=== PATIENT | female | born 1940 ===

== ENCOUNTER 2025-02-28 11:02 | Outpatient (REF) | payer MEDICARE, SELFPAY ==
[2025-02-28 18:21] LABS: MANUAL DIFF FLAG NO
[2025-02-28 18:23] LABS: Hematocrit 42.0 % (37.0-47.0); Hemoglobin 13.3 g/dl (12.0-16.0); Imm Gran Abs Auto 0.01 X10*3/uL (0.00-0.03); Imm Gran Pct Auto 0.2 % (0.0-0.4); Lymphocytes Absolute Auto 2.5 X10*3/uL (1.2-4.9); Mean Corpuscular HGB Conc 31.7 g/dl (31.0-35.0); Mean Corpuscular Hemoglobin 29.6 pg (27.0-33.0); Mean Corpuscular Volume 93.3 fL (80.0-98.0); NRBC Abs Auto 0.000 X10*3/uL (0.0-0.012); NRBC Pct Auto 0.0 /100WBC (0.0-0.2); Platelet Count 276 X10*3/uL (160-400); Red Blood Count 4.50 X10*6/uL (4.20-5.50); White Blood Count 5.8 X10*3/uL (4.8-10.8)
[2025-02-28 18:54] LABS: Alanine Aminotransferase 24 U/L (0-31); Aspartate Amino Transferase 38 U/L (5-31); Estimated Glomerular Filt Rate > 60
[2025-03-07 22:03] LABS: Anti Nuclear Antibody Pattern Nuclear, Speckled; Anti Nuclear Antibody Screen POSITIVE (NEGATIVE); Anti Nuclear Antibody Titer 1:80 titer
[2025-03-08 01:33] LABS: HLA B27 Negative (Negative)
--- OUTSIDE RECORDS SUMMARY | 2025-03-21 20:00 | XMS_ITS | Clinical Summary ---
Author Organization Unknown Care Team Providers Care Research/Program Director Name Role Phone YOAN CANO, BRAD Unavailable Unavaila jennifer MAY RN, EDMUNDO Unavailable Unavailable BRANDIN MARINN, FREDERIC Unavailable Unavailabl e [place] OT, JUANA Unavailable Unavailable CONDINO GRILL ATTENDANT/ADAMSON, DARÍO Unavailable Unav ailable SARA PT, ERNESTO Unavailable Unavailable COYLE PEANUT BLANCHER, CHI Unavailable Unavailable Payers Payer Name Policy Type Policy Number Effective Date Expira tion Date BCBSMA.HMOBLUE.MA.C.NOAUTH [id number] Problems Condition Name Condition Details Condition Category [...] WITH DIABETIC CATARACT Active 07-26 00:00: 00 VP SOFTWARE SUPPORT (CURRENT) USE OF ANTITHROMBOT 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 ELETS Active 07-26 00:00: 00 SENIOR CARE (CURRENT) USE OF SYSTEMIC STEROIDS Active 07-26 00:00: 00 HISTORY OF FALLING Active 07-26 00:00: 00 PERSONAL HISTORY OF NICOTINE DEPENDENCE Active 07-26 00:00: 00 SENIOR CARE (CURRENT) USE OF INSULIN Active 02-05 00:00: 00 SENIOR CARE (CURRENT) USE OF ORAL HYPOGLYCEMIC DRUGS Active [...] mg/mL eye drops 01-12 00:00: 00 Yes [id number] GLAUCOMA 1 drops DAILY 1 drops DAILY (route: ophthalmic (eye)) Med Classific ation: Ophthalmi c Agents Restasis 0.05 % eye drops in a dropperette 01-09 00:00: 00 01-22 00:00 :00 No [id number] Per instruc tions Per instructio ns (route: ophthalmic (eye)) Med Classific ation: Ophthalmi c Agents prednisone 20 mg tablet 01-04 00:00: 00 02-15 23:59 :00 No [id number] INFLAMMATIO N 1 tablet THREE TIMES A DAY 1 tablet THREE TIMES A DAY (route: oral) Med Classific ation: Endocrine calcium 600 mg (as carbonate)- vitamin D3 10 mcg (400 unit) tablet 01-02 00:00: 00 Yes [id number] SUPPLEMENT 1 tablet TWICE A DAY 1 tablet TWICE A DAY (route: oral) Med Classific ation: Electroly te Balance-N utritiona l Products meclizine 12.5 mg tablet 01-01 00:00: 00 Yes [id number] DIZZINESS 1 tablet 2 TIMES DAILY NEEDED 1 tablet 2 TIMES DAILY NEEDED (route: oral) Med Classific ation: Gastroint estinal Therapy Agents brimonidine 0.2 % eye drops 12-30 00:00: 00 01-22 00:00 :00 No [id number] Per instruc tions 3 TIMES A DAY Per instructio ns 3 TIMES A DAY (route: ophthalmic (eye)) Med Classific ation: Ophthalmi c Agents acetazolami de 250 mg tablet 12-28 00:00: 00 01-22 00:00 :00 No [id number] Per instruc tions TWICE A DAY Per instructio ns TWICE A DAY (route: oral) Med Classific ation: Cardiovas cular Therapy Agents sulfamethox azole 800 mg-trimetho prim 160 mg tablet 12-25 00:00: 00 01-22 00:00 :00 No [id number] Per instruc tions TWICE A DAY FOR 10 DAYS Per instructio ns TWICE A DAY FOR 10 DAYS (route: oral) Med Classific ation: Anti-Infe ctive Agents amlodipine 10 mg tablet 01-22 00:00: 00 02-15 23:59 :00 No [id number] HEART 1 tablet DAILY 1 tablet DAILY (route: oral) Med Classific ation: Cardiovas cular Therapy Agents atorvastati n 40 mg tablet 01-22 00:00: 00 Yes [id number] CHOLESTEROL 1 tablet DAILY 1 tablet DAILY (route: oral) Med Classific ation: Cardiovas cular Therapy Agents clopidogrel 75 mg tablet 01-22 00:00: 00 Yes [id number] ANTIPLATELE T 1 tablet DAILY 1 tablet DAILY (route: oral) Med Classific ation: Hematolog ical Agents Flonase Allergy Relief 50 mcg/actuati on nasal spray,suspe nsion 01-22 00:00: 00 Yes [id number] NOSE 2 spray DAILY 2 spray DAILY (route: nasal) Med Classific ation: Respirato ry Therapy Agents metoprolol tartrate 50 mg tablet 01-22 00:00: 00 Yes [id number] HEART 1 tablet DAILY 1 tablet DAILY (route: oral) Med Classific ation: Cardiovas cular Therapy Agents mirtazapine 15 mg tablet 01-22 00:00: 00 02-23 23:59 :00 No [id number] SLEEP 1 tablet BEDTIME 1 tablet BEDTIME (route: oral) Med Classific ation: Central Nervous System Agents pantoprazol e 20 mg tablet,jean yed release 01-22 00:00: 00 02-23 23:59 :00 No [id number] REFLUX 1 tablet 2 TIMES DAILY 1 tablet 2 TIMES DAILY (route: oral) Med Classific ation: Gastroint estinal Therapy Agents cephalexin 500 mg capsule 01-21 00:00: 00 01-28 23:59 :00 No [id number] UTI 1 capsule 4 TIMES DAILY 1 capsule 4 TIMES DAILY (route: oral) Med Classific ation: Anti-Infe ctive Agents metformin 500 mg tablet 01-21 00:00: 00 Yes [id number] DM 1 tablet 2 TIMES DAILY 1 tablet 2 TIMES DAILY (route: oral) Med Classific ation: Endocrine Admelog SoloStar U-100 Insulin lispro 100 unit/mL subcutaneou s pen 02-15 00:00: 00 02-21 23:59 :00 No [id number] BLOOD SUGAR 200-249 3 unit BEFORE MEALS 3 unit BEFORE MEALS ([facility] Med Classific ation: Endocrine Admelog SoloStar U-100 Insulin lispro 100 unit/mL subcutaneou s pen 02-15 00:00: 00 02-21 23:59 :00 No [id number] BLOOD SUGAR 250-299 5 unit BEFORE MEALS 5 unit BEFORE MEALS ([facility] Med Classific ation: Endocrine Admelog SoloStar U-100 Insulin lispro 100 unit/mL subcutaneou s pen 7-24 00:00: 00 02-21 23:59 :00 No [id number] BLOOD SUGAR 300-349 7 unit BEFORE MEALS 7 unit BEFORE MEALS ([facility] Med Classific ation: Endocrine Admelog SoloStar U-100 Insulin lispro 100 unit/mL [facility] s pen 02-16 00:00: 00 02-21 23:59 :00 No [id number] DIABETES 9 unit BEFORE MEALS 9 unit BEFORE MEALS (route: [facility]) Med Classific ation: Endocrine Admelog SoloStar U-100 Insulin lispro 100 unit/mL [facility] s pen 02-15 00:00: 00 02-21 23:59 :00 No [id number] BLOOD SUGAR 400-449 11 unit BEFORE MEALS 11 unit BEFORE MEALS (route: [facility]) Med Classific ation: Endocrine amlodipine 5 mg tablet 02-15 00:00: 00 Yes [id number] HIGH BLOOD PRESSURE 1 tablet DAILY 1 tablet DAILY (route: oral) Med Classific ation: Cardiovas cular Therapy Agents Lantus Solostar U-100 Insulin 100 unit/mL (3 mL) [facility] s pen 02-15 00:00: 00 02-21 23:59 :00 No [id number] DIABETES 12 unit BEDTIME 12 unit BEDTIME (route: [facility]) Med Classific ation: Endocrine metformin 500 mg tablet 02-21 00:00: 00 02-23 23:59 :00 No [id number] diabetes 1 tablet DAILY 1 tablet DAILY (route: oral) Med Classific ation: Endocrine metformin 500 mg tablet 02-24 00:00: 00 02-26 23:59 :00 No [id number] diabetes 1 tablet 2 TIMES DAILY 1 tablet 2 TIMES DAILY (route: oral) Med Classific ation: Endocrine metformin 500 mg tablet 02-27 00:00: 00 Yes [id number] diabetes Per instruc tions 2 TIMES DAILY Per instructio ns 2 TIMES DAILY (route: oral) Med Classific ation: Endocrine omeprazole 20 mg capsule,del ayed release 02-23 00:00: 00 Yes [id number] GERD 1 capsule 2 TIMES DAILY 1 [...] TION MANAGEMENT; RN TO ASSESS AND OBSERVE, PROCESS ENGINEERING MANAGER/ELECTRIC RANGE ASSEMBLER TO OBSERVE FALL RISK FACTORS AND EDUCATE PATIENT/CAREGIVER ON STRATEGIES TO MINIMIZE THE RISK OF FALLING. [code = FALL REDUCTION MANAGEMENT; RN TO ASSESS AND OBSERVE, PROCESS ENGINEERING MANAGER/ELECTRIC RANGE ASSEMBLER TO OBSERVE FALL RISK FACTORS AND EDUCATE PATIENT/CAREGIVER ON STRATEGIES TO MINIMIZE THE RISK OF FALLING.] Future Scheduled Test GENITOURIN BRYON MANAGEMENT; RN TO ASSESS AND TEACH, PROCESS ENGINEERING MANAGER/ELECTRIC RANGE ASSEMBLER TO OBSERVE AND TEACH RELATED TO ALTERED GENITOURINARY STATUS TO MINIMIZE COMPLICATIONS AND REDUCE HOSPITALIZATION. [code = GENITOURINARY MANAGEMENT; RN TO ASSESS AND TEACH, PROCESS ENGINEERING MANAGER/ELECTRIC RANGE ASSEMBLER TO OBSERVE AND TEACH RELATED TO ALTERED GENITOURINARY STATUS TO MINIMIZE COMPLICATIONS AND REDUCE HOSPITALIZATION.] Future Scheduled Test URINARY TR ACT INFECTION MANAGEMENT; RN/ELECTRIC RANGE ASSEMBLER/PROCESS ENGINEERING MANAGER TO PROVIDE SKILLED TEACHING AND SELF- CARE MANAGEMENT RELATED TO UTI TO MINIMIZE COMPLICATIONS AND REDUCE THE RISK OF HOSPITALIZATION. [code = URINARY TRACT INFECTION MANAGEMENT; RN/ELECTRIC RANGE ASSEMBLER/PROCESS ENGINEERING MANAGER TO PROVIDE SKILLED TEACHING AND SELF- CARE MANAGEMENT RELATED TO UTI TO MINIMIZE COMPLICATIONS AND REDUCE THE RISK OF HOSPITALIZATION.] Future Scheduled Test DIABETES M ANAGEMENT; RN TO ASSESS AND TEACH, ELECTRIC RANGE ASSEMBLER/PROCESS ENGINEERING MANAGER TO OBSERVE AND TEACH INSTRUCTIONS OF DIABETIC CARE TO INCLUDE: DIET DIABETIC, SKIN CARE, SIGNS AND SYMPTOMS OF HYPO/HYPERGLYCEMIA, PROPER ADMINISTRATION OF DIABETIC MEDICATION. RN/ELECTRIC RANGE ASSEMBLER/PROCESS ENGINEERING MANAGER TO INSTRUCT ON DIABETIC FOOT CARE AND MONITOR FOR SKIN LESIONS ON LOWER EXTREMITIES. RN TO ASSESS AND TEACH, ELECTRIC RANGE ASSEMBLER/PROCESS ENGINEERING MANAGER TO OBSERVE AND TEACH PATIENT/CAREGIVER ABILITY TO PERFORM AND RECORD BLOOD GLUCOSE TESTING ORDERED AND TO REPORT ABNORMAL FINDINGS TO PHYSICIAN. RN/ELECTRIC RANGE ASSEMBLER/PROCESS ENGINEERING MANAGER MAY PERFORM BLOOD GLUCOSE TEST NEEDED. RN/ELECTRIC RANGE ASSEMBLER/PROCESS ENGINEERING MANAGER TO REPORT TO PHYSICIAN BLOOD GLUCOSE READINGS GREATER THAN 350 OR LESS THAN 70 RN/ELECTRIC RANGE ASSEMBLER/PROCESS ENGINEERING MANAGER TO INSTRUCT PATIENT ON IMPORTANCE OF HGBA1C MONITORING, KIDNEY FUNCTION TEST, EYE AND FOOT EXAMS. [code = DIABETES MANAGEMENT; RN TO ASSESS AND TEACH, ELECTRIC RANGE ASSEMBLER/PROCESS ENGINEERING MANAGER TO OBSERVE AND TEACH INSTRUCTIONS OF DIABETIC CARE TO INCLUDE: DIET DIABETIC, SKIN CARE, SIGNS AND SYMPTOMS OF HYPO/HYPERGLYCEMIA, PROPER ADMINISTRATION OF DIABETIC MEDICATION. RN/ELECTRIC RANGE ASSEMBLER/PROCESS ENGINEERING MANAGER TO INSTRUCT ON DIABETIC FOOT CARE AND MONITOR FOR SKIN LESIONS ON LOWER EXTREMITIES. RN TO ASSESS AND TEACH, ELECTRIC RANGE ASSEMBLER/PROCESS ENGINEERING MANAGER TO OBSERVE AND TEACH PATIENT/CAREGIVER ABILITY TO PERFORM AND RECORD BLOOD GLUCOSE TESTING ORDERED AND TO REPORT ABNORMAL FINDINGS TO PHYSICIAN. RN/ELECTRIC RANGE ASSEMBLER/PROCESS ENGINEERING MANAGER MAY PERFORM BLOOD GLUCOSE TEST NEEDED. RN/ELECTRIC RANGE ASSEMBLER/PROCESS ENGINEERING MANAGER TO REPORT TO PHYSICIAN BLOOD GLUCOSE READINGS GREATER THAN 350 OR LESS THAN 70 RN/ELECTRIC RANGE ASSEMBLER/PROCESS ENGINEERING MANAGER TO INSTRUCT PATIENT ON IMPORTANCE OF HGBA1C MONITORING, KIDNEY FUNCTION TEST, EYE AND FOOT EXAMS.] Future Scheduled Test RN TO OBSE RVE, ASSESS, EVALUATE, AND DEVELOP AN INDIVIDUALIZED PLAN OF CARE. AGENCY MAY ACCEPT ORDERS FROM CONSULTING PHYSICIANS RN TO OBSERVE AND ASSESS, PROCESS ENGINEERING MANAGER/ELECTRIC RANGE ASSEMBLER TO OBSERVE FOR RISK FOR FALLS AND INSTRUCT IN FALL PREVENTION, HOME SAFETY, MEDICATION MANAGEMENT, INFECTION PREVENTION, AND NUTRITION MANAGEMENT. RN/PROCESS ENGINEERING MANAGER/ELECTRIC RANGE ASSEMBLER NURSE MAY PERFORM O2 SATURATION LEVEL ON ADMISSION AND PRN FOR RN TO ASSESS/PROCESS ENGINEERING MANAGER TO OBSERVE PATIENT, WITH NOTIFICATION TO THE PHYSICIAN IF SATURATION IS 90% IN THE ABSENCE OF MORE SPECIFIC PARAMETERS FROM THE PHYSICIAN. AGENCY MAY PERFORM A RESUMPTION OF CARE VISIT FOLLOWING ANY HOSPITAL ADMISSION. RN/PROCESS ENGINEERING MANAGER/ELECTRIC RANGE ASSEMBLER TO MONITOR CO-MORBID CONDITIONS LISTED ON THE PLAN OF CARE AND ANY NEW CONDITIONS THAT PRESENT THEMSELVES DURING THIS EPISODE TO IDENTIFY CHANGES AND INTERVENE TO MINIMIZE COMPLICATIONS. [code = RN TO OBSERVE, ASSESS, EVALUATE, AND DEVELOP AN INDIVIDUALIZED PLAN OF CARE. AGENCY MAY ACCEPT ORDERS FROM CONSULTING PHYSICIANS RN TO OBSERVE AND ASSESS, PROCESS ENGINEERING MANAGER/ELECTRIC RANGE ASSEMBLER TO OBSERVE FOR RISK FOR FALLS AND INSTRUCT IN FALL PREVENTION, HOME SAFETY, MEDICATION MANAGEMENT, INFECTION PREVENTION, AND NUTRITION MANAGEMENT. RN/PROCESS ENGINEERING MANAGER/ELECTRIC RANGE ASSEMBLER NURSE MAY PERFORM O2 SATURATION LEVEL ON ADMISSION AND PRN FOR RN TO ASSESS/PROCESS ENGINEERING MANAGER TO OBSERVE PATIENT, WITH NOTIFICATION TO THE PHYSICIAN IF SATURATION IS 90% IN THE ABSENCE OF MORE SPECIFIC PARAMETERS FROM THE PHYSICIAN. AGENCY MAY PERFORM A RESUMPTION OF CARE VISIT FOLLOWING ANY HOSPITAL ADMISSION. RN/PROCESS ENGINEERING MANAGER/ELECTRIC RANGE ASSEMBLER TO MONITOR CO-MORBID CONDITIONS LISTED ON THE PLAN OF CARE AND ANY NEW CONDITIONS THAT PRESENT THEMSELVES DURING THIS EPISODE TO IDENTIFY CHANGES AND INTERVENE TO MINIMIZE COMPLICATIONS.] Future Scheduled Test PAIN MANAG EMENT; RN TO ASSESS AND TEACH, ELECTRIC RANGE ASSEMBLER/PROCESS ENGINEERING MANAGER TO OBSERVE AND TEACH AND PROVIDE EDUCATION ON PAIN MANAGEMENT TECHNIQUES. [code = PAIN MANAGEMENT; RN TO ASSESS AND TEACH, ELECTRIC RANGE ASSEMBLER/PROCESS ENGINEERING MANAGER TO OBSERVE AND TEACH AND PROVIDE EDUCATION ON PAIN MANAGEMENT TECHNIQUES.] Future Scheduled Test RISK FOR H OSPITALIZATION; RN TO ASSESS/TEACH, ELECTRIC RANGE ASSEMBLER/PROCESS ENGINEERING MANAGER TO OBSERVE/TEACH PATIENT/CAREGIVER ON RISK FOR HOSPITALIZATION/EMERGENCY ROOM VISITS, TEACH SIGNS AND SYMPTOMS THAT PUT PATIENT AT RISK, WHEN TO NOTIFY NURSE/PHYSICIAN OF COMPLICATIONS/DECLINE, AND WHEN TO CALL 911. [code = RISK FOR HOSPITALIZATION; RN TO ASSESS/TEACH, ELECTRIC RANGE ASSEMBLER/PROCESS ENGINEERING MANAGER TO OBSERVE/TEACH PATIENT/CAREGIVER ON RISK FOR HOSPITALIZATION/EMERGENCY ROOM VISITS, TEACH SIGNS AND SYMPTOMS THAT PUT PATIENT AT RISK, WHEN TO NOTIFY NURSE/PHYSICIAN OF COMPLICATIONS/DECLINE, AND WHEN TO CALL 911.] Future Scheduled Test CARDIOVASC ULAR SYSTEM; RN TO ASSESS/TEACH, PROCESS ENGINEERING MANAGER/ELECTRIC RANGE ASSEMBLER TO OBSERVE/TEACH RELATED TO ALTERED CARDIOVASCULAR STATUS TO MINIMIZE COMPLICATIONS AND REDUCE HOSPITALIZATION. [code = CARDIOVASCULAR SYSTEM; RN TO ASSESS/TEACH, PROCESS ENGINEERING MANAGER/ELECTRIC RANGE ASSEMBLER TO OBSERVE/TEACH RELATED TO ALTERED CARDIOVASCULAR STATUS TO MINIMIZE COMPLICATIONS AND REDUCE HOSPITALIZATION.] Future Scheduled Test URINARY MO LECULAR TESTING PROTOCOL UP TO 2 PRN RN/PROCESS ENGINEERING MANAGER/ELECTRIC RANGE ASSEMBLER VISITS MAY BE PERFORMED FOR S/S OF UTI. RN TO ASSESS, PROCESS ENGINEERING MANAGER/ELECTRIC RANGE ASSEMBLER TO OBSERVE INITIATION OF UTI PROTOCOL. RN/ELECTRIC RANGE ASSEMBLER/PROCESS ENGINEERING MANAGER TO INSTRUCT PATIENT AND/OR CAREGIVER ON S/S OF UTI TO REPORT TO RN/ELECTRIC RANGE ASSEMBLER/PROCESS ENGINEERING MANAGER IF NEW OR WORSENING SYMPTOMS. DRINK PLENTY OF WATER THROUGHOUT THE DAY TO MAINTAIN HYDRATION (UNLESS CONTRAINDICATED.) URINATE WHEN THE URGE IS FELT, DO NOT WAIT. WASH GENITALS DAILY. WIPE FROM FRONT TO BACK AFTER HAVING A BOWEL MOVEMENT. RN/ELECTRIC RANGE ASSEMBLER/PROCESS ENGINEERING MANAGER TO OBTAIN MOLECULAR URINE TESTING BY OPTION 1 OR OPTION 2 (OPTION 1) RN/ELECTRIC RANGE ASSEMBLER/PROCESS ENGINEERING MANAGER TO OBTAIN U/A WITH REFLEX TO UTI PANEL (MOLECULAR) VIA CLEAN CATCH URINE AND IF UNABLE TO OBTAIN MAY PERFORM AN IN AND OUT CATH. IF PATIENT HAS INDWELLING CATHETER MAY OBTAIN FROM SAMPLING PORT. (OPTION 2) RN/ELECTRIC RANGE ASSEMBLER/PROCESS ENGINEERING MANAGER TO OBTAIN UTI PANEL (MOLECULAR) VIA SWAB COLLECTION METHOD FROM ADULT BRIEF/DIAPER OR PAD IF PATIENT IS INCONTINENT. NOTIFY PROVIDER OF RESULTS AND OBTAIN FURTHER ORDERS. [code = URINARY MOLECULAR TESTING PROTOCOL UP TO 2 PRN RN/PROCESS ENGINEERING MANAGER/ELECTRIC RANGE ASSEMBLER VISITS MAY BE PERFORMED FOR S/S OF UTI. RN TO ASSESS, PROCESS ENGINEERING MANAGER/ELECTRIC RANGE ASSEMBLER TO OBSERVE INITIATION OF UTI PROTOCOL. RN/ELECTRIC RANGE ASSEMBLER/PROCESS ENGINEERING MANAGER TO INSTRUCT PATIENT AND/OR CAREGIVER ON S/S OF UTI TO REPORT TO RN/ELECTRIC RANGE ASSEMBLER/PROCESS ENGINEERING MANAGER IF NEW OR WORSENING SYMPTOMS. DRINK PLENTY OF WATER THROUGHOUT THE DAY TO MAINTAIN HYDRATION (UNLESS CONTRAINDICATED.) URINATE WHEN THE URGE IS FELT, DO NOT WAIT. WASH GENITALS DAILY. WIPE FROM FRONT TO BACK AFTER HAVING A BOWEL MOVEMENT. RN/ELECTRIC RANGE ASSEMBLER/PROCESS ENGINEERING MANAGER TO OBTAIN MOLECULAR URINE TESTING BY OPTION 1 OR OPTION 2 (OPTION 1) RN/ELECTRIC RANGE ASSEMBLER/PROCESS ENGINEERING MANAGER TO OBTAIN U/A WITH REFLEX TO UTI PANEL (MOLECULAR) VIA CLEAN CATCH URINE AND IF UNABLE TO OBTAIN MAY PERFORM AN IN AND OUT CATH. IF PATIENT HAS INDWELLING CATHETER MAY OBTAIN FROM SAMPLING PORT. (OPTION 2) RN/ELECTRIC RANGE ASSEMBLER/PROCESS ENGINEERING MANAGER TO OBTAIN UTI PANEL (MOLECULAR) VIA SWAB COLLECTION METHOD FROM ADULT BRIEF/DIAPER OR PAD IF PATIENT IS INCONTINENT. NOTIFY PROVIDER OF RESULTS AND OBTAIN FURTHER ORDERS.] Future Scheduled Test MEDICATION MANAGEMENT; RN/PROCESS ENGINEERING MANAGER/ELECTRIC RANGE ASSEMBLER TO REVIEW MEDICATIONS FOR INTERACTIONS, EFFECTIVENESS OF DRUG THERAPY, AND SIGNS/SYMPTOMS OF ADVERSE REACTIONS. MAY INSTRUCT AND REINFORCE MEDICATION TEACHING RELATED TO THE USE OF MEDICATIONS, DOSAGE, FREQUENCY, PURPOSE, SIDE EFFECTS, AND TO REPORT COMPLICATIONS. [code = MEDICATION MANAGEMENT; RN/PROCESS ENGINEERING MANAGER/ELECTRIC RANGE ASSEMBLER TO REVIEW MEDICATIONS FOR INTERACTIONS, EFFECTIVENESS OF DRUG THERAPY, AND SIGNS/SYMPTOMS OF ADVERSE REACTIONS. MAY INSTRUCT AND REINFORCE MEDICATION TEACHING RELATED TO THE USE OF MEDICATIONS, DOSAGE, FREQUENCY, PURPOSE, SIDE EFFECTS, AND TO REPORT COMPLICATIONS.] Medication 2025-03-02 00:00:00 metformin 500 mg tablet [code = 132729] Med Classification: Endocrine Goal 2025-02-15 Patient Goal - T O FEEL BETTER Goal Patient Goal - T O FEEL BETTER Goal Provider Goal - Goal Provider Goal [...] End Date/Time Encounter Type Admission Type Attending [facility] Care Department Encounter ID Discharge Date Discharge Status Discharge Condition Discharge Reason Percent Goals Met 2025-01-22 00:00:00 2025-03-22 00:00:00 Outpatient NEW ADMISSION EDMUNDO MAY [facility] [id number] .
== END 2025-02-28 11:03 | disposition home or self-care (01) ==
LOC: HO.HKASLDS 11:02
PROVIDERS: PCP Internal Medicine; Visit Provider Internal Medicine Rheumatology
DX: M25.50 Pain in unspecified joint (principal); H20.00 Unspecified acute and subacute iridocyclitis; Z79.899 Other long term (current) drug therapy
CPT/HCPCS: 36415; 82565; 84450; 84460; 85025; 85652; 86038; 86039; 86140; 86812; 99202

== ENCOUNTER 2025-02-28 11:02 | Outpatient (AMB) | payer MEDICARE, SELFPAY ==
--- NOTE | 2025-02-28 11:03 | A.OFFVIS_ITS ---
Vital Signs 02/28/25 11:06 Height 5 ft 6 in Weight 143 lb BMI 23.1 BP 110/70 Blood Pressure Location Rt brachial Position Sitting Pulse 84 Pulse Source Pulse Oximeter Pulse Oximetry (%) 95 Oxygen Delivery Method Room Air Intake Visit Reasons: Uveitis/Opthalmology ref Intake Note: Patient resents today for uevitis an joint pain. Accompanied by: Daughter Allergies aspirin Allergy (Mild, Verified 02/28/25 11:08) Rash HPI HPI Uveitis/Opthalmology ref: Details: New patient evaluation. She is accompanied with her daughter Gabriela. 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 Per horse racetrack manager's note she had a combined presentation raising concern for sclerouveitis with consideration of initial presentation. 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 She had laboratory workup and a chest x-ray, which I do not have results of. On 01/12/2025 eye exam reveals essentially resolved granuloma/follicules bilateral on oral prednisone 60 mg q.day suggesting inflammatory etiology. Prednisone was tapered to 40 mg for 1 week, 30 mg for 1 week, 20 mg for 1 week and 15 mg for 1 week, 10 mg for 1 week, 7.5 mg for 1 week, 5 mg for 1 week, then stop. She then developed dyspnea and was admitted in the hospital. She has a new diagnosis of diabetes on metformin. She was discharged to rehab. At this time she has physical therapy and occupational therapy at home. She feels that with prednisone course her eyes feel better. 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 She has some vision in her left eye. During her hospitalization she was treated for thrush. She developed sores in her tongue, which have resolved. She had a stroke last year resulting in residual weakness of left upper and lower extremity. Pain in joints, shoulders, hips, knees for 3 years. Worse in the last year after stroke. Ankles are swollen. Tylenol is ineffective. She does not take any NSAIDs. She was seeing Dr. Montero for knee OA receiving regular cortisone injections every 6 months. MS 2-2.5 hours Denies fevers, weight loss. She is experiencing fatigue. Denies dry eyes, dry mouth, hearing loss, ringing in ears, bleeding gums, sores in mouth, hoarseness, chest pain, Raynaud's phenomenon, nausea, vomiting, diarrhea, urinary symptoms, photosensitivity, hair loss, psoriasis, or rash. She has difficulty swallowing from the stroke. Her daughter has lupus. Past medical history significant for diabetes, hepatic steatosis, hyperlipidemia, hypertension, osteoarthritis. Past surgical history is significant for hysterectomy. She denies smoking or drinking alcohol. Denies any use of recreational drugs. Physical Exam Vital Signs: Last Vital Signs Pulse 84 02/28/25 11:06 BP 110/70 02/28/25 11:06 Pulse Ox 95 02/28/25 11:06 Oxygen Delivery Method Room Air 02/28/25 11:06 BMI result Body Mass Index 23.1 Const Other: General: Comfortable CVS: RRR Respiratory: clear to auscultation bilaterally. Good respiratory effort Skin: No lesions seen MSK: Tender right 2nd to 5th MCPs, bilateral PIPs, ulnar deviation of bilateral hands at MCPs. Right 2nd and 4th PIP synovitis present. She has Heberden nodes and Usman's nodes. Tender left shoulder with limited abduction actively 90 degrees, which increases to 160 passively. She has pain with internal and external rotation of left shoulder with limitation in range of motion. Right shoulder abduction is full. She has internal external rotation of right shoulder but it is not full. She has [id number] effusions of bilateral knees with tenderness on palpation. Bilateral knee flexion is 100 degrees. Limited full external rotation of bilateral hips. Bilateral ankle tenderness and MTP tenderness. She has bilateral valgus valgus deformity. Assessment & Plan Assessment & Plan (1) Multiple joint pain: Comment: Her clinical exam of the hands is concerning for a chronic deforming inflammatory arthritis with superimposed osteoarthritis. She has synovitis in right 2nd and 4th PIP, which can also be due to osteoarthritis. She does not have any other signs or symptoms suggestive of a systemic connective tissue disease. I will pursue further workup for inflammatory arthritis and obtain results of recent workup ordered by her horse racetrack manager's. Code(s): M25.50 - Pain in unspecified joint Category: Medical Plan: Requesting lab results ordered in November by Dr. Sumner Requesting chest x-ray results Labs ordered including HLA B27 Bilateral hands and feet x-rays ordered Return to clinic in after 2 weeks next available appointment to review results (2) Acute anterior uveitis of both eyes: Code(s): H20.00 - Unspecified acute and subacute iridocyclitis Category: Medical Plan: Being managed by Ophthalmology Patient does not have an appointment with Dr. Sumner because it was canceled due to her recent hospitalization. I have asked her to schedule one. Orders: Orders Erythrocyte Sedimentation Rate Today H20.00 - Unspecified acute and subacute iridocyclitis, M25.50 - Pain in unspecified joint, Z79.899 - Other rodent exterminator (current) drug therapy Aspartate Amino Transferase Today H20.00 - Unspecified acute and subacute iridocyclitis, M25.50 - Pain in unspecified joint HLA B27 Today H20.00 - Unspecified acute and subacute iridocyclitis, M25.50 - Pain in unspecified joint XR Foot Luisito 3V Today H20.00 - Unspecified acute and subacute iridocyclitis, M25.50 - Pain in unspecified joint XR Hand Bilat min 3v Today H20.00 - Unspecified acute and subacute iridocyclitis, M25.50 - Pain in unspecified joint ERIC Reflex Titer and Pattern Today H20.00 - Unspecified acute and subacute iridocyclitis, M25.50 - Pain in unspecified joint C Reactive Protein Today H20.00 - Unspecified acute and subacute iridocyclitis, M25.50 - Pain in unspecified joint, Z79.899 - Other rodent exterminator (current) drug therapy Creatinine Today H20.00 - Unspecified acute and subacute iridocyclitis, M25.50 - Pain in unspecified joint Alanine Aminotransferase Today H20.00 - Unspecified acute and subacute iridocyclitis, M25.50 - Pain in unspecified joint Complete Blood Count Auto Diff Today H20.00 - Unspecified acute and subacute iridocyclitis, M25.50 - Pain in unspecified joint Hepatitis B,C Profile Today H20.00 - Unspecified acute and subacute iridocyclitis, M25.50 - Pain in unspecified joint Coding Level of Care Code New Pt Level 4 (62484) Diagnoses Multiple joint pain M25.50 Acute anterior uveitis of both eyes H20.00
[2025-02-28 11:06] VITALS: BP 110/70; PULSE 84; O2SAT 95; BMI 23.1
--- OUTSIDE RECORDS SUMMARY | 2025-02-28 11:48 | XMS_ITS | Clinical Summary ---
Author Organization [facility] Address [address] [place] [address] Phone Care Team Providers Care Crosstie Inspector Name Role Phone Candelario Marsh MD Primary Care Provider [phone] Francisco White MD Unavailable [phone] Subhash Bui MD Unavailable + Allergies Active Allergy Reactions Criticality Noted Date Comments Aspirin 06/05/2019 Medications duloxetine HCl (DULOXETINE ORAL) Take by mouth. Active fluticasone propionate (FLONASE) 50 mcg/actuation nasal spray 1 spray by Nasal route daily. Active montelukast sodium (MONTELUKAST ORAL) Take by mouth. Active OMEPRAZOLE ORAL Take by mouth. Active quetiapine fumarate (QUETIAPINE ORAL) Take by mouth. Active SIMVASTATIN ORAL Take by mouth. Active traZODone (DESYREL) 25 mg half tablet Take 50 mg by mouth nightly at bedtime. Active cyanocobalamin, vitamin B-12, (VITAMIN B-12 ORAL) Take by mouth. Active calcium carbonate/vitam in D3 (CALCIUM 500 + D ORAL) Take by mouth. Active timolol (TIMOPTIC) 0.25 % ophthalmic solution Place 1 drop into each eye 2 (two) times a day. Active netarsudil mesylate (RHOPRESSA OPHT) Apply to eye. Active brinzolamide/br imonidine tart (SIMBRINZA OPHT) Apply to eye. Active Active Problems No known active problems Social History Tobacco Use Types Packs/Day Years Used Date Smoking Tobacco: Never Smokeless Tobacco: Never Alcohol Use Standard Drinks/Week Comments Never 0 (1 standard drink = 0.6 oz pur e alcohol) Education Answer Date Recorded Are you interested in more education? Not on aden e 11/20/2022 Are you concerned about learning? Not on file 11/20/2022 No 11/20/2022 No 11/20/2022 Digital Access Answer Date Recorded No 12/19/2022 No 12/19/2022 No 12/19/2022 Reliable internet access at home? Not on file 12/19/2022 Device with a working camera? Not on file Comments Unknown Sex and Gender Information Value Date Recorded Sex Assigned at Not on file Legal Sex Female 11:01 AM EDT Gender Identity Not on file Sexual Orientation Not on file Last Filed Vital Signs Vital Sign Reading Time Taken Comments Blood Pressure 162/80 06/05/2019 11:53 AM EST Pulse 74 06/05/2019 11:53 AM EST Temperature - - Respiratory Rate 17 06/05/2019 11:53 AM EST Oxygen Saturation - - Inhaled Oxygen Concentration - - Weight - - Height - - Body Mass Index - - Plan of Treatment Health Maintenance Due Date Last Done Comments DEPRESSION SCREENING 1951 OSTEOPOROSIS SCREENING INITI AL (ONE-TIME) 11/27/2004 ZOSTER VACCINES (2 of 3) 11/13/2012 09/18/2012 RSV VACCINE (1 - 1-dose 75+ series) 11/27/2014 Adult Td,Tdap Booster 09/14/2022 09/14/2012 , 08/13/2011 COVID-19 VACCINE (4 - 2023-2 5 season) 2024 09/28/2020, 09/07/2020, 08/31/2020 PNEUMOCOCCAL VACCINES (50+ years) Completed 11/04/2016, 06/06/2009 HEPATITIS A VACCINES Aged Out No long er eligible based on patient's age to complete this topic HIB VACCINES Aged Out No longer eligi ble based on patient's age to complete this topic MENINGOCOCCAL VACCINES (ACWY) Aged Out No longer eligible based on patient's age to complete this topic MENINGOCOCCAL VACCINES (B) Aged Out N o longer eligible based on patient's age to complete this topic Medical Devices Not on file Insurance [address] [facility] [address] MEDICARE HMO BLUE REPLACEMENT [address] [facility] [address] MEDICARE HMO BLUE REPLACEMENT [address] [facility] [address] MEDICARE HMO BLUE REPLACEMENT [address] [facility] [address] MEDICARE HMO BLUE REPLACEMENT [address] [facility] [address] MEDICARE HMO BLUE REPLACEMENT [address] [facility] [address] MEDICARE HMO BLUE REPLACEMENT [address] [facility] [address] MEDICARE HMO BLUE REPLACEMENT Care Teams Crosstie Inspector Relationship Specialty Start Date End Date Candelario Marsh MD [address] [place] [address] PCP - General Internal Medicine 05/04/19 Francisco White MD [address] [place] [address], [address] [place] [address] Ophthalmology 06/07/19 Subhash Bui MD [address] [place] [address] [address] [address] Pulmonary Disease 06/07/19 Additional Source Comments The information contained in this document represents components of the legal health record. It is not the complete legal health record.[facility]
--- OUTSIDE RECORDS SUMMARY | 2025-02-28 11:48 | XMS_ITS | Encounter Summary ---
Author Organization [facility] Address [address] [place] [address] Care Team Providers Care Antique Refinisher Name Role Phone Candelario Marsh MD Primary Care Provider [phone] Reason for Visit * Reason Onset Date Comments Request For Order(s) 02/26/2025 [employer] [id number] Encounter Details Date Type Department Care Team (Late st Contact Info) Description 02/26/2025 [facility] [address] [place] [phone] Candelario Marsh MD [address] [place] [id number] Request For Order(s) ([employer] [id number]) Social History Tobacco Use Types Packs/Day Years Used Date Smoking Tobacco: Never Smokeless Tobacco: Never Alcohol Use Standard Drinks/Week Comments No 0 (1 standard drink = 0.6 oz pur e alcohol) ocaasionaly Housing Instability Answer Date Recorde d Are you worried that in the next 2 months you may not have stable housing? No 01/26/2025 Food Access & Nutrition Answer Date Rec orded Do you have access to a vari ety of food including fruits and vegetables? Yes 01/26/2025 Access to Healthcare Answer Date Record ed Within the last 3 months, ho w many times did you visit the emergency department for your medical care? 5 02/14/2025 Health Literacy Answer Date Recorded How often do you need to hav e someone help you when you read instructions, pamphlets, or other written material from your doctor or pharmacy? Never 01/26/2025 Caregiver: How often do you need to have someone help you when you read instructions, pamphlets, or other written material from your doctor or pharmacy? Not on file 01/26/2025 Financial Risk Answer Date Recorded How hard is it for you to pa y for the very basics like food, housing, medical care, and air conditioning / heating? Not asked 02/14/2025 Transportation Answer Date Recorded Has the lack of transportati on kept you from meetings, work, or from getting things needed for daily living? Not asked 2024 Has the lack of transportati on kept you from medical appointments or from getting medications? Not asked 02/14/2025 Social Isolation Answer Date Recorded How often do you feel lonely or isolated from those around you? Not asked 02/14/2025 Food Risk Answer Date Recorded Within the past 12 months we worried whether our food would run out before we got money to buy more. Not asked 02/14/2025 Within the past 12 months th e food we bought just didn't last and we didn't have money to get more. Not asked 02/14/2025 Dependent Care Answer Date Recorded Do you need help finding or paying for care for your loved ones. For example, child development instructor or elderly care for an older adult? No 01/26/2025 Education Answer Date Recorded Do you think completing more education or training, like finishing a GED, going to college, or learning a trade, would be helpful for you? N/A 02/14/2025 Employment and Income Answer Date Recor ded During the last four weeks, have you been actively looking for work? No 01/26/2025 Living Situation Answer Date Recorded What is your living situation? 0 02/14/2025 Interpersonal Safety Answer Date Record ed Physical Abuse 01/26/2025 Verbal Abuse 01/26/2025 Comments No Sex and Gender Information Value Date Recorded Sex Assigned at Not on file Legal Sex Female 4:01 AM EST Gender Identity Not on file Sexual Orientation Straight 01/26/2025 5: 58 PM EDT documented as of this encounter Progress Notes * Olga Larios MA - 02/27/2025 9:15 AM EDT Signed and faxed. * Abe Jolly - 02/26/2025 10:10 AM EDT Faxed order received from [facility]. Orders placed in Candelario Marsh MD bin for signing, please fax to [phone] documented in this encounter Plan of Treatment Upcoming Encounters Date Type Department Care Team (Late st Contact Info) Description 03/02/2025 11:00 AM EDT Office Visit Internal Medicine - [address] [address] Candelario Marsh MD [address] [place] [address] 03/15/2025 11:00 AM EDT Ancillary Procedure [facility] [address] [facility] [address] [place] [address] 03/19/2025 11:20 AM EDT Office Visit Neurostroke - [place] [address] [place] [address] Cortez Ortiz PA [address] [place] [address] 04/03/2025 1:00 PM EDT Procedure visit Urogynecology - [place] [address] [place] [address] Kamilah Mcconnell MD [address] [facility] [address] [place] [address] 04/20/2025 1:30 PM EDT Medication Management Adult Medicine - [place] [address] [place] [address] Mary Becker, PharmD [address] [place] [address] documented as of this encounter Goals Goal Patient Goal Type Associated Problems Recent Progress Patient-Stated? Author Adherence to Treatment Plan General Merly Rodriguez, RN Note: Pt will take her BG reading before all meals Pt will carry glucose gel or tablets with her at all times and keep at the bedside as well documented as of this encounter Visit Diagnoses Not on filedocumented in this encounter Care Teams Antique Refinisher Relationship Specialty Start Date End Date Candelario Marsh MD [address] [place] [address] PCP - General Internal Medicine 04/22/17 documented as of this encounter
== END 2025-02-28 12:35 | disposition home or self-care (01) ==
LOC: HO.RHES 11:02
PROVIDERS: PCP Internal Medicine; Visit Provider Internal Medicine Rheumatology
DX: M25.50 Pain in unspecified joint (principal); H20.00 Unspecified acute and subacute iridocyclitis
CPT/HCPCS: 99204

== ENCOUNTER 2025-03-02 13:05 | Outpatient (REF) | payer MEDICARE, SELFPAY ==
--- NOTE | ~2025-03-02 | XR_ITS ---
XR FOOT LUISITO 3V HISTORY: Ali arthritic joint pain. Rule out inflammatory arthritis. COMPARISON: None. TECHNIQUE: 3 views of the each foot were obtained. FINDINGS: RIGHT FOOT: There is mild diffuse osteopenia. No periarticular osteopenia. No malalignment. Degenerative appearing arthritis throughout the interphalangeal joints. Mild degenerative arthritis in the first MTP joint. No periarticular erosions identified. There is a normal plantar arch. The midfoot and hindfoot appear normal. There are tiny dorsal and plantar calcaneal spurs. There are vascular calcifications in the soft tissues. Soft tissues otherwise normal. LEFT KNEE: There is mild diffuse osteopenia. No periarticular osteopenia. No malalignment. Degenerative appearing arthritis throughout the interphalangeal joints. Mild degenerative arthritis in the first MTP joint. No periarticular erosions identified. There is a normal plantar arch. The midfoot and hindfoot appear normal. There are tiny dorsal and plantar calcaneal spurs. There are vascular calcifications in the soft tissues. Soft tissues otherwise normal. XR/XR Foot Luisito 3V IMPRESSION: 1. No convincing evidence of erosive arthritis of either foot. 2. Mild diffuse osteopenia. Degenerative arthritis in the interphalangeal joints and mild changes in the first MTP joint. 3. Tiny plantar and dorsal calcaneal spurs bilaterally. 4. Vascular calcifications in the soft tissues. Electronically signed by: Speedy Stephenson MD 03/02/2025 02:18 PM EDT
--- NOTE | ~2025-03-02 | XR_ITS ---
EXAMINATION: XR HAND/WRIST, RIGHT XR HAND/WRIST, LEFT CLINICAL INFORMATION: H20.00 - Unspecified acute and subacute iridocyclitis COMPARISON: None TECHNIQUE: PA, lateral, and oblique views of the each hand and wrist. FINDINGS: RIGHT HAND/WRIST: There is diffuse mild osteopenia. There is no periarticular osteopenia of note. There are moderate arthritic changes in the DIP and PIP joints of the digits, and interphalangeal joint of the thumb. These have productive bony appearance consistent with degenerative arthritis or possibly primary erosive osteoarthritis. There may be central erosions involving the DIP joints, particularly in the second and fifth. There is mild joint space narrowing involving the first through third MCP joints. There is radiocarpal joint space narrowing. There is chondrocalcinosis of the TFCC, raising the possibility of CPPD. There are no soft tissue abnormalities. LEFT HAND/WRIST: There is diffuse mild osteopenia. There is no periarticular osteopenia of note. There are moderate arthritic changes in the DIP and PIP joints of the digits, and interphalangeal joint of the thumb. These have productive bony appearance consistent with degenerative arthritis or possibly primary erosive osteoarthritis. There is mild joint space narrowing involving the first through third MCP joints. There is radiocarpal joint space narrowing. There is chondrocalcinosis of the TFCC, raising the possibility of CPPD. There are no soft tissue abnormalities. XR/XR Hand Bilat min 3v IMPRESSION: 1. Diffuse mild osteopenia. 2. Polyarthritis most significant in the bilateral interphalangeal joints, with productive bony changes and an appearance most consistent with either osteoarthrosis or primary erosive osteoarthrosis. 3. 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 Electronically signed by: Speedy Stephenson MD 03/02/2025 02:14 PM EDT
--- OUTSIDE RECORDS SUMMARY | 2025-03-02 13:09 | XMS_ITS | Encounter Summary ---
Author Organization [facility] Address [address] [place] [address] Care Team Providers Care Drivers' Cash Clerk Name Role Phone Candelario Marsh MD Primary Care Provider [phone] Reason for Visit * Reason Onset Date Comments Request For Order(s) 02/26/2025 [employer] [id number] Encounter Details Date Type Department Care Team (Late st Contact Info) Description 02/26/2025 [facility] [address] [place] [phone] Candelario Marsh MD [address] [place] [address] Request For Order(s) ([employer] [id number]) Social History Tobacco Use Types Packs/Day Years [...] care for your loved ones. For example, professor of early childhood education or elderly care for an older adult? [...] 10:10 AM EDT Faxed order received from [employer]. Orders placed in Candelario Marsh MD bin for signing, please fax to [phone] documented in this encounter Plan of Treatment Upcoming Encounters Date Type Department Care Team (Late st Contact Info) Description 03/15/2025 11:00 AM EDT Ancillary Procedure [facility] - [address] [place] [address] [place] [address] 03/19/2025 11:20 AM EDT Office Visit Neurostroke - [place] [address] [place] [address] Proxee, JAYDE Roy [address] [place] [address] 04/03/2025 1:00 PM EDT Procedure visit Urogynecology - [place] [address] [place], [place] [phone] Kamilah Mcconnell MD [address] [facility] [address] [place] [address] 04/17/2025 11:15 AM EDT Office Visit Internal Medicine - [place] [address] [place] [address] Linette Regan, TORRI [address] [place] [address] 04/20/2025 1:30 PM EDT Medication Management Adult Medicine - [place] [address] [place] [address] Mary Becker, PharmD [address] [place] [address] 07/30/2025 12:00 PM EST Office Visit Internal Medicine - [address] [phone] Kristy Cedillo MD [address] [place] [address] documented as of this encounter Goals Goal [...] on filedocumented in this encounter Care Teams Drivers' Cash Clerk Relationship Specialty Start Date End Date Candelario Marsh MD [address] [place] [address] PCP - General Internal Medicine 04/22/17 03/01/25 documented as of this encounter
--- OUTSIDE RECORDS SUMMARY | 2025-03-02 13:09 | XMS_ITS | Clinical Summary ---
Author Organization [facility] Address [address] [place] [address] Phone Care Team Providers Care Fourdrinier Machine Tender Name Role Phone Candelario Marsh MD Primary Care Provider [phone] Francisco White MD Unavailable [phone] Subhash Bui MD Unavailable + Allergies [...] topic Medical Devices Not on file Insurance Care Teams Fourdrinier Machine Tender Relationship Specialty Start Date End Date Candelario Marsh MD [address] [place] [address] PCP - General Internal Medicine 05/04/19 Francisco White MD [address] [place] [address], [address] [place] [address] Ophthalmology 06/07/19 Subhash Bui MD [address] [place] [address] [address] [address] Pulmonary Disease 06/07/19 Additional Source Comments The information contained in this document represents components of the legal health record. It is not the complete legal health record.[facility]
[2025-03-05 08:22] LABS: HBS Num1 1.71 mIU/mL (0-7.99); HBc Num1 0.05 S/CO (0.00-0.79); HBsAGNum1 0.36 S/CO (0.00-0.99); Hepatitis B Surface Antigen Negative (Negative); ~HepC Num1 0.15 S/CO (0.00-0.79); ~Hepatitis B Surface Antibody NONREACTIVE (Nonreactive); ~Hepatitis C Antibody Nonreactive (Nonreactive)
--- OUTSIDE RECORDS SUMMARY | 2025-03-21 20:00 | XMS_ITS | Clinical Summary ---
Author Organization Unknown Care Team Providers Care Transfusion Nurse Name Role Phone YOAN CANO, BRAD Unavailable Unavaila jennifer MAY RN, EDMUNDO Unavailable Unavailable BRANDIN MARINN, FREDERIC Unavailable Unavailabl e [place], JUANA Unavailable Unavailable [facility]AD[facility], DARÍO Unavailable Unav ailable SARA PT, ERNESTO Unavailable Unavailable [employer] LE[employer] SHOP OPERATOR, [facility] Unavailable Unavailable Payers Payer Name Policy Type Policy Number Effective Date Expira tion Date BCBSMA.[id number].C.[id number] Problems Condition Name Condition Details Condition Category Status Onset Date Resolution Date Last Treatment Date Treating Clinician Comments TYPE 2 DIABETES MELLITUS WITH HYPERGLYCEMI A Active 02-05 00:00: 00 URINARY TRACT INFECTION, SITE NOT SPECIFIED Active 02-05 00:00: 00 NAUSEA WITH VOMITING, UNSPECIFIED Active 02-05 00:00: 00 ESSENTIAL (PRIMARY) HYPERTENSION Active 07-26 00:00: 00 DEPRESSION, UNSPECIFIED Active 07-26 00:00: 00 Oth intvrt disc degen, lum rgn w/o lum bck or lw extrm pain Active 07-26 00:00: 00 PRIMARY OSTEOARTHRIT IS, UNSPECIFIED HAND Active 07-26 00:00: 00 HEMIPLGA FOLLOWING CEREBRAL INFRC AFFECTING LEFT NONDOM SIDE Active 07-26 00:00: 00 AGE-RELATED OSTEOPOROSIS W/O CURRENT PATHOLOGICAL FRACTURE Active 07-26 00:00: 00 OTHER HYPERLIPIDEM IA Active 07-26 00:00: 00 UNSPECIFIED GLAUCOMA Active 07-26 00:00: 00 TYPE 2 DIABETES MELLITUS WITH DIABETIC CATARACT Active 07-26 00:00: 00 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 ELETS Active 07-26 00:00: 00 JAIL (CURRENT) USE OF SYSTEMIC STEROIDS Active 07-26 00:00: 00 HISTORY OF FALLING Active 07-26 00:00: 00 PERSONAL HISTORY OF NICOTINE DEPENDENCE Active 07-26 00:00: 00 JAIL (CURRENT) USE OF INSULIN Active 02-05 00:00: 00 JAIL (CURRENT) USE OF ORAL HYPOGLYCEMIC DRUGS Active 02-05 00:00: 00 ENCOUNTER FOR THERAPEUTIC DRUG LEVEL MONITORING Active 07-26 00:00: 00 Allergies, Adverse Reactions, Alerts Allergy Name Allergy Type Status Severity Reaction(s) Onset Date Inactive Date Treating Clinician Comments ASPIRIN Propensity to adverse reactions Active 01-22 15:04: 10 GABAPENTIN Propensity to adverse reactions Active 01-22 15:04: 19 Medications Ordered Medication Name Filled Medication Name Start Date Stop Date Current Medication? Ordering Clinician Indication Dosage Frequency Signature (SIG) Comments Components dorzolamide 22.3 mg-timolol 6.8 mg/mL eye drops 01-12 00:00: 00 Yes [id number] GLAUCOMA 1 drops DAILY 1 drops DAILY (route: ophthalmic (eye)) Med Classific ation: Ophthalmi c Agents Restasis 0.05 % eye drops in a dropperette 01-09 00:00: 00 01-22 00:00 :00 No [id number] Per instruc tions Per instructio ns (route: ophthalmic (eye)) Med Classific ation: Ophthalmi c Agents prednisone 20 mg tablet 01-04 00:00: 00 02-15 23:59 :00 No [id number] INFLAMMATIO N 1 tablet THREE TIMES A DAY 1 tablet THREE TIMES A DAY (route: oral) Med Classific ation: Endocrine calcium 600 mg (as carbonate)- vitamin D3 10 mcg (400 unit) tablet 01-02 00:00: 00 Yes [id number] SUPPLEMENT 1 tablet TWICE A DAY 1 tablet TWICE A DAY (route: oral) Med Classific ation: Electroly te Balance-N utritiona l Products meclizine 12.5 mg tablet 01-01 00:00: 00 Yes [id number] DIZZINESS 1 tablet 2 TIMES DAILY NEEDED 1 tablet 2 TIMES DAILY NEEDED (route: oral) Med Classific ation: Gastroint estinal Therapy Agents brimonidine 0.2 % eye drops 12-30 00:00: 00 01-22 00:00 :00 No [id number] Per instruc tions 3 TIMES A DAY Per instructio ns 3 TIMES A DAY (route: ophthalmic (eye)) Med Classific ation: Ophthalmi c Agents acetazolami de 250 mg tablet 12-28 00:00: 00 01-22 00:00 :00 No [id number] Per instruc tions TWICE A DAY Per instructio ns TWICE A DAY (route: oral) Med Classific ation: Cardiovas cular Therapy Agents sulfamethox azole 800 mg-trimetho prim 160 mg tablet 12-25 00:00: 00 01-22 00:00 :00 No [id number] Per instruc tions TWICE A DAY FOR 10 DAYS Per instructio ns TWICE A DAY FOR 10 DAYS (route: oral) Med Classific ation: Anti-Infe ctive Agents amlodipine 10 mg tablet 01-22 00:00: 00 02-15 23:59 :00 No [id number] HEART 1 tablet DAILY 1 tablet DAILY (route: oral) Med Classific ation: Cardiovas cular Therapy Agents atorvastati n 40 mg tablet 01-22 00:00: 00 Yes [id number] CHOLESTEROL 1 tablet DAILY 1 tablet DAILY (route: oral) Med Classific ation: Cardiovas cular Therapy Agents clopidogrel 75 mg tablet 01-22 00:00: 00 Yes [id number] ANTIPLATELE T 1 tablet DAILY 1 tablet DAILY (route: oral) Med Classific ation: Hematolog ical Agents Flonase Allergy Relief 50 mcg/actuati on nasal spray,suspe nsion 01-22 00:00: 00 Yes [id number] NOSE 2 spray DAILY 2 spray DAILY (route: nasal) Med Classific ation: Respirato ry Therapy Agents metoprolol tartrate 50 mg tablet 01-22 00:00: 00 Yes [id number] HEART 1 tablet DAILY 1 tablet DAILY (route: oral) Med Classific ation: Cardiovas cular Therapy Agents mirtazapine 15 mg tablet 01-22 00:00: 00 02-23 23:59 :00 No [id number] SLEEP 1 tablet BEDTIME 1 tablet BEDTIME (route: oral) Med Classific ation: Central Nervous System Agents pantoprazol e 20 mg tablet,jean yed release 01-22 00:00: 00 02-23 23:59 :00 No [id number] REFLUX 1 tablet 2 TIMES DAILY 1 tablet 2 TIMES DAILY (route: oral) Med Classific ation: Gastroint estinal Therapy Agents cephalexin 500 mg capsule 01-21 00:00: 00 01-28 23:59 :00 No [id number] UTI 1 capsule 4 TIMES DAILY 1 capsule 4 TIMES DAILY (route: oral) Med Classific ation: Anti-Infe ctive Agents metformin 500 mg tablet 01-21 00:00: 00 Yes [id number] DM 1 tablet 2 TIMES DAILY 1 tablet 2 TIMES DAILY (route: oral) Med Classific ation: Endocrine Admelog SoloStar U-100 Insulin lispro 100 unit/mL subcutaneou s pen 02-15 00:00: 00 02-21 23:59 :00 No [id number] BLOOD SUGAR 200-249 3 unit BEFORE MEALS 3 unit BEFORE MEALS ([facility] Med Classific ation: Endocrine Admelog SoloStar U-100 Insulin lispro 100 unit/mL subcutaneou s pen 02-15 00:00: 00 02-21 23:59 :00 No [id number] BLOOD SUGAR 250-299 5 unit BEFORE MEALS 5 unit BEFORE MEALS ([facility] Med Classific ation: Endocrine Admelog SoloStar U-100 Insulin lispro 100 unit/mL subcutaneou s pen 7-24 00:00: 00 02-21 23:59 :00 No [id number] BLOOD SUGAR 300-349 7 unit BEFORE MEALS 7 unit BEFORE MEALS ([facility] Med Classific ation: Endocrine Admelog SoloStar U-100 [facility] 00:00: 00 02-21 23:59 :00 No [id number] DIABETES 9 unit BEFORE MEALS 9 unit BEFORE MEALS (route: [facility]) Med Classific ation: Endocrine Admelog SoloStar U-100 Insulin lispro 100 unit/mL [facility] pen 02-15 00:00: 00 02-21 23:59 :00 No [id number] BLOOD SUGAR 400-449 11 unit BEFORE MEALS 11 unit BEFORE MEALS (route: [facility]) Med Classific ation: Endocrine amlodipine 5 mg tablet 02-15 00:00: 00 Yes [id number] HIGH BLOOD PRESSURE 1 tablet DAILY 1 tablet DAILY (route: oral) Med Classific ation: Cardiovas cular Therapy Agents Lantus Solostar U-100 Insulin 100 unit/mL (3 mL) banner s pen 02-15 00:00: 00 02-21 23:59 :00 No [id number] DIABETES 12 unit BEDTIME 12 unit BEDTIME (route: [facility]) Med Classific ation: Endocrine metformin 500 mg tablet 02-21 00:00: 00 02-23 23:59 :00 No [id number] diabetes 1 tablet DAILY 1 tablet DAILY (route: oral) Med Classific ation: Endocrine metformin 500 mg tablet 02-24 00:00: 00 02-26 23:59 :00 No [id number] diabetes 1 tablet 2 TIMES DAILY 1 tablet 2 TIMES DAILY (route: oral) Med Classific ation: Endocrine metformin 500 mg tablet 02-27 00:00: 00 03-01 23:59 :00 No [id number] diabetes Per instruc tions 2 TIMES DAILY Per instructio ns 2 TIMES DAILY (route: oral) Med Classific ation: Endocrine metformin 500 mg tablet 03-02 00:00: 00 Yes [id number] diabetes 2 tablet 2 TIMES DAILY 2 tablet 2 TIMES DAILY (route: oral) Med Classific ation: Endocrine omeprazole 20 mg capsule,del ayed release 02-23 00:00: 00 Yes [id number] GERD 1 capsule 2 TIMES DAILY 1 capsule 2 TIMES DAILY (route: oral) Med Classific ation: Gastroint estinal Therapy Agents Vital Signs Vital Name Observation Time Observation Value Commen ts Temperature 2025-02-27 09:45:00.000 98.2 [degF] Temperature 2025-02-23 13:54:00.000 97 [degF] Temperature 2025-02-23 10:08:00.000 98.1 [degF] Temperature 2025-02-21 15:41:00.000 98.6 [degF] Temperature 2025-02-20 10:29:00.000 97.2 [degF] Temperature 2025-02-16 15:30:00.000 97.7 [degF] Temperature 2025-02-15 13:28:00.000 97.7 [degF] Temperature 2025-01-25 14:04:00.000 97.3 [degF] Temperature 2025-01-22 14:38:00.000 97.3 [degF] BMI (%) 2025-02-15 12:13:41.000 33 kg/m2 BMI (%) 2025-01-22 14:18:56.000 33 kg/m2 Height 2025-02-15 12:13:34.000 66 [in_us] Height 2025-01-22 14:18:43.000 66 [in_us] Pulse 2025-02-27 09:45:00.000 74 /min Pulse 2025-02-23 13:54:00.000 79 /min Pulse 2025-02-23 10:08:00.000 74 /min Pulse 2025-02-21 15:41:00.000 77 /min Pulse 2025-02-20 10:29:00.000 74 /min Pulse 2025-02-16 15:30:00.000 60 /min Pulse 2025-02-15 13:28:00.000 74 /min Pulse 2025-01-25 14:04:00.000 95 /min Pulse 2025-01-22 14:38:00.000 75 /min O2 Saturation (%) 2025-02-23 13:54:00.000 95 % O2 Saturation (%) 2025-02-23 10:09:00.000 96 % O2 Saturation (%) 2025-02-21 15:41:00.000 96 % O2 Saturation (%) 2025-02-20 10:29:00.000 96 % O2 Saturation (%) 2025-02-16 15:30:00.000 96 % O2 Saturation (%) 2025-02-15 13:28:00.000 95 % O2 Saturation (%) 2025-01-25 14:04:00.000 98 % O2 Saturation (%) 2025-01-22 14:38:00.000 94 % Respirations 2025-02-27 09:45:00.000 18 /min Respirations 2025-02-23 13:54:00.000 18 /min Respirations 2025-02-23 10:08:00.000 18 /min Respirations 2025-02-21 15:41:00.000 16 /min Respirations 2025-02-20 10:29:00.000 18 /min Respirations 2025-02-16 15:30:00.000 18 /min Respirations 2025-02-15 13:28:00.000 18 /min Respirations 2025-01-25 14:04:00.000 18 /min Respirations 2025-01-22 14:38:00.000 18 /min Weight (lbs) 2025-02-15 12:13:41.000 205 [lb_av] Weight (lbs) 2025-01-22 14:18:56.000 205 [lb_av] Systolic Blood Pressure 2025-02-27 09:45:00.000 124 mm [Hg] Systolic Blood Pressure 2025-02-23 13:54:00.000 148 mm [Hg] Systolic Blood Pressure 2025-02-23 10:08:00.000 134 mm [Hg] Systolic Blood Pressure 2025-02-21 15:41:00.000 120 mm [Hg] Systolic Blood Pressure 2025-02-20 10:29:00.000 158 mm [Hg] Systolic Blood Pressure 2025-02-16 15:30:00.000 130 mm [Hg] Systolic Blood Pressure 2025-02-15 13:28:00.000 158 mm [Hg] Systolic Blood Pressure 2025-01-25 14:04:00.000 140 mm [Hg] Systolic Blood Pressure 2025-01-22 14:38:00.000 122 mm [Hg] Diastolic Blood Pressure 2025-02-27 09:45:00.000 70 mm [Hg] Diastolic Blood Pressure 2025-02-23 13:54:00.000 70 mm [Hg] Diastolic Blood Pressure 2025-02-23 10:08:00.000 68 mm [Hg] Diastolic Blood Pressure 2025-02-21 15:41:00.000 60 mm [Hg] Diastolic Blood Pressure 2025-02-20 10:29:00.000 86 mm [Hg] Diastolic Blood Pressure 2025-02-16 15:30:00.000 60 mm [Hg] Diastolic Blood Pressure 2025-02-15 13:28:00.000 80 mm [Hg] Diastolic Blood Pressure 2025-01-25 14:04:00.000 85 mm [Hg] Diastolic Blood Pressure 2025-01-22 14:38:00.000 54 mm [Hg] Plan of Treatment Planned Activity Planned Date Details Comments Future Scheduled Test PHYSICAL T HERAPIST TO EVALUATE FOR HOME EXERCISE PROGRAM [code = PHYSICAL THERAPIST TO EVALUATE FOR HOME EXERCISE PROGRAM ] Future Scheduled Test OCCUPATION AL THERAPIST TO EVALUATE FOR ADLS [code = OCCUPATIONAL THERAPIST TO EVALUATE FOR ADLS ] Future Scheduled Test FALL REDUC TION MANAGEMENT; RN TO ASSESS AND OBSERVE, MACHINE SHOP SPECIALIST/DICER MACHINE OPERATOR TO OBSERVE FALL RISK FACTORS AND EDUCATE PATIENT/CAREGIVER ON STRATEGIES TO MINIMIZE THE RISK OF FALLING. [code = FALL REDUCTION MANAGEMENT; RN TO ASSESS AND OBSERVE, MACHINE SHOP SPECIALIST/DICER MACHINE OPERATOR TO OBSERVE FALL RISK FACTORS AND EDUCATE PATIENT/CAREGIVER ON STRATEGIES TO MINIMIZE THE RISK OF FALLING.] Future Scheduled Test GENITOURIN BRYON MANAGEMENT; RN TO ASSESS AND TEACH, MACHINE SHOP SPECIALIST/DICER MACHINE OPERATOR TO OBSERVE AND TEACH RELATED TO ALTERED GENITOURINARY STATUS TO MINIMIZE COMPLICATIONS AND REDUCE HOSPITALIZATION. [code = GENITOURINARY MANAGEMENT; RN TO ASSESS AND TEACH, MACHINE SHOP SPECIALIST/DICER MACHINE OPERATOR TO OBSERVE AND TEACH RELATED TO ALTERED GENITOURINARY STATUS TO MINIMIZE COMPLICATIONS AND REDUCE HOSPITALIZATION.] Future Scheduled Test URINARY TR ACT INFECTION MANAGEMENT; RN/DICER MACHINE OPERATOR/MACHINE SHOP SPECIALIST TO PROVIDE SKILLED TEACHING AND SELF- CARE MANAGEMENT RELATED TO UTI TO MINIMIZE COMPLICATIONS AND REDUCE THE RISK OF HOSPITALIZATION. [code = URINARY TRACT INFECTION MANAGEMENT; RN/DICER MACHINE OPERATOR/MACHINE SHOP SPECIALIST TO PROVIDE SKILLED TEACHING AND SELF- CARE MANAGEMENT RELATED TO UTI TO MINIMIZE COMPLICATIONS AND REDUCE THE RISK OF HOSPITALIZATION.] Future Scheduled Test DIABETES M ANAGEMENT; RN TO ASSESS AND TEACH, DICER MACHINE OPERATOR/MACHINE SHOP SPECIALIST TO OBSERVE AND TEACH INSTRUCTIONS OF DIABETIC CARE TO INCLUDE: DIET DIABETIC, SKIN CARE, SIGNS AND SYMPTOMS OF HYPO/HYPERGLYCEMIA, PROPER ADMINISTRATION OF DIABETIC MEDICATION. RN/DICER MACHINE OPERATOR/MACHINE SHOP SPECIALIST TO INSTRUCT ON DIABETIC FOOT CARE AND MONITOR FOR SKIN LESIONS ON LOWER EXTREMITIES. RN TO ASSESS AND TEACH, DICER MACHINE OPERATOR/MACHINE SHOP SPECIALIST TO OBSERVE AND TEACH PATIENT/CAREGIVER ABILITY TO PERFORM AND RECORD BLOOD GLUCOSE TESTING ORDERED AND TO REPORT ABNORMAL FINDINGS TO PHYSICIAN. RN/DICER MACHINE OPERATOR/MACHINE SHOP SPECIALIST MAY PERFORM BLOOD GLUCOSE TEST NEEDED. RN/DICER MACHINE OPERATOR/MACHINE SHOP SPECIALIST TO REPORT TO PHYSICIAN BLOOD GLUCOSE READINGS GREATER THAN 350 OR LESS THAN 70 RN/DICER MACHINE OPERATOR/MACHINE SHOP SPECIALIST TO INSTRUCT PATIENT ON IMPORTANCE OF HGBA1C MONITORING, KIDNEY FUNCTION TEST, EYE AND FOOT EXAMS. [code = DIABETES MANAGEMENT; RN TO ASSESS AND TEACH, DICER MACHINE OPERATOR/MACHINE SHOP SPECIALIST TO OBSERVE AND TEACH INSTRUCTIONS OF DIABETIC CARE TO INCLUDE: DIET DIABETIC, SKIN CARE, SIGNS AND SYMPTOMS OF HYPO/HYPERGLYCEMIA, PROPER ADMINISTRATION OF DIABETIC MEDICATION. RN/DICER MACHINE OPERATOR/MACHINE SHOP SPECIALIST TO INSTRUCT ON DIABETIC FOOT CARE AND MONITOR FOR SKIN LESIONS ON LOWER EXTREMITIES. RN TO ASSESS AND TEACH, DICER MACHINE OPERATOR/MACHINE SHOP SPECIALIST TO OBSERVE AND TEACH PATIENT/CAREGIVER ABILITY TO PERFORM AND RECORD BLOOD GLUCOSE TESTING ORDERED AND TO REPORT ABNORMAL FINDINGS TO PHYSICIAN. RN/DICER MACHINE OPERATOR/MACHINE SHOP SPECIALIST MAY PERFORM BLOOD GLUCOSE TEST NEEDED. RN/DICER MACHINE OPERATOR/MACHINE SHOP SPECIALIST TO REPORT TO PHYSICIAN BLOOD GLUCOSE READINGS GREATER THAN 350 OR LESS THAN 70 RN/DICER MACHINE OPERATOR/MACHINE SHOP SPECIALIST TO INSTRUCT PATIENT ON IMPORTANCE OF HGBA1C MONITORING, KIDNEY FUNCTION TEST, EYE AND FOOT EXAMS.] Future Scheduled Test RN TO OBSE RVE, ASSESS, EVALUATE, AND DEVELOP AN INDIVIDUALIZED PLAN OF CARE. AGENCY MAY ACCEPT ORDERS FROM CONSULTING PHYSICIANS RN TO OBSERVE AND ASSESS, MACHINE SHOP SPECIALIST/DICER MACHINE OPERATOR TO OBSERVE FOR RISK FOR FALLS AND INSTRUCT IN FALL PREVENTION, HOME SAFETY, MEDICATION MANAGEMENT, INFECTION PREVENTION, AND NUTRITION MANAGEMENT. RN/MACHINE SHOP SPECIALIST/DICER MACHINE OPERATOR NURSE MAY PERFORM O2 SATURATION LEVEL ON ADMISSION AND PRN FOR RN TO ASSESS/MACHINE SHOP SPECIALIST TO OBSERVE PATIENT, WITH NOTIFICATION TO THE PHYSICIAN IF SATURATION IS 90% IN THE ABSENCE OF MORE SPECIFIC PARAMETERS FROM THE PHYSICIAN. AGENCY MAY PERFORM A RESUMPTION OF CARE VISIT FOLLOWING ANY HOSPITAL ADMISSION. RN/MACHINE SHOP SPECIALIST/DICER MACHINE OPERATOR TO MONITOR CO-MORBID CONDITIONS LISTED ON THE PLAN OF CARE AND ANY NEW CONDITIONS THAT PRESENT THEMSELVES DURING THIS EPISODE TO IDENTIFY CHANGES AND INTERVENE TO MINIMIZE COMPLICATIONS. [code = RN TO OBSERVE, ASSESS, EVALUATE, AND DEVELOP AN INDIVIDUALIZED PLAN OF CARE. AGENCY MAY ACCEPT ORDERS FROM CONSULTING PHYSICIANS RN TO OBSERVE AND ASSESS, MACHINE SHOP SPECIALIST/DICER MACHINE OPERATOR TO OBSERVE FOR RISK FOR FALLS AND INSTRUCT IN FALL PREVENTION, HOME SAFETY, MEDICATION MANAGEMENT, INFECTION PREVENTION, AND NUTRITION MANAGEMENT. RN/MACHINE SHOP SPECIALIST/DICER MACHINE OPERATOR NURSE MAY PERFORM O2 SATURATION LEVEL ON ADMISSION AND PRN FOR RN TO ASSESS/MACHINE SHOP SPECIALIST TO OBSERVE PATIENT, WITH NOTIFICATION TO THE PHYSICIAN IF SATURATION IS 90% IN THE ABSENCE OF MORE SPECIFIC PARAMETERS FROM THE PHYSICIAN. AGENCY MAY PERFORM A RESUMPTION OF CARE VISIT FOLLOWING ANY HOSPITAL ADMISSION. RN/MACHINE SHOP SPECIALIST/DICER MACHINE OPERATOR TO MONITOR CO-MORBID CONDITIONS LISTED ON THE PLAN OF CARE AND ANY NEW CONDITIONS THAT PRESENT THEMSELVES DURING THIS EPISODE TO IDENTIFY CHANGES AND INTERVENE TO MINIMIZE COMPLICATIONS.] Future Scheduled Test PAIN MANAG EMENT; RN TO ASSESS AND TEACH, DICER MACHINE OPERATOR/MACHINE SHOP SPECIALIST TO OBSERVE AND TEACH AND PROVIDE EDUCATION ON PAIN MANAGEMENT TECHNIQUES. [code = PAIN MANAGEMENT; RN TO ASSESS AND TEACH, DICER MACHINE OPERATOR/MACHINE SHOP SPECIALIST TO OBSERVE AND TEACH AND PROVIDE EDUCATION ON PAIN MANAGEMENT TECHNIQUES.] Future Scheduled Test RISK FOR H OSPITALIZATION; RN TO ASSESS/TEACH, DICER MACHINE OPERATOR/MACHINE SHOP SPECIALIST TO OBSERVE/TEACH PATIENT/CAREGIVER ON RISK FOR HOSPITALIZATION/EMERGENCY ROOM VISITS, TEACH SIGNS AND SYMPTOMS THAT PUT PATIENT AT RISK, WHEN TO NOTIFY NURSE/PHYSICIAN OF COMPLICATIONS/DECLINE, AND WHEN TO CALL 911. [code = RISK FOR HOSPITALIZATION; RN TO ASSESS/TEACH, DICER MACHINE OPERATOR/MACHINE SHOP SPECIALIST TO OBSERVE/TEACH PATIENT/CAREGIVER ON RISK FOR HOSPITALIZATION/EMERGENCY ROOM VISITS, TEACH SIGNS AND SYMPTOMS THAT PUT PATIENT AT RISK, WHEN TO NOTIFY NURSE/PHYSICIAN OF COMPLICATIONS/DECLINE, AND WHEN TO CALL 911.] Future Scheduled Test CARDIOVASC ULAR SYSTEM; RN TO ASSESS/TEACH, MACHINE SHOP SPECIALIST/DICER MACHINE OPERATOR TO OBSERVE/TEACH RELATED TO ALTERED CARDIOVASCULAR STATUS TO MINIMIZE COMPLICATIONS AND REDUCE HOSPITALIZATION. [code = CARDIOVASCULAR SYSTEM; RN TO ASSESS/TEACH, MACHINE SHOP SPECIALIST/DICER MACHINE OPERATOR TO OBSERVE/TEACH RELATED TO ALTERED CARDIOVASCULAR STATUS TO MINIMIZE COMPLICATIONS AND REDUCE HOSPITALIZATION.] Future Scheduled Test URINARY MO LECULAR TESTING PROTOCOL UP TO 2 PRN RN/MACHINE SHOP SPECIALIST/DICER MACHINE OPERATOR VISITS MAY BE PERFORMED FOR S/S OF UTI. RN TO ASSESS, MACHINE SHOP SPECIALIST/DICER MACHINE OPERATOR TO OBSERVE INITIATION OF UTI PROTOCOL. RN/DICER MACHINE OPERATOR/MACHINE SHOP SPECIALIST TO INSTRUCT PATIENT AND/OR CAREGIVER ON S/S OF UTI TO REPORT TO RN/DICER MACHINE OPERATOR/MACHINE SHOP SPECIALIST IF NEW OR WORSENING SYMPTOMS. DRINK PLENTY OF WATER THROUGHOUT THE DAY TO MAINTAIN HYDRATION (UNLESS CONTRAINDICATED.) URINATE WHEN THE URGE IS FELT, DO NOT WAIT. WASH GENITALS DAILY. WIPE FROM FRONT TO BACK AFTER HAVING A BOWEL MOVEMENT. RN/DICER MACHINE OPERATOR/MACHINE SHOP SPECIALIST TO OBTAIN MOLECULAR URINE TESTING BY OPTION 1 OR OPTION 2 (OPTION 1) RN/DICER MACHINE OPERATOR/MACHINE SHOP SPECIALIST TO OBTAIN U/A WITH REFLEX TO UTI PANEL (MOLECULAR) VIA CLEAN CATCH URINE AND IF UNABLE TO OBTAIN MAY PERFORM AN IN AND OUT CATH. IF PATIENT HAS INDWELLING CATHETER MAY OBTAIN FROM SAMPLING PORT. (OPTION 2) RN/DICER MACHINE OPERATOR/MACHINE SHOP SPECIALIST TO OBTAIN UTI PANEL (MOLECULAR) VIA SWAB COLLECTION METHOD FROM ADULT BRIEF/DIAPER OR PAD IF PATIENT IS INCONTINENT. NOTIFY PROVIDER OF RESULTS AND OBTAIN FURTHER ORDERS. [code = URINARY MOLECULAR TESTING PROTOCOL UP TO 2 PRN RN/MACHINE SHOP SPECIALIST/DICER MACHINE OPERATOR VISITS MAY BE PERFORMED FOR S/S OF UTI. RN TO ASSESS, MACHINE SHOP SPECIALIST/DICER MACHINE OPERATOR TO OBSERVE INITIATION OF UTI PROTOCOL. RN/DICER MACHINE OPERATOR/MACHINE SHOP SPECIALIST TO INSTRUCT PATIENT AND/OR CAREGIVER ON S/S OF UTI TO REPORT TO RN/DICER MACHINE OPERATOR/MACHINE SHOP SPECIALIST IF NEW OR WORSENING SYMPTOMS. DRINK PLENTY OF WATER THROUGHOUT THE DAY TO MAINTAIN HYDRATION (UNLESS CONTRAINDICATED.) URINATE WHEN THE URGE IS FELT, DO NOT WAIT. WASH GENITALS DAILY. WIPE FROM FRONT TO BACK AFTER HAVING A BOWEL MOVEMENT. RN/DICER MACHINE OPERATOR/MACHINE SHOP SPECIALIST TO OBTAIN MOLECULAR URINE TESTING BY OPTION 1 OR OPTION 2 (OPTION 1) RN/DICER MACHINE OPERATOR/MACHINE SHOP SPECIALIST TO OBTAIN U/A WITH REFLEX TO UTI PANEL (MOLECULAR) VIA CLEAN CATCH URINE AND IF UNABLE TO OBTAIN MAY PERFORM AN IN AND OUT CATH. IF PATIENT HAS INDWELLING CATHETER MAY OBTAIN FROM SAMPLING PORT. (OPTION 2) RN/DICER MACHINE OPERATOR/MACHINE SHOP SPECIALIST TO OBTAIN UTI PANEL (MOLECULAR) VIA SWAB COLLECTION METHOD FROM ADULT BRIEF/DIAPER OR PAD IF PATIENT IS INCONTINENT. NOTIFY PROVIDER OF RESULTS AND OBTAIN FURTHER ORDERS.] Future Scheduled Test MEDICATION MANAGEMENT; RN/MACHINE SHOP SPECIALIST/DICER MACHINE OPERATOR TO REVIEW MEDICATIONS FOR INTERACTIONS, EFFECTIVENESS OF DRUG THERAPY, AND SIGNS/SYMPTOMS OF ADVERSE REACTIONS. MAY INSTRUCT AND REINFORCE MEDICATION TEACHING RELATED TO THE USE OF MEDICATIONS, DOSAGE, FREQUENCY, PURPOSE, SIDE EFFECTS, AND TO REPORT COMPLICATIONS. [code = MEDICATION MANAGEMENT; RN/MACHINE SHOP SPECIALIST/DICER MACHINE OPERATOR TO REVIEW MEDICATIONS FOR INTERACTIONS, EFFECTIVENESS OF DRUG THERAPY, AND SIGNS/SYMPTOMS OF ADVERSE REACTIONS. MAY INSTRUCT AND REINFORCE MEDICATION TEACHING RELATED TO THE USE OF MEDICATIONS, DOSAGE, FREQUENCY, PURPOSE, SIDE EFFECTS, AND TO REPORT COMPLICATIONS.] Goal 2025-02-15 Patient Goal - TO FEEL ANITA R Goal Patient Goal - TO FEEL ANITA R Goal Provider Goal - Goal Provider Goal - Goal Provider Goal - PATIENT/CAREGIVER WILL VERBALIZE/DEMONSTRATE UNDERSTANDING OF FALL RISK FACTORS AND IMPLEMENT STRATEGIES TO MINIMIZE FALL RISK. PATIENT/CAREGIVER WILL VERBALIZE/DEMONSTRATE AN ABILITY TO ADHERE TO FALL REDUCTION SELF-MANAGEMENT AND LIFE-STYLE CHANGES BY EOE Goal Provider Goal - PATIENT / CAREGIVER WILL VERBALIZE/DEMONSTRATE UNDERSTANDING OF MEASURES TO MANAGE ALTERED GENITOURINARY STATUS BY END OF EPISODE. Goal Provider Goal - PATIENT/CAREGIVER WILL VERBALIZE/DEMONSTRATE UNDERSTANDING OF CARE AND MANAGEMENT OF URINARY TRACT INFECTION BY EOE Goal Provider Goal - PATIENT / CAREGIVER WILL VERBALIZE / DEMONSTRATE AN ABILITY TO ADHERE TO SELF-MANAGEMENT OF DIABETES MANAGEMENT BY EOE Goal Provider Goal - A PLAN OF CARE WILL BE ESTABLISHED THAT MEETS THE PATIENTS NEEDS. PATIENT WILL DEMONSTRATE OXYGEN SATURATION WITHIN NORMAL LIMITS OR PATIENTS OPTIMAL LEVEL ESTABLISHED BY THE PHYSICIAN THROUGHOUT CARE. CHANGES TO CO-MORBID CONDITIONS AND ANY NEW CONDITIONS WILL BE IDENTIFIED AND REPORTED TO THE PHYSICIAN. Goal Provider Goal - PATIENT / CAREGIVER WILL VERBALIZE / DEMONSTRATE UNDERSTANDING OF PAIN CONTROL MEASURES BY EOE Goal Provider Goal - PATIENT/CAREGIVER WILL VERBALIZE UNDERSTANDING OF SIGNS AND SYMPTOMS THAT PUT THE PATIENT AT RISK FOR HOSPITALIZATION /EMERGENCY ROOM VISITS, WHEN TO NOTIFY NURSE/PHYSICIAN OF COMPLICATIONS/DECLINE AND WHEN TO CALL 911. Goal Provider Goal - PATIENT / CAREGIVER WILL VERBALIZE/DEMONSTRATE UNDERSTANDING OF MEASURES TO MANAGE ALTERED CARDIOVASCULAR STATUS BY EOE Goal Provider Goal - PATIENT WILL DEMONSTRATE IMPROVEMENT IN S/S OF UTI TO AVOID HOSPITALIZATION. Goal Provider Goal - PATIENT/CAREGIVER TO VERBALIZE, AND CONSISTENTLY DEMONSTRATE EFFECTIVE, SAFE MANAGEMENT OF MEDICATION INCLUDING KNOWLEDGE OF EFFECTIVENESS, POTENTIAL SIDE EFFECTS AND DRUG REACTIONS AND WHEN TO CONTACT THE APPROPRIATE CARE PROVIDER. PATIENT/CAREGIVER WILL BE ABLE TO VERBALIZE UNDERSTANDING OF MEDICATION REGIMEN AND ACCURATELY TAKE MEDICATIONS PRESCRIBED WITHOUT ADVERSE EFFECTS BY EOE Encounters Start Date/Time End Date/Time Encounter Type Admission Type Attending Clinicians Care Facility Care Department Encounter ID Discharge Date Discharge Status Discharge Condition Discharge Reason Percent Goals Met 2025-01-22 00:00:00 2025-03-22 00:00:00 Outpatient NEW ADMISSION [facility] [id number]
== END 2025-03-02 13:06 | disposition home or self-care (01) ==
LOC: HO.HMGCX 13:05
PROVIDERS: PCP Internal Medicine; Visit Provider Internal Medicine Rheumatology
DX: M79.671 Pain in right foot (principal); M79.672 Pain in left foot; H20.00 Unspecified acute and subacute iridocyclitis; M79.641 Pain in right hand; M79.642 Pain in left hand; Z11.59 Encounter for screening for other viral diseases
CPT/HCPCS: 36415; 73130; 73630; 86704; 86706; 86803; 87340

== ENCOUNTER → 2025-03-02 13:20 | Outpatient (BNV) | payer MEDICARE, SELFPAY | PROVIDERS: PCP Internal Medicine; Visit Provider Radiology Diagnostic Radiology | DX: M15.4 Erosive (osteo)arthritis (principal); M85.871 Other specified disorders of bone density and structure, right ankle and foot | CPT/HCPCS: 73130; 73630 ==

== ENCOUNTER 2025-04-05 10:41 | Outpatient (REF) | payer MEDICARE, SELFPAY ==
--- OUTSIDE RECORDS SUMMARY | 2025-04-05 15:57 | XMS_ITS | Encounter Summary ---
Author Organization [facility] Address [address] [place] [address] Care Team Providers Care Petrography Teacher Name Role Phone Kristy Cedillo MD Primary Care Provider [phone] Reason for Visit * Reason Onset Date Comments VNA 03/19/2025 Encounter Details Date Type Department Care Team (Late st Contact Info) Description 03/19/2025 Telephone Internal Medicine - [place] [address] [place], [place] [phone] Kristy Cedillo MD [address] [place], [place] Social History Tobacco Use Types Packs/Day Years [...] for your loved ones. For example, child care coordinator or elderly care for an older adult? [...] as of this encounter Progress Notes * Candelario Marsh MD - 03/19/2025 7:33 PM EDT Noted. * Wendi Sofia LPN - 03/19/2025 11:13 AM EDT Verbal orders given for SN recertification. VNA nurse Kenyatta also stated they are sending a urine out for pt because she is c/o burning on urination. Kenyatta states they have standing orders to do this. * Anna Hernandez - 03/19/2025 10:55 AM EDT VNA CALL Which VNA office is calling? [facility] Full name of caller: Kenyatta The caller is A nurse Is the caller at the patients home?: yes Reason for call: Patient getting recertified for home care-Needing verbal orders Also-patient has burning with urination. Started last night. Will leave a cup with patient in case you give orders for a UA Does caller need an urgent call back? no Was CONTACT Telephone # obtained above?: yes documented in this encounter Plan of Treatment Upcoming Encounters Date Type Department Care Team (Late st Contact Info) Description 04/17/2025 11:15 AM EDT Office Visit Internal Medicine - [facility] [address] [place], [place] [phone] Linette Regan, TORRI [address] [place] [address] 04/20/2025 1:30 PM EDT Medication Management Adult Medicine - [place] [address] [place] [address] Mary Becker, PharmD [address] [place] [address] 05/22/2025 10:40 AM EDT Office Visit Neurology - [place] [address] [place] [phone] Eddy Langley MD [address] [facility] [address] [place] [address] 06/15/2025 10:40 AM EST Office Visit Gastroenterology - [place] [address] [facility] [address] [place] [address] Marlen Castro NP 175 [facility] [address] [place] [address] 07/10/2025 9:00 AM EST Procedure visit Urogynecology - [place] [address] [place] [phone] Kamilah Mcconnell MD 580 [facility] 205 [place] [address] 07/30/2025 12:00 PM EST Office Visit Internal Medicine - [address] [phone] Kristy Cedillo MD [address] [place] [address] documented as of this encounter Goals Goal [...] on filedocumented in this encounter Care Teams Petrography Teacher Relationship Specialty Start Date End Date Kristy Cedillo MD [address] [place] [address] PCP - General Internal Medicine 03/02/25 documented as of this encounter
--- OUTSIDE RECORDS SUMMARY | 2025-04-05 15:57 | XMS_ITS | Clinical Summary ---
Author Organization [facility] Address [address] [facility] [address] [place] [address] Phone Care Team Providers Care Tank Farm Attendant Name Role Phone Candelario Masrh MD Primary Care Provider [phone] Francisco White MD Unavailable [phone] Subhash Bui MD Unavailable + Allergies [...] Done Comments DEPRESSION SCREENING 1951 OSTEOPOROSIS SCREENING INITIAL (ONE-TIME) 11/27/2004 ZOSTER VACCINES (2 of 3) 11/13/2012 09/18/2012 RSV VACCINE (1 - 1-dose 75+ series) 11/27/2014 Adult Td,Tdap Booster 09/14/2022 09/14/2012, 012 INFLUENZA VACCINE (#1) 2025 , 04/14/2019, 04/28/2018, Additional history exists COVID-19 VACCINE (2024- season) 2025 09/28/2020, 09/07/2020, 08/31/2020 PNEUMOCOCCAL VACCINES (50+ years) [...] topic Medical Devices Not on file Insurance [employer] [employer] MEDICARE HMO BLUE REPLACEMENT [id number] MEDICARE O BLUE REPLACEMENT [address] [place] [address] MEDICARE HMO BLUE REPLACEMENT Care Teams Tank Farm Attendant Relationship Specialty Start Date End Date Candelario Marsh MD [address] [place] [address] PCP - General Internal Medicine 05/04/19 Francisco White MD [address] [place] [address], [address] [place] [address] [email or web address] Ophthalmology 06/07/19 Subhash Bui MD [address] [place] [address] [address] [phone] Pulmonary Disease 06/07/19 Additional Source Comments The information contained in this document represents components of the legal health record. It is not the complete legal health record.[facility]
--- OUTSIDE RECORDS SUMMARY | 2025-04-05 15:57 | XMS_ITS | Encounter Summary ---
Author Organization [facility] [place] [address] Care Team Providers Care Muck Boss Name Role Phone Kristy Cedillo MD Primary Care Provider [phone] Encounter Details Date Type Department Care Team (Late st Contact Info) Description 03/29/2025 Referral Triage [place] [facility] [address] [place] [address] Tamiko Workman Social History Tobacco Use Types Packs/Day Years [...] care for your loved ones. For example, children's ministry director or elderly care for an older adult? [...] PM EDT documented as of this encounter Plan of Treatment Upcoming Encounters Date Type Department Care Team (Late st Contact Info) Description 04/17/2025 11:15 AM EDT Office Visit Internal Medicine - [address] [phone] Linette Regan, TORRI [address] [place] [address] 04/20/2025 1:30 PM EDT Medication Management Adult Medicine - [address] [phone] Mary Becker, PharmD [address] [place] [address] 05/22/2025 10:40 AM EDT Office Visit Neurology - [address] [place] [phone] Eddy Langley MD [address] [address] 06/15/2025 10:40 AM EST Office Visit Gastroenterology - [place] [address] [place] [address] [place] [phone] Marlen Castro, TORRI 175 [facility] 200 [place] [address] 07/10/2025 9:00 AM EST Procedure visit Urogynecology - [place] [address] [place], [place] [phone] Kamilah Mcconnell MD [address] [facility] 205 [place] [address] 07/30/2025 12:00 PM EST Office Visit Internal Medicine - [facility] [address] [place], [place] [phone] Kristy Cedillo MD [address] [place], [place] documented as of this encounter Goals Goal Patient Goal Type Associated Problems Recent Progress Patient-Stated? Author Adherence to Treatment Plan General Merly Rodriguez RN Note: Pt will take her BG reading before all meals Pt will carry glucose gel or tablets with her at all times and keep at the bedside as well documented as of this encounter Visit Diagnoses Not on filedocumented in this encounter Care Teams Muck Boss Relationship Specialty Start Date End Date Kristy Cedillo MD [address] [facility] [place] [address] PCP - General Internal Medicine 03/02/25 documented as of this encounter
--- OUTSIDE RECORDS SUMMARY | 2025-04-05 15:57 | XMS_ITS ---
Author Organization [address] [place] [address] [place] [phone] Phone Care Team Providers Care Programmer Numerical Control Name Role Phone Kristy Cedillo MD Primary Care Provider [phone] Chronic Care Management Status:Ongoing (Active) Start date:02/13/2025 Enrollment date:02/16/2025 Enrollment reason:Referred by Care Team Case Team Name Relationship Phone Merly Estrada RN Care Manager(Responsible Staff) Continued Care and Services Coordination
--- OUTSIDE RECORDS SUMMARY | 2025-04-05 15:57 | XMS_ITS | Clinical Summary ---
Author Organization [address] [place] [address] [place] [phone] Phone Care Team Providers Care Shingle Catcher Name Role Phone Kristy Cedillo MD Primary Care Provider [phone] Allergies Active Allergy Reactions Criticality Noted Date Comments Aspirin Rash 11/12/2005 Gabapentin Nausea And Vomiting 12/17/2016 Medications cholecalciferol (VITAMIN D-3) 50 mcg (2,000 unit) tablet Take 1 Tablet by mouth daily. 12/03/19 24 Active estradioL (ESTRACE) 0.01 % (0.1 mg/gram) vaginal cream Please use a pea-sized amount on your finger and place in the vagina twice a week at night 02/08/20 24 026 Active mirabegron (MYRBETRIQ) 50 mg tablet extended release 24 hr 24 hr tablet 02/08/20 24 Active VITAMIN C, ASCORBATE CALCIUM, ORAL Take 1 tablet by mouth daily. Active metoprolol succinate (TOPROL-XL) 50 mg 24 hr tablet Take 1 tablet (50 mg total) by mouth 1 (one) time each day. Do not crush or chew. 90 tablet 1 09/01/19 25 Active loratadine (CLARITIN) 10 mg tablet Take 1 tablet (10 mg total) by mouth 1 (one) time each day. 90 tablet 09/07/19 25 Active timolol (TIMOPTIC) 0.5 % ophthalmic solution 10/13/19 25 Active omeprazole (PriLOSEC) [address] capsule TAKE 1 CAPSULE BY MOUTH 2 TIMES DAILY (BEFORE MEALS). 180 capsule 1 11/16/19 25 Active fluticasone propionate (FLONASE) 50 mcg/actuation nasal spray SPRAY 2 SPRAYS INTO EACH NOSTRIL EVERY DAY 48 mL 01/02/20 25 Active cycloSPORINE (RESTASIS) 0.05 % ophthalmic emulsion Administer 1 drop into both eyes 2 (two) times a day. Active dorzolamide-bunny oloL (COSOPT) 22.3-6.8 mg/mL ophthalmic solution Administer 1 drop into the left eye 2 (two) times a day. Active blood-glucose meter kitIndications: Type 2 diabetes mellitus with other specified complication, with long-term current use of insulin ([facility] V24, [facility] V28) Use daily or as directed for monitoring of diabetes. Accucheck Kamryn or whichever is covered by insurance 1 each 01/24/20 25 026 Active lancets lancetsIndicati ons:Type 2 diabetes mellitus with other specified complication, with long-term current use of insulin ([facility] V24, [facility] V28) Check blood sugar 2 times a day Accucheck Kamryn or whichever is covered by insurance 200 each 11 01/24/20 25 026 Active atorvastatin (LIPITOR) 40 mg tablet TAKE 1 TABLET BY MOUTH EVERY DAY 90 tablet 01/30/20 25 Active amLODIPine (NORVASC) 5 mg tablet Take 1 tablet (5 mg total) by mouth 1 (one) time each day. 02/01/20 25 Active clopidogreL (PLAVIX) 75 mg tablet TAKE 1 TABLET BY MOUTH EVERY DAY 90 tablet 02/06/20 25 Active metFORMIN XR (GLUCOPHAGE-XR) 500 mg 24 hr tablet Take 2 tablets (1,000 mg total) by mouth 2 (two) times a day. Do not crush, chew, or split. 360 each 1 02/22/20 25 Active alendronate (FOSAMAX) 70 mg tablet Take 1 tablet (70 mg total) by mouth every 7 (seven) days. Take in the morning with a full glass of water, on an empty stomach, and do not take anything else by mouth or lie down for the next 30 min. 12 tablet 1 03/02/20 25 Active sertraline (ZOLOFT) 25 mg tablet Take 1 tablet (25 mg total) by mouth 1 (one) time each day. 30 each 2 03/02/20 25 Active meclizine (ANTIVERT) 12.5 mg tabletIndicatio ns:Unspecified sequelae of cerebral infarction TAKE 1 TABLET BY MOUTH 2 TIMES DAILY NEEDED (DIZZINESS). 60 tablet 03/23/20 25 Active Assure Prism Multi Strip test stripIndication s:Type 2 diabetes mellitus without complication, without long-term current use of insulin ([facility] V24, [facility] V28) Use one test strip to check blood sugar once a day. 100 each 5 03/27/20 25 026 Active calcium carbonate-vitam in D 600 mg-10 mcg (400 unit) per tabletIndicatio ns:Age-related osteoporosis without current pathological fracture TAKE 1 TABLET BY MOUTH TWICE A DAY 180 tablet 1 03/28/20 25 Active calcium carbonate-vitam in D 600 mg-10 mcg (400 unit) per tabletIndicatio ns:Age-related osteoporosis without current pathological fracture Take 1 tablet by mouth 2 (two) times a day. 180 tablet 01/02/20 25 025 Discontinued blood sugar diagnostic (Accu-Chek Kamryn Plus test strp) test stripIndication s:Type 2 diabetes mellitus with other specified complication, with long-term current use of insulin ([facility] V24, [facility] V28) Use to test blood sugars 2x daily Accucheck Kamryn or whichever is covered by insurance 100 each 12 01/24/20 25 025 Discontinued meclizine (ANTIVERT) 12.5 mg tabletIndicatio ns:Unspecified sequelae of cerebral infarction TAKE 1 TABLET BY MOUTH 2 TIMES DAILY NEEDED (DIZZINESS). 60 tablet 02/02/20 25 025 Discontinued loperamide (Imodium A-D) 2 mg tablet Take 1 tablet (2 mg total) by mouth 3 (three) times a day if needed for diarrhea for up to 10 days. 30 tablet 03/12/20 25 025 Discontinued(R eorder) loperamide (Imodium A-D) 2 mg tablet Take 1 tablet (2 mg total) by mouth 3 (three) times a day if needed for diarrhea for up to 10 days. 30 tablet 03/16/20 25 025 cefpodoxime (VANTIN) 100 mg tablet Take 1 tablet (100 mg total) by mouth 2 (two) times a day for 7 days. 14 tablet 03/23/20 25 025 Active Problems Problem Noted Date Diagnosed Date Elevated troponin 01/28/2025 Chest pressure 12/12/2024 Assessment & Plan (12/13/2024 6:46 AM EDT): The patient presented to the emergency room on 2024 with chest pressure and had a very reassuring workup with normal troponins and a nonischemic EKG. Additionally, her BNP was normal. It appears as though the symptoms of chest pressure, shortness of breath, and fatigue have been ongoing for some time now, and at the moment are unchanged from previous. Because of her shortness of breath and fatigue, she had a regadenoson nuclear stress test on 06/06/2024 which was normal; this was also very reassuring. My suspicion is that she has untreated sleep apnea which is why she is not sleeping well and overall feels poorly; this is likely what triggered her chest pressure when she woke up in the morning she presented to the ER. I have encouraged her to prop her head up while sleeping to see if this promotes more restful sleep. She is very anxious about the symptoms and the fact that she has been feeling so poorly for so long. We will update an echocardiogram to reevaluate if there is a component of underlying structural or functional heart disease. We did discuss repeating an ischemic workup; however, given she had a normal nuclear stress test approximately 6 months ago with similar symptoms, we will defer this until the results of her echo have been reviewed. The patient was advised to seek emergent medical attention by calling 911 if they were to develop severe dyspnea, chest pain that did not resolve with rest, or if they were to faint. Orders: Transthoracic echocardiogram (TTE) complete with PRN contrast, bubble, strain, and 3D order panel; Future CORONA (dyspnea on exertion) 12/12/2024 Assessment & Plan (12/13/2024 6:46 AM EDT): As above; the patient's dyspnea on exertion may be multifactorial related to previous smoking history, obesity, and significant deconditioning over the last several years. They are already obtaining an echocardiogram for further evaluation of a structural or functional cardiac cause. Could consider PFTs in the future given her previous smoking history. We will continue to readdress this. Orders: Transthoracic echocardiogram (TTE) complete with PRN contrast, bubble, strain, and 3D order panel; Future Other fatigue 12/12/2024 Assessment & Plan (12/13/2024 6:46 AM EDT): Orders: Transthoracic echocardiogram (TTE) complete with PRN contrast, bubble, strain, and 3D order panel; Future Peripheral edema 12/12/2024 Assessment & Plan (12/13/2024 6:46 AM EDT): Very minimal on exam today and the patient reports this is at her normal baseline. She tends to sit with her legs dependent most of the day and was encouraged to elevate them as able, Brian compression as needed, and follow-up low-sodium diet. Additionally, she is on a high dose amlodipine which may be contributing as well. We are obtaining an echocardiogram to evaluate for any underlying heart failure component. Will continue to readdress this as needed; she agrees to call the office should her edema worsen in any way. 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 Orders: Ambulatory referral to Cardiology Assessment & Plan (09/07/2024 12:07 PM EST): For history of CVA, I have placed a referral to follow-up with her neurologist. Continue regimen of clopidogrel, atorvastatin. Orders: Ambulatory referral to Neurology; Future Osteoporosis 09/08/2023 Type 2 diabetes mellitus ([facility] V24, [facility] V 28) 08/29/2023 Assessment & Plan (03/02/2025 12:48 PM EDT): For now she is only on metformin. Will check her A1c levels. Diabetic diet discussed. Orders: Hemoglobin A1c; Future Assessment & Plan (09/07/2024 12:07 PM EST): Will check A1c. Diabetic diet discussed. Orders: Hemoglobin A1c; Future Lumbar radiculopathy 05/25/2022 Overview (05/06/2024): Last Assessment & Plan: Patient describes transverse low back pain that is progressively been worsening for 2 years, pain in her right leg progressively worsening for 4 years, its not clear if its all radicular pain or some of her osteoarthritis, she has previous issues with her right knee, has had cortisone injection x2. She describes pain currently in the right groin, down the posterior leg to the calf. She states if she is in a lot of pain she will note some swelling in her right foot. Earlier this year she was getting pain and cramping in her left calf but that has gotten better. She denies pain in the left leg but states it does feel mild overuse symptoms, she feels she favors the left leg. She notes with walking she gets increased right leg pain, generally feels tired and cannot go very far. If she sits too long she gets back and right leg pain, states she is not sleeping well due to the right leg pain. She has constant daily pain, on a good day rates her pain 6/10, feels generally gets around a 10/10. 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 She tried physical therapy about 2 years ago, did not feel it helped her back pain. She had a lumbar JEFF 11/26/2021, feels it did help her a lot for about a month, has an upcoming appointment for another injection in June. She has chronic urinary incontinence, wears adult diapers, states she gets UTIs every month. Denies bowel incontinence. Patient had MRI lumbar spine 04/27/2022 at [facility] that shows multilevel degenerative changes including left >right neuroforaminal narrowing at L3-4, bilateral facet hypertrophy with bilateral lateral recess stenosis L4-5. There is also mention in the report of a 5 mm circumscribed round focus in the lower pole of the right kidney, likely a simple cyst, not visualized on a prior abdominal CT, ultrasound recommended. I reviewed MRI images in detail with the patient and her daughter. I reviewed patient's films with Dr. Ohara, at this time patient has an upcoming lumbar JEFF at [facility] pain management in [place], she would like to proceed with this injection, see how she does since it helped her in the past. I also ordered right hip x-ray to rule out OA that could be contributing to her groin pain. She also has tenderness over the right SI joint, bilateral lateral hips,? Bursitis. She was seen by JAYDE Sanders in orthopedics for her right knee s/p cortisone injection, he had recommended proceeding a knee specialist for possible gel injection, the patient and her daughter would like to proceed with this since she is still experiencing significant right knee pain, and they will call his office for follow-up. I will also refer patient to urology since she has history of chronic urinary incontinence, frequent recurrent UTIs. I also asked her to discuss with her PCP getting right kidney ultrasound for the cyst. All questions answered on today's visit. They will call with any concerns or questions. Lumbar degenerative disc disease 01/20/2022 Hypertension 11/20/2021 Assessment & Plan (03/02/2025 12:48 PM EDT): Follow low-sodium diet. Continue amlodipine 5 mg daily and metoprolol 50 mg daily. Assessment & Plan (12/13/2024 6:46 AM EDT): Blood pressure is well-controlled on current antihypertensive regimen; continue amlodipine and metoprolol. Her most recent metabolic panel showed normal renal function and electrolytes on 2024. Assessment & Plan (09/07/2024 12:07 PM EST): Follow low-sodium diet. Continue current treatment of amlodipine, metoprolol. 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 2017: Gabapentin not helpful, pregabalin caused lightheadedness. Anxiety 05/21/2015 Assessment & Plan (03/02/2025 12:48 PM EDT): Refill sertraline. Will reevaluate anxiety again in 4 to 6 weeks. Will consider increasing dose from 25 to 50 mg if anxiety is not under control at the next visit. Osteoarthritis, hand 10/03/2012 Depression 09/22/2012 Overview (05/06/2024): With anxiety Vitamin D deficiency 09/18/2012 Hyperlipidemia 04/26/2007 Assessment & Plan (12/13/2024 6:46 AM EDT): The patient's most recent lipid panel was completed 03/31/2024 showing an LDL of 55; given her history of CVA and diabetes, LDL goal is less than 55. She was encouraged to continue with lifestyle modifications with improved diet and increased activity as tolerated to further improve her cholesterol; continue atorvastatin. Cataract 05/06/2006 Dysphagia 11/12/2005 Overview (05/06/2024): IMO update Assessment & Plan (09/07/2024 12:07 PM EST): She will have small bites and take sips of water if she is eating hard, chewy foods. Declines follow-up with GI. Headache 11/12/2005 Allergic rhinitis 11/12/2005 Resolved Problems Problem Noted Date Diagnosed Date Resolved Date Shortness of breath 01/26/2025 02/01/20 Encounters Date Type Department Care Team Description 03/29/2025 Referral Triage [facility] [address] [place] [phone] Tamiko Workman 03/27/2025 Telephone Internal Medicine - [facility] [address] [place] [address] Kristy Cedillo MD 03/19/2025 [facility] [phone] Kristy Cedillo MD 03/16/2025 Telephone Neurostroke - [place] [address] [place] [address] Luanne Hutchins MA 03/16/2025 [facility] [address] [place] [address] Lilly Corona RN 03/12/2025 [facility] [phone] Kristy Cedillo MD 03/02/2025 11:00 AM EDT [facility] [address] [place] [address] Candelario Marsh MD History of colitis (Primary Dx); Esophageal dysmotility; Type 2 diabetes mellitus with hyperglycemia, without long-term current use of insulin (CMS/HCC V24, CMS/HCC V28); Hypertension, unspecified type; Anxiety 02/26/2025 [facility] [address] [place] [address] Candelario Marsh MD 02/22/2025 Telephone Internal Medicine - [facility] [address] [place] [address] Candelario Marsh MD 02/21/2025 Telephone Internal Medicine - [facility] [address] [place] [address] Candelario Marsh MD 02/21/2025 [facility] [address] [place] [address] Candelario Marsh MD 02/21/2025 [facility] [address] [place] [address] Candelario Marsh MD 02/21/2025 Telephone Adult Medicine [address] [phone] Mary Becker PharmD 02/20/2025 [facility] [address] [place] [address] Lilly Corona RN 02/20/2025 [facility]phone [facility] [address] [place] [address] Candelario Marsh MD 02/19/2025 Telephone [facility] [address] [place] [address] Candelario Marsh MD 02/17/2025 Lab Requisition [facility] [address] [facility] [place] [phone] Jelena Kang MD Vitamin D deficiency, unspecified; Essential (primary) hypertension; Type 2 diabetes mellitus without complications (CMS/HCC V24, CMS/HCC V28); Age-related osteoporosis without current pathological fracture 02/16/2025 Telephone Internal Medicine - [facility] [address] [place], [place] [address], [place] [phone] Candelario Marsh MD 02/15/2025 Telephone Internal Medicine - [facility] [address] [place], [place] [address], [place] [phone] Linette Regan NP 02/15/2025 Telephone Internal Medicine - [address] [phone] Candelario Marsh MD 02/15/2025 [facility] - [address] [phone] Candelario Marsh MD 02/12/2025 Telephone Internal Medicine - [address] [phone] Candelario Marsh MD 02/10/2025 Lab Requisition [facility] [address] [place] [address] Jelena Kang MD Vitamin D deficiency, unspecified; Essential (primary) hypertension; Type 2 diabetes mellitus without complications ([facility] V24, [facility] V28); Age-related osteoporosis without current pathological fracture 02/07/2025 Billing Patient Not Present Internal Medicine - [address] [phone] Candelario Marsh MD Type 2 diabetes mellitus with hyperglycemia, unspecified whether longterm insulin use ([facility] V24, [facility] V28) (Primary Dx); Urinary tract infection without hematuria, site unspecified; Essential (primary) hypertension; Depression, unspecified depression type; Other intervertebral disc degeneration of lumbar region without lumbar back pain or lower extremity pain; Primary osteoarthritis of hand, unspecified laterality; Age-related osteoporosis without current pathological fracture; Other hyperlipidemia; Unspecified glaucoma(365.9); History of falling 02/02/2025 Lab Requisition [facility] [address] [place] [address] Jelena Kang MD Vitamin D deficiency, unspecified; Essential (primary) hypertension; Type 2 diabetes mellitus without complications ([facility] V24, [facility] V28); Age-related osteoporosis without current pathological fracture 02/01/2025 Lab Requisition [facility] [address] [facility] [place] [phone] Jelena Kang MD Osteopetrosis; Type 2 diabetes mellitus without complications ([facility] V24, [facility] V28); Essential (primary) hypertension; Other cerebrovascular disease; Vitamin D deficiency, unspecified 02/01/2025 [facility] [address] [place] [phone] Candelario Marsh MD 01/31/2025 Telephone Internal Medicine - [address] [phone] Candelario Marsh MD 01/26/2025 10:26 AM EDT - 01/31/2025 12:24 PM EDT Hospital Encounter [facility] [address] [place] [phone] Felix Turner MD Santoyo-Pacheco, Omar D, MD Japaridze, Anna, MD Elevated troponin (Primary Dx); Gastroenteritis; Shortness of breath; Dysphagia, unspecified type Discharge Disposition: Residential Facility 01/23/2025 Telephone Internal Medicine - [address] [phone] Candelario Marsh MD 01/22/2025 Telephone Internal Medicine - [address] [phone] Candelario Marsh MD 01/20/2025 10:04 AM EDT - 01/21/2025 2:29 PM EDT Emergency [facility] Emergency [address] [place] [phone] Savanah Smith DO Montano, Gary L, MD SOB (shortness of breath) (Primary Dx); Urinary tract infection in elderly patient; Uncontrolled type 2 diabetes mellitus with hyperglycemia ([facility] V24, [facility] V28) Discharge Disposition: Home-Health Care [facility] 01/18/2025 Telephone Internal Medicine - [facility] [address] [place] [address] Candelario Marsh MD from Last 3 Months Immunizations Name Administration Dates Next Due Influenza trivalent, 0.5mL ( Fluad) 65yo and older 04/20/2024,04/23/2023,04/23/2022,05/05,04/14/2019,04/28/2018,05/12/2017 Influenza trivalent, 0.5mL, preservative free (Fluarix; FluLaval; Fluzone) ages 6mo and older (Afluria) 3 years and older 07/10/2016,04/30/2015,06/01/2013,08/23,08/13/2011,05/08/2010,05/07/2008 ,04/26/2007,05/06/2006 conXt SARS-CoV-2 COVID-19, mRNA, LNP-S, preservative free 06/17/2021,09/28/2020,08/31/2020 Pneumococcal conjugate 13 va lent (Prevnar 13, PCV13) 2mo and older 11/04/2016 Pneumococcal polysaccharide 23 valent (Pneumovax 23) 2yo and older 05/05/2020,06/06/2009 Td Tetanus diptheria (Tdvax) 7yo and older 10/12/2022,08/13/2011 Tdap Tetanus diptheria acell ular pertussis (Boostrix; Adacel) 7yo and older 09/14/2012 Zoster Live 09/18/2012 Surgical History Surgery Date Site/Laterality Comments OTHER SURGICAL HISTORY 12/24/2005 PROCEDURE: MAMMOGRAM; COMMENT: neg (Rad & Imag) OTHER SURGICAL HISTORY 11/23/2005 PROCEDURE: PAP SMEAR (1 SLIDE); COMMENT: Octavio; neg ESOPHAGOGASTRODUODENOSCOPY 01/24/2004 PROCEDURE: SC ESOPHAGOGASTRODUODENOSCOPY TRANSORAL DIAGNOSTIC; COMMENT: Clauszrajwinder; neg HYSTERECTOMY PROCEDURE: HISTORICAL TOTAL HYSTERECTOMY WITH BSO KNEE ARTHROSCOPY - PROCEDURE: SC ARTHROSCOPY AID TX SPINE&/FX KNEE W/O FIXJ; COMMENT: left COLONOSCOPY 01/24/2004 PROCEDURE: SC COLONOSCOPY STOMA DX INCLUDING COLLJ SPEC SPX; COMMENT: Kelly; neg COLONOSCOPY 04/25/2015 PROCEDURE: HISTORICAL COLONOSCOPY; COMMENT: Diverticulosis, otherwise normal FLEXIBLE SIGMOIDOSCOPY 09/23/2016 PROCEDURE: SC SIGMOIDOSCOPY FLX DX W/COLLJ SPEC BR/WA IF PFRMD; COMMENT: hemorrhoids Medical History Medical History Date Comments Headache(784.0) 11/12/2005 DX:Headache(784. 0) Dysphagia 11/12/2005 DX:Dysphagia Allergic rhinitis, cause unspecified 11/12/2005 DX:Allergic rhinitis, cause unspecified Unspecified cataract 05/06/2006 DX:Unspecif ied cataract Other and unspecified hyperlipidemia 04/26/2007 DX:Other and unspecified hyperlipidemia Osteoarthritis 06/06/2009 DX:Osteoarthriti s Depression 09/22/2012 DX:Depression Osteoarthritis, hand 10/03/2012 DX:Osteoart hritis, hand Glaucoma 11/22/2018 DX:Glaucoma Chronic anterior uveitis 01/16/2020 DX:Front End Assistant irshi anterior uveitis; COMMENT: On methotrexate Lumbar degenerative disc disease 01/20/2022 DX:Lumbar degenerative disc disease HTN (hypertension) DX:HTN (hyper tension) Type 2 diabetes mellitus (CM S/HCC V24, CMS/HCC V28) 08/29/2023 DX:Type 2 diabetes mellitus (HCC) Osteoporosis 09/08/2023 DX:Osteoporosis Family History Medical History Relation Name Comments Hypertension Brother x6 4 2 Arthritis Daughter 1 Glaucoma Daughter 1 Other: Other Daughter 1 depression Other: Other Daughter 2 lupus Arthritis Father Diabetes Mother Breast cancer Other 1 niece Breast cancer Other 2 niece Coronary artery disease Sister x4 3 3rd sister from CAD Other: ovarian cancer Sister x4 3 Arthritis Son 1 Other: Other Son 2 gluten allergy? Relation Name Status Comments Brother x6 4 Alive Daughter 1 Alive Daughter 2 Alive Father Mother Other 1 niece Alive Other 2 Sister x4 3 Alive Son 1 Alive Son 2 Alive Social History Tobacco Use Types Packs/Day Years Used Date Smoking Tobacco: Never Smokeless Tobacco: Never Tobacco Cessation:Counseling Given: Not Answered Alcohol Use Standard Drinks/Week Comments No 0 [...] for your loved ones. For example, children's ministries director or elderly care for an older [...] Orientation Straight 01/26/2025 5: 58 PM EDT Obstetrics History Last Filed Vital Signs Vital Sign Reading Time Taken Comments Blood Pressure 115/68 03/02/2025 11:06 AM EDT Pulse 78 03/02/2025 11:06 AM EDT Temperature 36.3 C (97.4 F) 01/31/2025 7:57 AM EDT Respiratory Rate 16 01/31/2025 7:57 AM EDT Oxygen Saturation 98% 01/31/2025 7:57 AM EDT Inhaled Oxygen Concentration - - Weight 88.2 kg (194 lb 6.4 oz) 03/02/2025 11:06 AM EDT Height 167.6 cm (5' 6 ) 03/02/2025 11:06 AM EDT Body Mass Index 31.38 03/02/2025 11:06 AM EDT Plan of Treatment Upcoming Encounters Date Type Department Care Team (Late st Contact Info) Description 04/17/2025 11:15 AM EDT Office Visit Internal Medicine - [facility] [address] [place] [address] Linette Regan, TORRI [address] [place] [address] 04/20/2025 1:30 PM EDT Medication Management Adult Medicine - [address] [phone] Mary Becker, PharmD [address] [place] [address] 05/22/2025 10:40 AM EDT Office Visit Neurology - [address] [place] [address] Eddy Langley MD [address] [address] 06/15/2025 10:40 AM EST Office Visit Gastroenterology - [place] [address] [facility] [address] [place] [phone] Marlen Castro NP 175 [facility] [address] [place] [address] 07/10/2025 9:00 AM EST Procedure visit Urogynecology - [address] [phone] Kamilah Mcconnell MD 580 [facility] [address] [place] [address] 07/30/2025 12:00 PM EST Office Visit Internal Medicine - [facility] [address] [place] [address] Kristy Cedillo MD [address] [place] [address] Health Maintenance Due Date Last Done Comments Diabetes: Annual Retina Eye Exam 11/27/1950 Zoster Vaccines (2 of 3) 11/13/2012 09/18/2012 RSV Immunization Adult Patients (1 - 1-dose 75+ series) 11/27/2014 Medicare Annual Wellness Visit 07/04/2022 Depression Screening 07/26/2024 Diabetes: Annual Foot Exam 09/26/2024 09/27/2023 Diabetes: Annual Urine Albumin-Creatinine Ratio (uACR) 12/01/2024 12/02/2023 COVID-19 Vaccine ( season) 2025 06/17/2021, 09/28/2020, 08/31/2020 Influenza Vaccine (#1) 2025 , 04/23/2023, 04/23/2022, Additional history exists Diabetes: Blood Sugar Control Test (HGBA1C) 08/04/2025 02/01/2025, 01/27/2025, 10/26/2024, Additional history exists Falls Risk Assessment 01/31/2026 01/31/2025 Diabetes: Annual GFR (Glomerular Filtration Rate) 02/12/2026 02/12/2025, 02/05/2025, 02/01/2025, Additional history exists Hypertension/CHF/CAD Annual BMP Blood Test 02/12/2026 02/12/2025, 02/05/2025, 02/01/2025, Additional history exists Social Influencers of Health Screening 02/14/2026 02/14/2025 Cholesterol Screening (Lipid Panel) 04/20/2029 04/20/2024, 04/20/2024, 12/02/2023 DTaP,Tdap,and Td Vaccines (4 - Td or Tdap) 10/12/2032 10/12/2022, 09/14/2012, 08/13/2011 Osteoporosis Screening (Bone Density Screening) 09/02/2033 09/02/2023, 04/07/2021 Pneumococcal Vaccine: 50+ Years Completed 05/05/2020, 11/04/2016, 06/06/2009 HIB Vaccines Aged Out No longer eligi ble based on patient's age to complete this topic HPV Vaccines Aged Out No longer eligi ble based on patient's age to complete this topic Hepatitis A Vaccines Aged Out No long er eligible based on patient's age to complete this topic Hepatitis B Vaccines Aged Out No long er eligible based on patient's age to complete this topic IPV Vaccines Aged Out No longer eligi ble based on patient's age to complete this topic MMR Vaccines Aged Out No longer eligi ble based on patient's age to complete this topic Meningococcal ACWY Vaccine Aged Out N o longer eligible based on patient's age to complete this topic Meningococcal B Vaccine Aged Out No l onger eligible based on patient's age to complete this topic RSV Immunization Patients Under 20 months Aged Out No longer eligible based on patient's age to complete this topic Varicella Vaccines Aged Out No longer eligible based on patient's age to complete this topic Goals Goal Patient Goal Type Associated Problems Recent Progress Patient-Stated? Author Adherence to Treatment Plan General Merly Rodriguez, ENRIQUETA Note: Pt will take her BG reading before all meals Pt will carry glucose gel or tablets with her at all times and keep at the bedside as well Procedures Procedure Name Priority Date/Time Associated Diagnosis Comments HOME HEALTH ORDER 03/25/2025 EXTERNAL CLINICAL LAB 03/23/2025 EXTERNAL CLINICAL LAB 03/08/2025 EXTERNAL CLINICAL LAB 03/08/2025 EXTERNAL CLINICAL LAB 03/05/2025 EXTERNAL XRAY REPORT 03/02/2025 EXTERNAL XRAY REPORT 03/02/2025 EXTERNAL CLINICAL LAB 03/01/2025 EXTERNAL CLINICAL LAB 03/01/2025 BASIC METABOLIC PANEL Routine 02/12/2025 10:25 AM EDT Vitamin D deficiency, unspecified Essential (primary) hypertension Type 2 diabetes mellitus without complications (CMS/HCC V24, CMS/HCC V28) Age-related osteoporosis without current pathological fracture COMPLETE BLOOD COUNT Routine 02/12/2025 10:25 AM EDT Vitamin D deficiency, unspecified Essential (primary) hypertension Type 2 diabetes mellitus without complications (CMS/HCC V24, CMS/HCC V28) Age-related osteoporosis without current pathological fracture BASIC METABOLIC PANEL Routine 02/05/2025 8:36 AM EDT Vitamin D deficiency, unspecified Essential (primary) hypertension Type 2 diabetes mellitus without complications (CMS/HCC V24, CMS/HCC V28) Age-related osteoporosis without current pathological fracture COMPLETE BLOOD COUNT Routine 02/05/2025 8:36 AM EDT Vitamin D deficiency, unspecified Essential (primary) hypertension Type 2 diabetes mellitus without complications (CMS/HCC V24, CMS/HCC V28) Age-related osteoporosis without current pathological fracture HEMOGLOBIN A1C Routine 02/01/2025 7:28 AM EDT Osteopetrosis Type 2 diabetes mellitus without complications (CMS/HCC V24, CMS/HCC V28) Essential (primary) hypertension Other cerebrovascular disease Vitamin D deficiency, unspecified VITAMIN D 25 HYDROXY Routine 02/01/2025 7:28 AM EDT Osteopetrosis Type 2 diabetes mellitus without complications (CMS/HCC V24, CMS/HCC V28) Essential (primary) hypertension Other cerebrovascular disease Vitamin D deficiency, unspecified FOLATE Routine 02/01/2025 7:28 AM EDT Osteopetrosis Type 2 diabetes mellitus without complications (CMS/HCC V24, CMS/HCC V28) Essential (primary) hypertension Other cerebrovascular disease Vitamin D deficiency, unspecified MAGNESIUM Routine 02/01/2025 7:28 AM EDT Osteopetrosis Type 2 diabetes mellitus without complications (CMS/HCC V24, CMS/HCC V28) Essential (primary) hypertension Other cerebrovascular disease Vitamin D deficiency, unspecified VITAMIN B12 Routine 02/01/2025 7:28 AM EDT Osteopetrosis Type 2 diabetes mellitus without complications (CMS/HCC V24, CMS/HCC V28) Essential (primary) hypertension Other cerebrovascular disease Vitamin D deficiency, unspecified COMPREHENSIVE METABOLIC PANEL Routine 02/01/2025 7:28 AM EDT Osteopetrosis Type 2 diabetes mellitus without complications (CMS/HCC V24, CMS/HCC V28) Essential (primary) hypertension Other cerebrovascular disease Vitamin D deficiency, unspecified COMPLETE BLOOD COUNT Routine 02/01/2025 7:28 AM EDT Osteopetrosis Type 2 diabetes mellitus without complications (CMS/HCC V24, CMS/HCC V28) Essential (primary) hypertension Other cerebrovascular disease Vitamin D deficiency, unspecified ECG ANNOTATED 02/01/2025 HOME HEALTH ORDER 02/01/2025 POCT GLUCOSE BLOOD Routine 01/31/2025 11 :03 AM EDT POCT GLUCOSE BLOOD Routine 01/31/2025 7: 58 AM EDT CULTURE SPUTUM Routine 01/30/2025 11:02 PM EDT POCT GLUCOSE BLOOD Routine 01/30/2025 7: 40 PM EDT POCT GLUCOSE BLOOD Routine 01/30/2025 3: 58 PM EDT XR CHEST 1 VIEW STAT 01/30/2025 2:30 PM EDT ECG 12-LEAD Routine 01/30/2025 2:08 PM EDT POCT GLUCOSE BLOOD Routine 01/30/2025 10 :58 AM EDT POCT GLUCOSE BLOOD Routine 01/30/2025 8: 05 AM EDT POCT GLUCOSE BLOOD Routine 01/29/2025 7: 48 PM EDT POCT GLUCOSE BLOOD Routine 01/29/2025 4: 06 PM EDT POCT GLUCOSE BLOOD Routine 01/29/2025 11 :22 AM EDT POCT GLUCOSE BLOOD Routine 01/29/2025 7: 57 AM EDT CBC WITH AUTO DIFFERENTIAL Routine 01/29/2025 5:13 AM EDT LACTATE Routine 01/29/2025 5:13 AM EDT PHOSPHORUS Routine 01/29/2025 5:13 AM EDT MAGNESIUM Routine 01/29/2025 5:13 AM EDT CBC AND DIFFERENTIAL Routine 01/29/2025 5:13 AM EDT BASIC METABOLIC PANEL Routine 01/29/2025 5:13 AM EDT POCT GLUCOSE BLOOD Routine 01/28/2025 7: 34 PM EDT POCT GLUCOSE BLOOD Routine 01/28/2025 4: 24 PM EDT ACTH STIMULATION 1 HOUR Routine 01/28/2025 12:24 PM EDT POCT GLUCOSE BLOOD Routine 01/28/2025 11 :23 AM EDT ACTH STIMULATION 30 MIN Routine 01/28/2025 10:42 AM EDT ACTH STIMULATION BASELINE Routine 01/28/2025 9:47 AM EDT ACTH STIMULATION, 3 TIME POINTS Routine 01/28/2025 9:47 AM EDT POCT GLUCOSE BLOOD Routine 01/28/2025 7: 47 AM EDT CORTISOL Add-On 01/28/2025 5:42 AM EDT CBC WITH AUTO DIFFERENTIAL Routine 01/28/2025 5:42 AM EDT C-REACTIVE PROTEIN Routine 01/28/2025 5: 42 AM EDT PHOSPHORUS Routine 01/28/2025 5:42 AM EDT MAGNESIUM Routine 01/28/2025 5:42 AM EDT CBC AND DIFFERENTIAL Routine 01/28/2025 5:42 AM EDT BASIC METABOLIC PANEL Routine 01/28/2025 5:42 AM EDT POCT GLUCOSE BLOOD Routine 01/27/2025 7: 50 PM EDT POCT GLUCOSE BLOOD Routine 01/27/2025 4: 54 PM EDT TROPONIN I HIGH SENSITIVITY Routine 01/27/2025 2:40 PM EDT POCT GLUCOSE BLOOD Routine 01/27/2025 11 :59 AM EDT POCT GLUCOSE BLOOD Routine 01/27/2025 8: 12 AM EDT C-REACTIVE PROTEIN Add-On 01/27/2025 6: 03 AM EDT VITAMIN B12 Routine 01/27/2025 6:03 AM EDT HEMOGLOBIN A1C Routine 01/27/2025 6:03 AM EDT COMPLETE BLOOD COUNT Routine 01/27/2025 6:03 AM EDT BASIC METABOLIC PANEL Routine 01/27/2025 6:03 AM EDT POCT GLUCOSE BLOOD Routine 01/26/2025 11 :26 PM EDT POCT GLUCOSE BLOOD Routine 01/26/2025 8: 59 PM EDT POCT GLUCOSE BLOOD Routine 01/26/2025 5: 53 PM EDT [place] URINE CULTURE TUBE STAT 01/26/2025 1:39 PM EDT URINALYSIS WITH REFLEX MICROSCOPIC AND CULTURE STAT 01/26/2025 1:39 PM EDT URINALYSIS WITH REFLEX MICROSCOPIC AND CULTURE STAT 01/26/2025 1:39 PM EDT CULTURE URINE STAT 01/26/2025 1:39 PM EDT LACTATE, WITH REFLEX Timed 01/26/2025 12:55 PM EDT TROPONIN I HIGH SENSITIVITY STAT 01/26/2025 12:[address] ABDOMEN PELVIS W CONTRAST STAT 01/26/2025 12:35 PM EDT XR CHEST 2 VIEWS STAT 01/26/2025 11:5 7 AM EDT CBC WITH AUTO DIFFERENTIAL STAT 01/26/2025 11:13 AM EDT LACTATE, WITH REFLEX STAT 01/26/2025 11:13 AM EDT COMPREHENSIVE METABOLIC PANEL STAT 01/26/2025 11:13 AM EDT TROPONIN I HIGH SENSITIVITY STAT 01/26/2025 11:13 AM EDT B-TYPE NATRIURETIC PEPTIDE STAT 01/26/2025 11:13 AM EDT CBC AND DIFFERENTIAL STAT 01/26/2025 11:13 AM EDT CULTURE BLOOD STAT 01/26/2025 11:13 AM EDT CULTURE BLOOD STAT 01/26/2025 11:05 AM EDT ECG 12-LEAD STAT 01/26/2025 11:00 AM EDT RESPIRATORY VIRUS PANEL MOLECULAR STUDY STAT 01/26/2025 10:58 AM EDT ECG ANNOTATED 01/22/2025 POCT GLUCOSE BLOOD Routine 01/21/2025 12 :12 PM EDT POCT GLUCOSE BLOOD Routine 01/21/2025 10 :53 AM EDT POCT GLUCOSE BLOOD Routine 01/21/2025 8: 30 AM EDT POCT GLUCOSE BLOOD Routine 01/20/2025 4: [address] ANGIO CHEST WO AND/OR W CONTRAST STAT 01/20/2025 2:04 PM EDT SOB (shortness of breath) ECG 12-LEAD STAT 01/20/2025 11:55 AM EDT [place] URINE CULTURE TUBE STAT 01/20/2025 11:32 AM EDT URINALYSIS WITH REFLEX MICROSCOPIC AND CULTURE STAT 01/20/2025 11:32 AM EDT URINALYSIS WITH REFLEX MICROSCOPIC AND CULTURE STAT 01/20/2025 11:32 AM EDT CULTURE URINE STAT 01/20/2025 11:32 AM EDT TROPONIN I HIGH SENSITIVITY STAT 01/20/2025 11:24 AM EDT XR CHEST 2 VIEWS STAT 01/20/2025 10:4 3 AM EDT RESPIRATORY VIRUS PANEL MOLECULAR STUDY STAT 01/20/2025 10:28 AM EDT BETA HYDROXYBUTYRATE Add-On 01/20/2025 10:19 AM EDT CBC WITH AUTO DIFFERENTIAL STAT 01/20/2025 10:19 AM EDT B-TYPE NATRIURETIC PEPTIDE STAT 01/20/2025 10:19 AM EDT MAGNESIUM STAT 01/20/2025 10:19 AM EDT LIPASE STAT 01/20/2025 10:19 AM EDT COMPREHENSIVE METABOLIC PANEL STAT 01/20/2025 10:19 AM EDT CBC AND DIFFERENTIAL STAT 01/20/2025 10:19 AM EDT TROPONIN I HIGH SENSITIVITY STAT 01/20/2025 10:19 AM EDT ECG 12-LEAD STAT 01/20/2025 10:11 AM EDT LIPID PANEL Routine 04/20/2024 URINE ALBUMIN CREATININE RATIO Routine 12/02/2023 DIABETES FOOT EXAM Routine 09/27/2023 DXA BONE DENSITY STUDY 1+ SITS AXIAL SKEL Routine 09/02/2023 9:37 AM EST Encounter for screening for osteoporosis from Last 3 Months or Most Recently Relevant to Health Maintenance Results * Home Health Order (03/25/2025) Only the most recent of2 resultswithin the time period is included. us Provider [facility] NURSING ASSESSMENTS Nikkie l Result * External clinical lab (03/23/2025) Only the most recent of6 resultswithin the time period is included. us Provider [facility] LAB BLOOD ORDERABLES Fin al Result * External Xray Report (03/02/2025) Only the most recent of2 resultswithin the time period is included. Anatomical Region Laterality Modality Radiographic Leonora ging us Provider [facility] IMG XR PROCEDURES Final Result * (ABNORMAL) Complete blood count (02/12/2025 10:25 AM EDT) Only the most recent of4 resultswithin the time period is included. WBC 4.4(L) 4.8 - 10.8 K/mcL LAB HEMETOLOGY METHOD 02/12[facility]2025 [facility] RBC 4.40 3.80 - 4.80 M/mcL LAB HEMETOLOGY METHOD 02/12/2025 1:13 [facility] Hemoglobin 12.9 11.5 - 16.0 g/dL LAB HEMETOLOGY METHOD 02/12/2025 1:13 PM [facility] Hematocrit 41.9 35.0 - 47.0 % LAB HEMETOLOGY METHOD 02/12/2025 1:13 PM [facility] MCV 95.7 79.0 - 98.0 FL LAB HEMETOLOGY METHOD 02/12/2025 1:13 PM [facility] MCH 29.5 27.0 - 32.0 pcg LAB HEMETOLOGY METHOD 02/12/2025 1:13 PM [facility] MCHC 30.8(L) 32.0 - 37.0 g/dL LAB HEMETOLOGY METHOD 02/12/2025 1:13 PM [facility] RDW 13.9 11.0 - 15.0 % LAB HEMETOLOGY METHOD 02/12/2025 1:13 PM EDT [facility] Platelets 308 130 - 400 K/mcL LAB HEMETOLOGY METHOD 02/12/2025 1:13 PM EDT [facility] MPV 10.3 7.0 - 11.0 FL LAB HEMETOLOGY METHOD 02/12/2025 1:13 PM EDT [facility] NRBC 0.0 <1.0 % LAB HEMETOLOGY METHOD 02/12/2025 1:13 PM EDT [facility] NRBC Absolute 0.00 <0.10 K/mcL LAB HEMETOLOGY METHOD 02/12/2025 1:13 PM EDT [facility] Blood Venous blood specimen / Unknown Venipuncture / Unknown 02/12/2025 10:25 AM EDT 02/12/2025 11:58 AM EDT us Jelena Kang MD LAB BLOOD ORDERABLES Fin al Result [facility] [address] [place] [address], [place] [phone] * (ABNORMAL) Basic metabolic panel (02/12/2025 10:25 AM EDT) Only the most recent of5 resultswithin the time period is included. Sodium 141 133 - 145 mmol/L LAB CHEMISTRY METHOD 02/12/2025 4:45 PM EDT [facility] Potassium 4.0 3.5 - 5.5 mmol/L LAB CHEMISTRY METHOD 02/12/2025 4:45 PM EDT [facility] Chloride 107 96 - 110 mmol/L LAB CHEMISTRY METHOD 02/12/2025 4:45 PM EDT [facility] CO2 27 21 - 32 mmol/L LAB CHEMISTRY METHOD 02/12/2025 4:45 PM EDT [facility] Anion Gap 7 3 - 11 LAB CHEMISTRY METHOD 02/12/2025 4:45 PM EDT [facility] Glucose 147(H) 70 - 100 mg/dL LAB CHEMISTRY METHOD 02/12/2025 4:45 PM EDT [facility] BUN 7 5 - 25 mg/dL LAB CHEMISTRY METHOD 02/12/2025 4:45 PM EDT [facility] Creatinine 0.61 0.50 - 1.10 mg/dL LAB CHEMISTRY METHOD 02/12/2025 4:45 PM EDT [facility] eGFR 88 >=60 mL/min/1. 73m2 LAB CHEMISTRY METHOD 02/12/2025 4:45 PM EDT [facility] Comment:Calculation based on the Chronic Kidney Disease Epidemiology Collaboration (CKD-EPI) equation refit without adjustment for race. BUN/Creatinine Ratio 11.5 LAB CHEMISTRY METHOD 02/12/2025 4:45 PM EDT [facility] Calcium 9.5 8.5 - 10.5 mg/dL LAB CHEMISTRY METHOD 02/12/2025 4:45 PM EDT [facility] Blood Venous blood specimen / Unknown Venipuncture / Unknown 02/12/2025 10:25 AM EDT 02/12/2025 11:58 AM EDT us Jelena Kang MD LAB BLOOD ORDERABLES Fin al Result [facility] [address] [place] [address], * Vitamin D 25 hydroxy (02/01/2025 7:28 AM EDT) Vit D, 25-Hydroxy 38.5 30.0 - 80.0 ng/mL LAB CHEMISTRY METHOD 02/01/2025 2:23 PM EDT [facility] Blood Venous blood specimen / Unknown Venipuncture / Unknown 02/01/2025 7:28 AM EDT 02/01/2025 10:22 AM EDT Jelena Kang MD LAB BLOOD ORDERABLES Fin al Result [facility] [address] [place] [address], [place] [phone] * Magnesium (02/01/2025 7:28 AM EDT) Only the most recent of4 resultswithin the time period is included. Magnesium 2.0 1.9 - 2.6 mg/dL LAB CHEMISTRY METHOD 02/01/2025 1:32 PM EDT [facility] Blood Venous blood specimen / Unknown Venipuncture / Unknown 02/01/2025 7:28 AM EDT 02/01/2025 10:22 AM EDT Jelena Kang MD LAB BLOOD ORDERABLES Fin al Result Performing Organization Address [facility] de Phone Number [facility] [address] [place] [address], [place] [phone] * (ABNORMAL) Hemoglobin A1c (02/01/2025 7:28 AM EDT) Only the most recent of2 resultswithin the time period is included. Hemoglobin A1C 11.0(H) <6.5 % LAB CHEMISTRY METHOD 02/01/2025 1:37 PM EDT [facility] Mean Bld Glu Estim. 269 mg/dL LAB CHEMISTRY METHOD 02/01/2025 1:37 PM EDT [facility] Blood Venous blood specimen / Unknown Venipuncture / Unknown 02/01/2025 7:28 AM EDT 02/01/2025 10:22 AM EDT Jelena Kang MD LAB BLOOD ORDERABLES Fin al Result Performing Organization Address City/[facility] Co de Phone Number [facility] [address] [place] [address], * (ABNORMAL) Folate (02/01/2025 7:28 AM EDT) [facility] Folate 19.8(H) 2.8 - 17.0 ng/ml LAB CHEMISTRY METHOD 02/01/2025 1:32 PM EDT [facility] Blood Venous blood specimen / Unknown Venipuncture / Unknown 02/01/2025 7:28 AM EDT 02/01/2025 10:22 AM EDT Jelena Kang MD LAB BLOOD ORDERABLES Fin al Result Performing Organization Address [facility] de Phone Number [facility] [address] [place] [address], * (ABNORMAL) Vitamin B12 (02/01/2025 7:28 AM EDT) Only the most recent of2 resultswithin the time period is included. [facility] Vitamin B-12 1,337(H) 250 - 900 pcg/mL LAB CHEMISTRY METHOD 02/01/2025 1:32 PM EDT [facility] Blood Venous blood specimen / Unknown Venipuncture / Unknown 02/01/2025 7:28 AM EDT 02/01/2025 10:22 AM EDT Jelena Kang MD LAB BLOOD ORDERABLES Fin al Result Performing Organization Address [facility] Co de Phone Number [facility] [address] [place] [address], [place] [phone] * (ABNORMAL) Comprehensive metabolic panel (02/01/2025 7:28 AM EDT) Only the most recent of3 resultswithin the time period is included. [facility] Sodium 142 133 - 145 mmol/L LAB CHEMISTRY METHOD 02/01/2025 1:33 PM [facility] Potassium 4.2 3.5 - 5.5 mmol/L LAB CHEMISTRY METHOD 02/01/2025 1:33 PM [facility] Chloride 110 96 - 110 mmol/L LAB CHEMISTRY METHOD 02/01/2025 1:33 PM [facility] CO2 27 21 - 32 mmol/L LAB CHEMISTRY METHOD 02/01/2025 1:33 PM [facility] Anion Gap 5 3 - 11 LAB CHEMISTRY METHOD 02/01/2025 1:33 PM [facility] Glucose 112(H) 70 - 100 mg/dL LAB CHEMISTRY METHOD 02/01/2025 1:33 PM [facility] BUN 4(L) 5 - 25 mg/dL LAB CHEMISTRY METHOD 02/01/2025 1:33 PM [facility] Creatinine 0.52 0.50 - 1.10 mg/dL LAB CHEMISTRY METHOD 02/01/2025 1:33 PM [facility] eGFR 91 >=60 mL/min/1. 73m2 LAB CHEMISTRY METHOD 02/01/2025 1:33 PM [facility] Comment:Calculation based on the Chronic Kidney Disease Epidemiology Collaboration (CKD-EPI) equation refit without adjustment for race. BUN/Creatinine Ratio 7.7 LAB CHEMISTRY METHOD 02/01/2025 1:33 PM [facility] Calcium 8.6 8.5 - 10.5 mg/dL LAB CHEMISTRY METHOD 02/01/2025 1:33 PM [facility] AST (SGOT) 19 10 - 42 unit/L LAB CHEMISTRY METHOD 02/01/2025 1:33 PM [facility] ALT (SGPT) 31 10 - 60 unit/L LAB CHEMISTRY METHOD 02/01/2025 1:33 PM [facility] Alkaline Phosphatase 98 42 - 121 unit/L LAB CHEMISTRY METHOD 02/01/2025 1:33 PM EDT [facility] Total Protein 5.1(L) 6.0 - 8.0 g/dL LAB CHEMISTRY METHOD 02/01/2025 1:33 PM EDT [facility] Albumin 2.4(L) 3.2 - 5.0 g/dL LAB CHEMISTRY METHOD 02/01/2025 1:33 PM EDT [facility] Total Bilirubin 0.4 0.0 - 1.4 mg/dL LAB CHEMISTRY METHOD 02/01/2025 1:33 PM EDT [facility] Blood Venous blood specimen / Unknown Venipuncture / Unknown 02/01/2025 7:28 AM EDT 02/01/2025 10:22 AM EDT us Jelena Kang MD LAB BLOOD ORDERABLES Fin al Result Performing Organization Address City/[facility]/ZIP Co de Phone Number [facility] [address] [place] [address], [place] [phone] * ECG-Annotated (02/01/2025) Only the most recent of2 resultswithin the time period is included. us Provider [facility] ECG ORDERABLES Final Result * (ABNORMAL) POCT Glucose, blood (01/31/2025 11:03 AM EDT) Only the most recent of25 resultswithin the time period is included. Glucose POCT 153(H) 70 - 100 mg/dL 01/31/2025 11:03 AM EDT [facility] Blood Capillary blood specimen / Unknown 01/31/2025 11:03 AM EDT 01/31/2025 11:05 AM EDT us Megan Boss MD LAB POINT OF CARE TE ST DOCKED DEVICE UNSOLICITED RESULTS Final Result [facility] [address] [place] [address], * (ABNORMAL) Culture sputum (01/30/2025 11:02 PM EDT) Culture, Sputum Kathy albicans/dubliniensi s(A) 02/02/2025 10:26 AM EDT [facility] Comment: The organism value for this result has been updated. These results have been appended to the previously preliminary verified report. Gram Stain Result Moderate Polymorphonuclear leukocytes(A) 02/02/2025 10:26 AM EDT [facility] Comment:This is an appended report. These results have been appended to a previously preliminary verified report. Gram Stain Result Rare Epithelial cells(A) 02/02/2025 10:26 AM T [facility] Comment:This is an appended report. These results have been appended to a previously preliminary verified report. Gram Stain Result Few Gram positive bacilli(A) 02/02/2025 10:26 AM T [facility] Comment:This is an appended report. These results have been appended to a previously preliminary verified report. Gram Stain Result Few Yeast(A) 02/02/2025 10:26 AM [facility] Comment:This is an appended report. These results have been appended to a previously preliminary verified report. Gram Stain Result Rare Gram positive cocci in pairs(A) 02/02/2025 10:26 AM T [facility] Comment:This is an appended report. These results have been appended to a previously preliminary verified report. Gram Stain Result Greater than 25 WBCS and less than 10 Epithelial cells(A) 02/02/2025 10:26 AM T [facility] Comment:This is an appended report. These results have been appended to a previously preliminary verified report. Sputum, expectorated Oropharyngeal structure / Unknown 01/30/2025 11:02 PM EDT 01/30/2025 11:06 PM EDT us Megan Boss MD LAB MICROBIOLOGY - GENERAL ORD ERABLES Final Result [facility] [address] [place] [address], * XR Chest 1 View (01/30/2025 2:30 PM EDT) Anatomical Region Laterality Modality Body Radiographic Leonora ging 01/30/2025 2:41 PM EDT Impressions 01/30/2025 2:55 PM EDT No infiltrates or effusions. -------- FINAL REPORT -------- Dictated By: Diana Mukherjee Dictated Date: 01/30/2025 14:41 ET Assigned Physician: Diana Mukherjee Reviewed and Electronically Signed By: Diana Mukherjee Signed Date: 01/30/2025 14:55 ET Workstation ID: [id number] Transcribed By: Self Edit Transcribed Date: 01/30/2025 14:41 ET Narrative 01/30/2025 2:55 PM EDT INDICATION: Shortness of breath FINDINGS: Single portable AP view of the chest obtained. No prior studies available for comparison. 1 cm nodular attenuation laterally in the right lower lung zone likely represents a compilation of shadows site of a true nodule. Lung stanley are hypoinflated. No focal infiltrates or effusions. Heart normal in size and shape. Bony structures are grossly intact and normal for the patient's age. Procedure Note Diana Mukherjee MD - 01/30/2025 INDICATION: Shortness of breath FINDINGS: Single portable AP view of the chest obtained. No prior studiesavailable for comparison. 1 cm nodular attenuation laterally in the right lower lung zone likelyrepresents a compilation of shadows site of a true nodule. Lung stanley arehypoinflated. No focal infiltrates or effusions. Heart normal in size and shape. Bony structures are grossly intact and normal for the patient's age. IMPRESSION: No infiltrates or effusions. -------- FINAL REPORT -------- Dictated By: Diana Mukherjee Dictated Date: 01/30/2025 14:41 ET Assigned Physician: Diana Mukherjee Reviewed and Electronically Signed By: Diana Mukherjee Signed Date: 01/30/2025 14:55 ET Workstation ID: [id number] Transcribed By: Self Edit Transcribed Date: 01/30/2025 14:41 ET Megan Boss MD IMG XR PROCEDURES Final Result * ECG 12 lead (01/30/2025 2:08 PM EDT) Only the most recent of4 resultswithin the time period is included. Ventricular Rate ECG 67 BPM GEMUSE Atrial Rate 67 BPM GEMUSE P-R Interval 134 ms GEMUSE QRS Duration 80 ms GEMUSE Q-T Interval 388 ms GEMUSE QTc 409 ms GEMUSE P Wave [place] 42 degrees GEMUSE R [place] -4 degrees GEMUSE T [place] 19 degrees GEMUSE ECG Interpretation Normal sinus rhythm Minimal voltage criteria for LVH, may be normal variant Nonspecific T wave abnormality Abnormal ECG When compared with ECG of 26-JAN-2025 11:00, ST no longer depressed in Lateral leads T wave inversion no longer evident in Lateral leads Confirmed by MOO PRESTON ([id number]) on 02/01/2025 8:09:38 AM GEMUSE 01/30/2025 2:08 PM EDT 02/01/2025 8:09 AM EDT us Megan Boss MD ECG ORDERABLES Final Result GEMUSE * (ABNORMAL) CBC auto differential (01/29/2025 5:13 AM EDT) Only the most recent of4 resultswithin the time period is included. WBC 5.8 4.8 - 10.8 [facility] LAB HEMETOLOGY METHOD 01/29/2025 6:30 AM EDT [facility] RBC 3.90 3.80 - 4.80 M/mcL LAB HEMETOLOGY METHOD 01/29/2025 6:30 AM EDT [facility] Hemoglobin 11.8 11.5 - 16.0 g/dL LAB HEMETOLOGY METHOD 01/29/2025 6:30 AM [facility] Hematocrit 37.2 35.0 - 47.0 % LAB HEMETOLOGY METHOD 01/29/2025 6:30 AM [facility] MCV 96.4 79.0 - 98.0 FL LAB HEMETOLOGY METHOD 01/29/2025 6:30 AM [facility] MCH 30.6 27.0 - 32.0 pcg LAB HEMETOLOGY METHOD 01/29/2025 6:30 AM [facility] MCHC 31.7(L) 32.0 - 37.0 g/dL LAB HEMETOLOGY METHOD 01/29/2025 6:30 AM [facility] RDW 13.7 11.0 - 15.0 % LAB HEMETOLOGY METHOD 01/29/2025 6:30 AM [facility] Platelets 186 130 - 400 K/mcL LAB HEMETOLOGY METHOD 01/29/2025 6:30 AM [facility] MPV 10.6 7.0 - 11.0 FL LAB HEMETOLOGY METHOD 01/29/2025 6:30 AM [facility] NRBC 0.0 <1.0 % LAB HEMETOLOGY METHOD 01/29/2025 6:30 AM [facility] NRBC Absolute 0.00 <0.10 K/mcL LAB HEMETOLOGY METHOD 01/29/2025 6:30 AM [facility] Neutrophils Relative 40.4 % LAB HEMETOLOGY METHOD 01/29/2025 6:30 AM [facility] Lymphocytes Relative 47.3 % LAB HEMETOLOGY METHOD 01/29/2025 6:30 AM [facility] Monocytes Relative 8.9 % LAB HEMETOLOGY METHOD 01/29/2025 6:30 AM EDT [facility] Eosinophils Relative 2.4 % LAB HEMETOLOGY METHOD 01/29/2025 6:30 AM EDT [facility] Basophils Relative 0.5 % LAB HEMETOLOGY METHOD 01/29/2025 6:30 AM EDT [facility] Immature Granulocytes Relative 0.5 % LAB HEMETOLOGY METHOD 01/29/2025 6:30 AM EDT [facility] Neutrophils Absolute 2.36 1.50 - 7.00 K/mcL LAB HEMETOLOGY METHOD 01/29/2025 6:30 AM EDT [facility] Lymphocytes Absolute 2.76 1.00 - 5.00 K/mcL LAB HEMETOLOGY METHOD 01/29/2025 6:30 AM EDT [facility] Monocytes Absolute 0.52 0.20 - 1.00 K/mcL LAB HEMETOLOGY METHOD 01/29/2025 6:30 AM EDT [facility] Eosinophils Absolute 0.14 0.00 - 0.50 K/mcL LAB HEMETOLOGY METHOD 01/29/2025 6:30 AM EDT [facility] Basophils Absolute 0.03 0.00 - 0.20 K/mcL LAB HEMETOLOGY METHOD 01/29/2025 6:30 AM EDT [facility] Immature Granulocytes Absolute 0.03 0.00 - 0.03 K/mcL LAB HEMETOLOGY METHOD 01/29/2025 6:30 AM EDT [facility] Blood Venous blood specimen / Unknown Venipuncture / Unknown 01/29/2025 5:13 AM EDT 01/29/2025 6:13 AM EDT us Demarcus Flowres MD LAB BLOOD ORDERABLES F inal Result [facility] [address] [place] [address], [place] [phone] * Phosphorus (01/29/2025 5:13 AM EDT) Only the most recent of2 resultswithin the time period is included. Phosphorus 2.6 2.5 - 4.5 mg/dL LAB CHEMISTRY METHOD 01/29/2025 7:19 AM EDT [facility] Blood Venous blood specimen / Unknown Venipuncture / Unknown 01/29/2025 5:13 AM EDT 01/29/2025 6:12 AM EDT us Demarcus Flowers MD LAB BLOOD ORDERABLES F inal Result Performing Organization Address City/[facility]/ZIP Co de Phone Number [facility] [address] [place] [address], [place] [phone] * Lactate (01/29/2025 5:13 AM EDT) [facility] Signature Lactate 1.6 0.4 - 2.0 mmol/L LAB CHEMISTRY METHOD 01/29/2025 6:46 AM EDT [facility] Blood Venous blood specimen / Unknown Venipuncture / Unknown 01/29/2025 5:13 AM EDT 01/29/2025 6:09 AM EDT us Demarcus Flowers MD LAB BLOOD ORDERABLES F inal Result [facility] [address] [place] [address], [place] [phone] * Cortisol 1 hour (01/28/2025 12:24 PM EDT) Cortisol, 60 Min 31.3 mcg/dL LAB CHEMISTRY METHOD 01/28/2025 1:04 PM EDT [facility] Blood Venous blood specimen / Unknown Venipuncture / Unknown 01/28/2025 12:24 PM EDT 01/28/2025 12:28 PM EDT Narrative [facility] - 01/28/2025 1:04 PM EDT Normal response at 60 minutes: Increase from baseline >=20 mcg/dL us Demarcus Flowers MD LAB BLOOD ORDERABLES F inal Result Performing Organization Address [facility] Co de Phone Number [facility] [address] [place] [address], [place] [phone] * Cortisol 30 min (01/28/2025 10:42 AM EDT) Cortisol, 30 Min 6.7 mcg/dL LAB CHEMISTRY METHOD 01/28/2025 11:26 AM EDT [facility] Blood Venous blood specimen / Unknown Venipuncture / Unknown 01/28/2025 10:42 AM EDT 01/28/2025 10:48 AM EDT Narrative [facility] - 01/28/2025 11:26 AM EDT Normal response at 30 minutes: Increase from baseline >=18 mcg/dL. us Demarcus Flowers MD LAB BLOOD ORDERABLES F inal Result Performing Organization Address [facility] Co de Phone Number [facility] [address] [place] [address], [place] [phone] * Cortisol baseline (01/28/2025 9:47 AM EDT) Cortisol, Base 7.7 mcg/dL LAB CHEMISTRY METHOD 01/28/2025 10:49 AM EDT [facility] Blood Venous blood specimen / Unknown Venipuncture / Unknown 01/28/2025 9:47 AM EDT 01/28/2025 9:52 AM EDT us Demarcus Flowers MD LAB BLOOD ORDERABLES F inal Result Performing Organization Address City/[facility]/ZIP Co de Phone Number [facility] [address] [place] [address], [place] [phone] * (ABNORMAL) C-reactive protein (01/28/2025 5:42 AM EDT) Only the most recent of2 resultswithin the time period is included. C-Reactive Protein 0.82(H) <=0.50 mg/dL LAB CHEMISTRY METHOD 01/28/2025 6:48 AM EDT [facility] Blood Venous blood specimen / Unknown Venipuncture / Unknown 01/28/2025 5:42 AM EDT 01/28/2025 6:09 AM EDT us Demarcus Flowers MD LAB BLOOD ORDERABLES F inal Result Performing Organization Address [facility] Co de Phone Number [facility] [address] [place] [address], [place] [phone] * Cortisol (01/28/2025 5:42 AM EDT) Cortisol 5.8 mcg/dL LAB CHEMISTRY METHOD 01/28/2025 8:40 AM EDT [facility] Blood Venous blood specimen / Unknown Venipuncture / Unknown 01/28/2025 5:42 AM EDT 01/28/2025 6:09 AM EDT Narrative [facility] - 01/28/2025 8:40 AM EDT CORTISOL REFERENCE RANGE 8 AM SPEC: 5.0-23.0 mcg/dL 4 PM SPEC: 3.0-16.0 mcg/dL 8 PM SPEC: <5.0 mcg/dL us Demarcus Flowers MD LAB BLOOD ORDERABLES F inal Result Performing Organization Address City/[facility]/ZIP Co de Phone Number [facility] [address] [place] [address], [place] [phone] * (ABNORMAL) Troponin I high sensitivity (01/27/2025 2:40 PM EDT) Only the most recent of5 resultswithin the time period is included. [facility] High Sensitivity Troponin I 60(H) <=54 ng/L LAB CHEMISTRY METHOD 01/27/2025 3:38 PM EDT [facility] Blood Venous blood specimen / Unknown Venipuncture / Unknown 01/27/2025 2:40 PM EDT 01/27/2025 2:53 PM EDT [facility] - 01/27/2025 3:38 PM EDT High levels of biotin in samples may falsely decrease hsTroponin values. Use caution when interpreting hsTroponin results in patients taking biotin who exhibit renal impairment (eGFR <60) or in patients taking more than 20 mg/day of biotin. Demarcus Flowers MD LAB BLOOD ORDERABLES F inal Result [facility] [address] [place] [address], [place] [phone] * (ABNORMAL) Urinalysis with reflex microscopic and culture (01/26/2025 1:39 PM EDT) Only the most recent of2 resultswithin the time period is included. [facility] Specific [place] Urine >1.045(H) 1.003 - 1.030 LAB URINALYSIS - AUTOMATED METHOD 01/26/2025 2:30 PM EDT [facility] pH, Urine 6.0 5.0 - 8.0 pH LAB URINALYSIS - AUTOMATED METHOD 01/26/2025 2:30 PM EDT [facility] Leukocytes, Urine Negative Negative LAB URINALYSIS - AUTOMATED METHOD 01/26/2025 2:30 PM EDT [facility] Nitrite, Urine Negative Negative LAB URINALYSIS - AUTOMATED METHOD 01/26/2025 2:30 PM [facility] Protein, Urine 30(A) <=Trace mg/dL LAB URINALYSIS - AUTOMATED METHOD 01/26/2025 2:30 PM [facility] Glucose, Urine >=1000(A) Negative mg/dL LAB URINALYSIS - AUTOMATED METHOD 01/26/2025 2:30 PM [facility] Ketones, Urine 15(A) Negative mg/dL LAB URINALYSIS - AUTOMATED METHOD 01/26/2025 2:30 PM [facility] Urobilinogen , Urine 1.0 0.2 - 1.0 mg/dL LAB URINALYSIS - AUTOMATED METHOD 01/26/2025 2:30 PM [facility] Bilirubin, Urine Negative Negative LAB URINALYSIS - AUTOMATED METHOD 01/26/2025 2:30 PM [facility] Blood, Urine Small(A) Negative LAB URINALYSIS - AUTOMATED METHOD 01/26/2025 2:30 PM [facility] RBC, Urine 15.1(H) 0 - 4 /HPF LAB URINALYSIS - AUTOMATED METHOD 01/26/2025 2:30 PM [facility] WBC, Urine 9.0(H) 0 - 4 /HPF LAB URINALYSIS - AUTOMATED METHOD 01/26/2025 2:30 PM [facility] Squamous Epithelial, Urine >100(H) 0 - 60 /LPF LAB URINALYSIS - AUTOMATED METHOD 01/26/2025 2:30 PM [facility] Bacteria, Urine Negative Negative /HPF LAB URINALYSIS - AUTOMATED METHOD 01/26/2025 2:30 PM [facility] Hyaline Casts, Urine 16.8(H) 0 - 3 /LPF LAB URINALYSIS - AUTOMATED METHOD 01/26/2025 2:30 PM [facility] Urine Urine specimen obtained by clean catch procedure / Unknown Non-blood Collection / Unknown 01/26/2025 1:39 PM EDT 01/26/2025 2:09 PM EDT us Ja Mcintyre DO LAB URINE ORDERABLES Final Res ult [facility] [address] [place] [address], [place] [phone] * [place] urine culture tube (01/26/2025 1:39 PM EDT) Only the most recent of2 resultswithin the time period is included. Extra Tube Hold for add-ons. 01/26/2025 4:01 PM EDT [facility] Comment:Auto resulted. Urine Urine specimen obtained by clean catch procedure / Unknown Non-blood Collection / Unknown 01/26/2025 1:39 PM EDT 01/26/2025 2:09 PM EDT Ja Mcintyre DO LAB URINE ORDERABLES Final Res ult Performing Organization Address [facility] Co de Phone Number [facility] [address] [place] [address], [place] [phone] * Culture urine (01/26/2025 1:39 PM EDT) Only the most recent of2 resultswithin the time period is included. Culture, Urine <10,000 cfu/ml, insignificant count, no further workup. 01/27/2025 8:34 AM EDT [facility] Urine Urine specimen obtained by clean catch procedure / Unknown Non-blood Collection / Unknown 01/26/2025 1:39 PM EDT 01/26/2025 2:30 PM EDT us Ja Mcintyre DO LAB MICROBIOLOGY - GENERAL ORD ERABLES Final Result Performing Organization Address City/[facility]/ZIP Co de Phone Number [facility] [address] [place] [address], [place] [phone] * Lactate, with reflex (01/26/2025 12:55 PM EDT) Only the most recent of2 resultswithin the time period is included. LACTIC ACID 2.0 0.4 - 2.0 mmol/L LAB CHEMISTRY METHOD 01/26/2025 1:34 PM EDT [facility] Blood Venous blood specimen / Unknown Venipuncture / Unknown 01/26/2025 12:55 PM EDT 01/26/2025 1:07 PM EDT us Ja Mcintyre DO LAB BLOOD ORDERABLES Final Res ult [facility] [address] [place] [address], [place] [phone] * CT Abdomen Pelvis w Contrast (01/26/2025 12:35 PM EDT) Anatomical Region Laterality Modality Body Computed Tomogra phy 01/26/2025 12:5 1 PM EDT Impressions 01/26/2025 1:05 PM EDT Findings could represent enterocolitis. Incidental findings as above. -------- FINAL REPORT -------- Dictated By: Vinod Thao Dictated Date: 01/26/2025 12:51 ET Assigned Physician: Vinod Thao Reviewed and Electronically Signed By: Vinod Thao Signed Date: 01/26/2025 13:05 ET Workstation ID: [id number] Transcribed By: Self Edit Transcribed Date: 01/26/2025 12:51 ET Narrative 01/26/2025 1:05 PM EDT PROCEDURE: CT ABDOMEN/PELVIS WITH CONTRAST INDICATION: abdominal pain TECHNIQUE: CT of the abdomen and pelvis following the intravenous administration of 90cc Isovue 370. Multiplanar reformats. The examination was performed utilizing dose reduction techniques. Total DLP 1146 COMPARISON: 08/06/2023 FINDINGS: LOWER THORAX: Coronary and valvular calcifications. Lung bases are clear. HEPATOBILIARY: Diffuse hepatic steatosis. Mild biliary prominence in setting of prior cholecystectomy. SPLEEN: No focal lesion. PANCREAS: No mass. There is stable ectasia of the central duct. ADRENALS: No nodules. KIDNEYS/URETERS: No hydronephrosis, stones, or solid mass. PELVIC ORGANS/BLADDER: Status post hysterectomy. PERITONEUM / RETROPERITONEUM: No ascites or free air. No retroperitoneal lymphadenopathy. VESSELS: Scattered atherosclerotic calcifications throughout the aorta and its major branches. No aneurysm. GI TRACT: Throughout the small bowel and colon nonspecific but can be seen in setting of enterocolitis. Scattered diverticula without superimposed acute inflammatory change present. There is fluid and minimal wall thickening of the distal appendix without significant inflammatory change. BONES AND SOFT TISSUES: Osteopenia and degenerative changes. There is no acute osseous abnormality. Injection granulomas over the buttocks. Procedure Note Vinod Thao MD - 01/26/2025 PROCEDURE: CT ABDOMEN/PELVIS WITH CONTRAST INDICATION: abdominal pain TECHNIQUE: CT of the abdomen and pelvis following the intravenousadministration of 90cc Isovue 370. Multiplanar reformats. The examinationwas performed utilizing dose reduction techniques. Total DLP 1146 COMPARISON: 08/06/2023 FINDINGS: LOWER THORAX: Coronary and valvular calcifications. Lung bases areclear. HEPATOBILIARY: Diffuse hepatic steatosis. Mild biliary prominence insetting of prior cholecystectomy. SPLEEN: No focal lesion. PANCREAS: No mass. There is stable ectasia of the central duct. ADRENALS: No nodules. KIDNEYS/URETERS: No hydronephrosis, stones, or solid mass. PELVIC ORGANS/BLADDER: Status post hysterectomy. PERITONEUM / RETROPERITONEUM: No ascites or free air. No retroperitoneallymphadenopathy. VESSELS: Scattered atherosclerotic calcifications throughout the aorta andits major branches. No aneurysm. GI TRACT: Throughout the small bowel and colon nonspecific but can be seenin setting of enterocolitis. Scattered diverticula without superimposedacute inflammatory change present. There is fluid and minimal wallthickening of the distal appendix without significant inflammatorychange. BONES AND SOFT TISSUES: Osteopenia and degenerative changes. There is noacute osseous abnormality. Injection granulomas over the buttocks. IMPRESSION: Findings could represent enterocolitis. Incidental findings as above. -------- FINAL REPORT -------- Dictated By: Vinod Thao Dictated Date: 01/26/2025 12:51 ET Assigned Physician: Vinod Thao Reviewed and Electronically Signed By: Vinod Thao Signed Date: 01/26/2025 13:05 ET Workstation ID: [id number] Transcribed By: Self Edit Transcribed Date: 01/26/2025 12:51 ET Julius DONOHUE IMG CT PROCEDURES Final Resul t * XR Chest 2 Views (01/26/2025 11:57 AM EDT) Only the most recent of2 resultswithin the time period is included. Anatomical Region Laterality Modality Body Radiographic Leonora ging 01/26/2025 12:0 3 PM EDT Impressions 01/26/2025 12:04 PM EDT FINDINGS/IMPRESSION: Normal heart size and pulmonary vascularity. Lungs are clear and costophrenic angles are sharp. No acute osseous abnormality. -------- FINAL REPORT -------- Dictated By: Vinod Thao Dictated Date: 01/26/2025 12:03 ET Assigned Physician: Vinod Thao Reviewed and Electronically Signed By: Vinod Thao Signed Date: 01/26/2025 12:04 ET Workstation ID: [id number] Transcribed By: Self Edit Transcribed Date: 01/26/2025 12:03 ET Narrative 01/26/2025 12:04 PM EDT XR CHEST 2 VIEWS INDICATION: dyspnea TECHNIQUE: XR CHEST 2 VIEWS COMPARISON: No priors available. Procedure Note Vinod Thao MD - 01/26/2025 XR CHEST 2 VIEWS INDICATION: dyspnea TECHNIQUE: XR CHEST 2 VIEWS COMPARISON: No priors available. IMPRESSION: FINDINGS/IMPRESSION: Normal heart size and pulmonary vascularity. Lungsare clear and costophrenic angles are sharp. No acute osseousabnormality. -------- FINAL REPORT -------- Dictated By: Vinod Thao Dictated Date: 01/26/2025 12:03 ET Assigned Physician: Vinod Thao Reviewed and Electronically Signed By: Vinod Thao Signed Date: 01/26/2025 12:04 ET Workstation ID: [id number] Transcribed By: Self Edit Transcribed Date: 01/26/2025 12:03 ET us Ja Mcintyre DO IMG XR PROCEDURES Final Result * Culture blood (01/26/2025 11:13 AM EDT) Only the most recent of2 resultswithin the time period is included. [facility] Culture, Blood No growth at 5 days LAB MICROBIOLOGY METHOD 01/31/2025 12:01 PM EDT [facility] Blood Venous blood specimen / Unknown Venipuncture / Unknown 01/26/2025 11:13 AM EDT 01/26/2025 11:21 AM EDT us Ja Mcintyre DO LAB MICROBIOLOGY - GENERAL ORD ERABLES Final Result Performing Organization Address [facility]/ZIP Co de Phone Number [facility] [address] [place] [address], [place] [phone] * B-type natriuretic peptide (01/26/2025 11:13 AM EDT) Only the most recent of2 resultswithin the time period is included. [facility] BNP 87 <=100 pcg/mL LAB CHEMISTRY METHOD 01/26/2025 12:02 PM EDT [facility] Blood Venous blood specimen / Unknown Venipuncture / Unknown 01/26/2025 11:13 AM EDT 01/26/2025 11:22 AM EDT us Ja Mcintyre DO LAB BLOOD ORDERABLES Final Res ult Performing Organization Address City/[facility]/ZIP Co de Phone Number [facility] [address] [place] [address], [place] [phone] * Respiratory virus panel molecular study (01/26/2025 10:58 AM EDT) Only the most recent of2 resultswithin the time period is included. [facility] Adenovirus Detection by PCR Not Detected Not Detected LAB MICROBIOLOGY METHOD 01/26/2025 12:32 PM EDT [facility] Influenza A PCR Not Detected Not Detected LAB MICROBIOLOGY METHOD 01/26/2025 12:32 PM EDT [facility] Influenza B PCR Not Detected Not Detected LAB MICROBIOLOGY METHOD 01/26/2025 12:32 PM EDT [facility] Coronavirus 229E Not Detected Not Detected LAB MICROBIOLOGY METHOD 01/26/2025 12:32 PM EDT [facility] Coronavirus [id number] Not Detected Not Detected LAB MICROBIOLOGY METHOD 01/26/2025 12:32 PM EDT [facility] Coronavirus OC43 Not Detected Not Detected LAB MICROBIOLOGY METHOD 01/26/2025 12:32 PM EDT [facility] Coronavirus [id number] Not Detected Not Detected LAB MICROBIOLOGY METHOD 01/26/2025 12:32 PM EDT [facility] Parainfluenza Virus 1 Not Detected Not Detected LAB MICROBIOLOGY METHOD 01/26/2025 12:32 PM EDT [facility] Parainfluenza Virus 2 Not Detected Not Detected LAB MICROBIOLOGY METHOD 01/26/2025 12:32 PM EDT [facility] Parainfluenza Virus 3 Not Detected Not Detected LAB MICROBIOLOGY METHOD 01/26/2025 12:32 PM EDT [facility] Parainfluenza Virus 4 Not Detected Not Detected LAB MICROBIOLOGY METHOD 01/26/2025 12:32 PM EDT [facility] RSV PCR Not Detected Not Detected LAB MICROBIOLOGY METHOD 01/26/2025 12:32 PM EDT [facility] Human Metapneumovirus A and B Not Detected Not Detected LAB MICROBIOLOGY METHOD 01/26/2025 12:32 PM EDT [facility] Rhinovirus/Entero virus Not Detected Not Detected LAB MICROBIOLOGY METHOD 01/26/2025 12:32 PM EDT [facility] Bordetella pertussis Not Detected Not Detected LAB MICROBIOLOGY METHOD 01/26/2025 12:32 PM EDT [facility] Bordetella parapertussis Not Detected Not Detected LAB MICROBIOLOGY METHOD 01/26/2025 12:32 PM EDT [facility] Mycoplasma pneumo by PCR Not Detected Not Detected LAB MICROBIOLOGY METHOD 01/26/2025 12:32 PM EDT [facility] Chlamydia pneumoniae Not Detected Not Detected LAB MICROBIOLOGY METHOD 01/26/2025 12:32 PM EDT [facility] SARS COV-2 Not Detected Not Detected LAB MICROBIOLOGY METHOD 01/26/2025 12:32 PM EDT [facility] Swab Both anterior nares / Unknown Non-blood Collection / Unknown 01/26/2025 10:58 AM EDT 01/26/2025 11:21 AM EDT Narrative [facility] - 01/26/2025 12:32 PM EDT Testing was performed using the [employer] Respiratory Pathogen PCR Assay. All results must be correlated with the clinical findings. Results should not be used as the sole basis for diagnosis. False Negative results may occur from the presence of sequence variants in the region targeted by the assay or the presence of inhibitors. Results may be affected by concurrent antiviral/antimicrobial therapy or levels of organisms that are below the limit of detection. Ja Mcintyre DO LAB MICROBIOLOGY - GENERAL ORD ERABLES Final Result [facility] [address] [place] [address], * CT Angio Chest wo and/or w Contrast (01/20/2025 2:04 PM EDT) Anatomical Region Laterality Modality Body Computed Tomogra phy 01/20/2025 2:11 PM EDT Impressions 01/20/2025 2:15 PM EDT No pulmonary embolism. No acute findings. Hepatic steatosis. -------- FINAL REPORT -------- Dictated By: Ronen Alvarez Dictated Date: 01/20/2025 14:11 ET Assigned Physician: Ronen Alvarez Reviewed and Electronically Signed By: Ronen Alvarez Signed Date: 01/20/2025 14:15 ET Workstation ID: [id number] Transcribed By: Self Edit Transcribed Date: 01/20/2025 14:11 ET Narrative 01/20/2025 2:15 PM EDT PROCEDURE: CT pulmonary angiogram. HISTORY: PE suspected, high prob. TECHNIQUE: CT of the chest with intravenous contrast administration with pulmonary angiogram protocol. Coronal and sagittal reformats and MIP reconstructions were created. Dose length product: 702 mGy-cm. Contrast dose: 90 mL ISOVUE-370. COMPARISON: FINDINGS: LUNGS/PLEURA: The central airways are clear and normal in caliber. Thin band of scarring in the anterior right lower lobe with mild tenting of the major fissure. No pleural effusion or pneumothorax. MEDIASTINUM/GIUSEPPE: No mass or lymphadenopathy. VASCULATURE: Normal caliber pulmonary arteries. No pulmonary embolism. Moderate atherosclerotic calcifications of the great vessels. CARDIAC: Normal heart size. Mild aortic annular, mitral annular, and coronary artery calcification. CHEST WALL: No axillary or supraclavicular lymphadenopathy. LIMITED ABDOMEN: Moderate hepatic steatosis. Cholecystectomy. Atherosclerotic calcifications. BONES: Degenerative changes of the spine and shoulders. Procedure Note Ronen Alvarez MD - 01/20/2025 PROCEDURE: CT pulmonary angiogram. HISTORY: PE suspected, high prob. TECHNIQUE: CT of the chest with intravenous contrast administration withpulmonary angiogram protocol. Coronal and sagittal reformats and MIPreconstructions were created. Dose length product: 702 mGy-cm. Contrast dose: 90 mL ISOVUE-370. COMPARISON: FINDINGS: LUNGS/PLEURA: The central airways are clear and normal in caliber. Thinband of scarring in the anterior right lower lobe with mild tenting of themajor fissure. No pleural effusion or pneumothorax. MEDIASTINUM/GIUSEPPE: No mass or lymphadenopathy. VASCULATURE: Normal caliber pulmonary arteries. No pulmonary embolism.Moderate atherosclerotic calcifications of the great vessels. CARDIAC: Normal heart size. Mild aortic annular, mitral annular, andcoronary artery calcification. CHEST WALL: No axillary or supraclavicular lymphadenopathy. LIMITED ABDOMEN: Moderate hepatic steatosis. Cholecystectomy.Atherosclerotic calcifications. BONES: Degenerative changes of the spine and shoulders. IMPRESSION: No pulmonary embolism. No acute findings. Hepatic steatosis. -------- FINAL REPORT -------- Dictated By: Ronen Alvarez Dictated Date: 01/20/2025 14:11 ET Assigned Physician: Ronen Alvarez Reviewed and Electronically Signed By: Ronen Alvarez Signed Date: 01/20/2025 14:15 ET Workstation ID: [id number] Transcribed By: Self Edit Transcribed Date: 01/20/2025 14:11 ET Mayra DONOHUE IMG CT PROCEDURES Final Resul t * (ABNORMAL) Beta hydroxybutyrate (01/20/2025 10:19 AM EDT) [facility] Beta-Hydroxybu tyrate 4.6(H) 0.2 - 2.8 mg/dL LAB CHEMISTRY METHOD 01/20/2025 11:47 AM EDT [facility] Blood Venous blood specimen / Unknown Venipuncture / Unknown 01/20/2025 10:19 AM EDT 01/20/2025 10:25 AM EDT Savanah Smith DO LAB BLOOD ORDERABLES Nikkie l Result Performing Organization Address City/[facility]/ZIP Co de Phone Number [facility] [address] [place] [address], [place] [phone] * Lipase (01/20/2025 10:19 AM EDT) [facility] Lipase 19 13 - 75 unit/L LAB CHEMISTRY METHOD 01/20/2025 11:08 AM EDT [facility] Blood Venous blood specimen / Unknown Venipuncture / Unknown 01/20/2025 10:19 AM EDT 01/20/2025 10:25 AM EDT Francisco J Cunningham MD LAB BLOOD ORDERABLES Final Res ult Performing Organization Address City/[facility]/ZIP Co de Phone Number [facility] [address] [place] [address], [place] [phone] * (ABNORMAL) Lipid panel (04/20/2024) [facility] LDL/HDL Ratio 3 0 - 4 Triglycerides 158(A) 0 - 150 mg/dL Cholesterol 140 0 - 200 mg/dL HDL 54 >=40 mg/dL LDL Cholesterol 55 0 - 100 mg/dL Blood Venous blood specimen / Unknown Historical Provider MD LAB BLOOD ORDERABLES Nikkie l Result * Urine Albumin Creatinine Ratio (12/02/2023) [facility] Urine Albumin Creatinine Ratio abstracted [facility] Provider MD HEALTH MAINTENANCE Final Result * Diabetes Foot Exam (09/27/2023) [facility] Diabetes: Annual Foot Exam abstracted Historical Provider HEALTH MAINTENANCE Final Result * DXA BONE DENSITY STUDY 1+ SITS AXIAL SKEL (09/02/2023 9:37 AM EST) Anatomical Region Laterality Modality Bone Densitometr y 04/23/2023 10:3 2 AM EDT Narrative 09/02/2023 8:57 PM EST STUDY: DUAL ENERGY X-RAY ABSORPTIOMETRY / DXA REASON FOR EXAM: Female, 82 years old osteoporosis TECHNIQUE: Bone Mineral Density (BMD) measurements of the lumbar spine and left hip were obtained using HoloSunfire Discovery W (S/N [id number]). COMPARISON: None FINDINGS: L1-L4 BMD: 0.920 g/cm2 L1-L4 T score: -1.2. This corresponds to osteopenia. This represents a 7.8* % increase in bone density compared with prior exam from January 09, 2014. Left femoral neck BMD: 0.542 g/cm2 Left femoral neck T score: -2.8. This corresponds to osteoporosis. Left total hip BMD: 0.789 g/cm2 Left total hip T score: -1.3. This corresponds to osteopenia. This represents a -3.0 % decrease in bone density compared with prior exam from January 09, 2014. * - Indicates a statistically significant change. IMPRESSION: IMPRESSION: Osteoporosis Reference Information: The T-score is the number of standard deviations above or below the standard which is normal for young adults at their peak bone mineral density. The World Health Organization (WHO) interprets the T-scores as follows: At or above -1 SD Normal bone density Between -1 and -2.5 SD Osteopenia At or below -2.5 SD Osteoporosis Procedure Note Leydi Mejia MD - 03/13/2024 STUDY: DUAL ENERGY X-RAY ABSORPTIOMETRY / DXA REASON FOR EXAM: Female, 82 years old osteoporosis TECHNIQUE: Bone Mineral Density (BMD) measurements of the lumbar spineand left hip were obtained using [employer] Discovery W (S/N [id number]). COMPARISON: None FINDINGS: L1-L4 BMD: 0.920 g/cm2 L1-L4 T score: -1.2. This corresponds to osteopenia. This represents a 7.8* % increase in bone density compared with prior examfrom January 09, 2014. Left femoral neck BMD: 0.542 g/cm2 Left femoral neck T score: -2.8. This corresponds to osteoporosis. Left total hip BMD: 0.789 g/cm2 Left total hip T score: -1.3. This corresponds to osteopenia. This represents a -3.0 % decrease in bone density compared with prior examfrom January 09, 2014. * - Indicates a statistically significant change. IMPRESSION: IMPRESSION: Osteoporosis Reference Information: The T-score is the number of standard deviations above or below thestandard which is normal for young adults at their peak bone mineral density. The World HealthOrganization (WHO) interprets the T-scores as follows: At or above -1 SD Normal bone density Between -1 and -2.5 SD Osteopenia At or below -2.5 SD Osteoporosis Candelario Marsh MD IM DXA PROCEDURES Final Result from Last 3 Months or Most Recently Relevant to Health Maintenance Insurance [employer] - [place] MEDICARE ADVANTAGE Advance Directives Documents on File Type Date Recorded Patient Web Communications Specialist Expl anation Advance Directives and Living Will 02/01/2025 4:35 PM PROXY Advance Directives and Living Will 02/01/2025 4:34 PM MOLST Health Care Decision (hx) 12/31/2023 AD WHITE DIRECTIVE Health Care Decision (hx) 12/31/2023 AD WHITE DIRECTIVE Health Care Decision (hx) 12/31/2023 AD WHITE DIRECTIVE Health Care Decision (hx) 12/09/2023 HE ALTH CARE PROXY Health Care Decision (hx) 12/09/2023 HE ALTH CARE PROXY Health Care Decision (hx) 12/09/2023 HE ALTH CARE PROXY Health Care Decision (hx) 12/09/2023 AD WHITE DIRECTIVE Health Care Decision (hx) 12/09/2023 HE ALTH CARE PROXY * Full Code - Default (Latest Code Status on File) Date Activated Date Inactivated Comments 01/26/2025 3:23 PM 01/31/2025 2:29 PM This is order is used when code status has not been discussed with the patient, or code status is otherwise unknown/unconfirmed To update the patient's code status, place a code status order. Do not modify or discontinue any currently active code status orders. Care Teams Shingle Catcher Relationship Specialty Start Date End Date Kristy Cedillo MD [address] [place] [phone] PCP - General Internal Medicine 03/02/25
--- OUTSIDE RECORDS SUMMARY | 2025-04-05 15:57 | XMS_ITS ---
Author Organization [address] [place] [address] [place] [phone] Phone Care Team Providers Care Thread Inspector Name Role Phone Kristy Cedillo MD Primary Care Provider [phone] Community Health Worker Program Status:Identified (Enrolling) Start date:03/29/2025 Enrollment reason:Identified using referral data Overview Community Health Worker Program Case Team Name Relationship Phone Tamiko Workman Community Health Worker(Responsi ble Staff) Continued Care and Services Coordination
--- OUTSIDE RECORDS SUMMARY | 2025-04-05 15:58 | XMS_ITS | Encounter Summary ---
Author Organization [employer] Address [address] [place] [address] Care Team Providers Care Aluminum Fabrication Supervisor Name Role Phone Kristy Cedillo MD Primary Care Provider [phone] Encounter Details Date Type Department Care Team (Late st Contact Info) Description 02/10/2025 Lab Requisition [facility] [address] [facility] [place] [phone] Jelena Kang MD [address] [id number] Vitamin D deficiency, unspecified; Essential (primary) hypertension; Type 2 diabetes mellitus without complications (CMS/HCC V24, CMS/HCC V28); Age-related osteoporosis without current pathological fracture Social History Tobacco Use Types Packs/Day Years [...] Record ed Within the last 3 months, kam buck many times did you visit the emergency [...] for your loved ones. For example, child center assistant or elderly care for an older adult? [...] AM EDT Office Visit Internal Medicine - [address] [phone] Linette Regan, TORRI [address] [place] [address] 04/20/2025 1:30 PM EDT Medication Management Adult Medicine - [place] [address] [place] [phone] Mary Becker, PharmD [address] [place], [place] 05/22/2025 10:40 AM EDT Office Visit Neurology - [address] [place] [phone] Eddy Langley MD [facility] [address] [address] 06/15/2025 10:40 AM EST Office Visit Gastroenterology - [place] [address] [facility] 175 [facility] [address] [place] [phone] Marlen Castro, TORRI [address] [facility] [address] [place] [address] 07/10/2025 9:00 AM EST Procedure visit Urogynecology - [place] [address] [place] [phone] Kamilah Mcconnell MD [address] [place] [address] [address] [place] [address] 07/30/2025 12:00 PM EST Office Visit Internal Medicine - [address] [phone] Kristy Cedillo MD [address] [place] [address] documented as of this encounter Procedures Procedure Name Priority Date/Time Associated Diagnosis Comments COMPLETE BLOOD COUNT Routine 02/12/2025 10:25 AM EDT Vitamin D deficiency, unspecified Essential (primary) hypertension Type 2 diabetes mellitus without complications ([facility] V24, [facility] V28) Age-related osteoporosis without current pathological fracture BASIC METABOLIC PANEL Routine 02/12/2025 10:25 AM EDT Vitamin D deficiency, unspecified Essential (primary) hypertension Type 2 diabetes mellitus without complications ([facility] V24, [facility] V28) Age-related osteoporosis without current pathological fracture documented in this encounter Results * (ABNORMAL) Basic metabolic panel (02/12/2025 10:25 AM EDT) Sodium 141 133 - 145 mmol/L LAB CHEMISTRY METHOD 02/12/2025 4:45 PM [facility] Potassium 4.0 3.5 - 5.5 mmol/L LAB CHEMISTRY METHOD 02/12/2025 4:45 PM [facility] Chloride 107 96 - 110 mmol/L LAB CHEMISTRY METHOD 02/12/2025 4:45 PM [facility] CO2 27 21 - 32 mmol/L LAB CHEMISTRY METHOD 02/12/2025 4:45 PM [facility] Anion Gap 7 3 - 11 LAB CHEMISTRY METHOD 02/12/2025 4:45 PM [facility] Glucose 147(H) 70 - 100 mg/dL LAB CHEMISTRY METHOD 02/12/2025 4:45 PM [facility] BUN 7 5 - 25 mg/dL LAB CHEMISTRY METHOD 02/12/2025 4:45 PM [facility] Creatinine 0.61 0.50 - 1.10 mg/dL LAB CHEMISTRY METHOD 02/12/2025 4:45 PM [facility] eGFR 88 >=60 mL/min/1. 73m2 LAB CHEMISTRY METHOD 02/12/2025 4:45 PM EDT [facility] Comment:Calculation based on the Chronic Kidney Disease Epidemiology Collaboration (CKD-EPI) equation refit without adjustment for race. BUN/Creatinine Ratio 11.5 LAB CHEMISTRY METHOD 02/12/2025 4:45 PM EDT [facility] Calcium 9.5 8.5 - 10.5 mg/dL LAB CHEMISTRY METHOD 02/12/2025 4:45 PM EDT [facility] Blood Venous blood specimen / Unknown Venipuncture / Unknown 02/12/2025 10:25 AM EDT 02/12/2025 11:58 AM EDT us Jelena Kang MD LAB BLOOD ORDERABLES Fin al Result [facility] [address] [place] [address], * (ABNORMAL) Complete blood count (02/12/2025 10:25 AM EDT) WBC 4.4(L) 4.8 - 10.8 K/mcL LAB HEMETOLOGY METHOD 02/12/2025 1:13 PM EDT [facility] RBC 4.40 3.80 - 4.80 M/mcL LAB HEMETOLOGY METHOD 02/12/2025 1:13 PM EDT [facility] Hemoglobin 12.9 11.5 - 16.0 g/dL LAB HEMETOLOGY METHOD 02/12/2025 1:13 PM EDT [facility] Hematocrit 41.9 35.0 - 47.0 % LAB HEMETOLOGY METHOD 02/12/2025 1:13 PM EDT [facility] MCV 95.7 79.0 - 98.0 FL LAB HEMETOLOGY METHOD 02/12/2025 1:13 PM EDT [facility] MCH 29.5 27.0 - 32.0 pcg LAB HEMETOLOGY METHOD 02/12/2025 1:13 PM EDT [facility] MCHC 30.8(L) 32.0 - 37.0 g/dL LAB HEMETOLOGY METHOD 02/12/2025 1:13 PM EDT [facility] RDW 13.9 11.0 - 15.0 % LAB HEMETOLOGY METHOD 02/12/2025 1:13 PM EDT [facility] Platelets 308 130 - 400 K/mcL LAB HEMETOLOGY METHOD 02/12/2025 1:13 PM EDT [facility] MPV 10.3 7.0 - 11.0 FL LAB HEMETOLOGY METHOD 02/12/2025 1:13 PM EDT [facility] NRBC 0.0 <1.0 % LAB HEMETOLOGY METHOD 02/12/2025 1:13 PM EDT [facility] NRBC Absolute 0.00 <0.10 K/mcL LAB HEMETOLOGY METHOD 02/12/2025 1:13 PM EDT [facility] Blood Venous blood specimen / Unknown Venipuncture / Unknown 02/12/2025 10:25 AM EDT 02/12/2025 11:58 AM EDT Jelena Kang MD LAB BLOOD ORDERABLES Fin al Result [facility] [address] [place] [address], documented in this encounter Visit Diagnoses Diagnosis Vitamin D deficiency, unspecified Essential (primary) hypertension Unspecified essential hypertension Type 2 diabetes mellitus without complications (CMS/HCC V24, CMS/HCC V28) Age-related osteoporosis without current pathological fracture documented in this encounter Care Teams Aluminum Fabrication Supervisor Relationship Specialty Start Date End Date Kristy Cedillo MD [address] [place] [address] PCP - General Internal Medicine 03/02/25 documented as of this encounter
--- OUTSIDE RECORDS SUMMARY | 2025-04-05 15:58 | XMS_ITS | Encounter Summary ---
Author Organization [employer] Address [address] [place] [address] Care Team Providers Care Hazardous Substances Engineer Name Role Phone Kristy Cedillo MD Primary Care Provider [phone] Encounter Details Date Type Department Care Team (Late st Contact Info) Description 02/02/2025 Lab Requisition [facility] - Main Lab 299 [facility] [place] [phone] Jelena Kang MD [address] [id number] Vitamin D deficiency, unspecified; Essential (primary) hypertension; [...] the emergency department for your medical care? 3 01/26/2025 Health Literacy Answer Date Recorded How often [...] care, and air conditioning / heating? Not very hard 01/26/2025 Transportation Answer Date Recorded Has the lack of transportati on kept you from meetings, work, or from getting things needed for daily living? No Has the lack of transportati on kept you from medical appointments or from getting medications? No 01/26/2025 Social Isolation Answer Date Recorded How often do you feel lonely or isolated from th ose around you? Never 01/26/2025 Food Risk Answer Date Recorded Within the past 12 months we worried whether our food would run out before we got money to buy more. Never true 01/26/2025 Within the past 12 months th e food we bought just didn't last and we didn't have money to get more. Never true 01/26/2025 Dependent Care Answer Date Recorded Do you need help finding or paying for care for your loved ones. For example, early childhood director or elderly care for an older adult? No 01/26/2025 Education Answer Date Recorded Do you think completing more education or training, like finishing a GED, going to college, or learning a trade, would be helpful for you? No 01/26/2025 Employment and Income Answer Date Recor ded During the last four weeks, have you been actively looking for work? No 01/26/2025 Living Situation Answer Date Recorded What is your living situation? 0 01/26/2025 Interpersonal Safety Answer Date Record ed Physical [...] AM EDT Office Visit Internal Medicine - [address] [phone] Linette Regan, TORRI 305 [place] [address] 04/20/2025 1:30 PM EDT Medication Management Adult Medicine - [place] [address] [place] [address] Mary Becker, PharmD 444 [place], [place] 05/22/2025 10:40 AM EDT Office Visit Neurology - [address] [place] [phone] Eddy Langley MD [address] [address] 06/15/2025 10:40 AM EST Office Visit Gastroenterology - [place] 175 [facility] 175 [facility] 200 [place] [phone] Marlen Castro, TORRI 175 [facility] 200 [place] [address] 07/10/2025 9:00 AM EST Procedure visit Urogynecology - [place] 444 [place] [address] Kamilah Mcconnell MD [address] [place] [address] 205 [place] [address] 07/30/2025 12:00 PM EST Office Visit Internal Medicine - [address] [phone] Kristy Cedillo MD [address] [place] [address] documented as of this encounter Procedures Procedure Name Priority Date/Time Associated Diagnosis Comments COMPLETE BLOOD COUNT Routine 02/05/2025 8:36 AM EDT Vitamin D deficiency, unspecified Essential (primary) hypertension Type 2 diabetes mellitus without complications ([facility] V24, [facility] V28) Age-related osteoporosis without current pathological fracture BASIC METABOLIC PANEL Routine 02/05/2025 8:36 AM EDT Vitamin D deficiency, unspecified Essential (primary) hypertension Type 2 diabetes mellitus without complications ([facility] V24, [facility] V28) Age-related osteoporosis without current pathological fracture documented in this encounter Results * (ABNORMAL) Basic metabolic panel (02/05/2025 8:36 AM EDT) Sodium 142 133 - 145 mmol/L LAB CHEMISTRY METHOD 02/05/2025 3:23 PM [facility] Potassium 4.1 3.5 - 5.5 mmol/L LAB CHEMISTRY METHOD 02/05/2025 3:23 PM [facility] Chloride 107 96 - 110 mmol/L LAB CHEMISTRY METHOD 02/05/2025 3:23 PM [facility] CO2 29 21 - 32 mmol/L LAB CHEMISTRY METHOD 02/05/2025 3:23 PM [facility] Anion Gap 6 3 - 11 LAB CHEMISTRY METHOD 02/05/2025 3:23 PM [facility] Glucose 194(H) 70 - 100 mg/dL LAB CHEMISTRY METHOD 02/05/2025 3:23 PM [facility] BUN 8 5 - 25 mg/dL LAB CHEMISTRY METHOD 02/05/2025 3:23 PM [facility] Creatinine 0.62 0.50 - 1.10 mg/dL LAB CHEMISTRY METHOD 02/05/2025 3:23 PM [facility] eGFR 87 >=60 mL/min/1. 73m2 LAB CHEMISTRY METHOD 02/05/2025 3:23 PM EDT [facility] Comment:Calculation based on the Chronic Kidney Disease Epidemiology Collaboration (CKD-EPI) equation refit without adjustment for race. BUN/Creatinine Ratio 12.9 LAB CHEMISTRY METHOD 02/05/2025 3:23 PM EDT [facility] Calcium 9.1 8.5 - 10.5 mg/dL LAB CHEMISTRY METHOD 02/05/2025 3:23 PM EDT [facility] Blood Venous blood specimen / Unknown Venipuncture / Unknown 02/05/2025 8:36 AM EDT 02/05/2025 11:02 AM EDT us Jelena Kang MD LAB BLOOD ORDERABLES Fin al Result [facility] 299 [place] [address], * (ABNORMAL) Complete blood count (02/05/2025 8:36 AM EDT) WBC 4.3(L) 4.8 - 10.8 K/mcL LAB HEMETOLOGY METHOD 02/05/2025 11:28 AM [facility] RBC 4.00 3.80 - 4.80 M/mcL LAB HEMETOLOGY METHOD 02/05/2025 11:28 AM [facility] Hemoglobin 11.7 11.5 - 16.0 g/dL LAB HEMETOLOGY METHOD 02/05/2025 11:28 AM [facility] Hematocrit 38.3 35.0 - 47.0 % LAB HEMETOLOGY METHOD 02/05/2025 11:28 AM [facility] MCV 96.2 79.0 - 98.0 FL LAB HEMETOLOGY METHOD 02/05/2025 11:28 AM [facility] MCH 29.4 27.0 - 32.0 pcg LAB HEMETOLOGY METHOD 02/05/2025 11:28 AM EDT [facility] MCHC 30.5(L) 32.0 - 37.0 g/dL LAB HEMETOLOGY METHOD 02/05/2025 11:28 AM EDT [facility] RDW 14.6 11.0 - 15.0 % LAB HEMETOLOGY METHOD 02/05/2025 11:28 AM EDT [facility] Platelets 274 130 - 400 K/mcL LAB HEMETOLOGY METHOD 02/05/2025 11:28 AM EDT [facility] MPV 10.2 7.0 - 11.0 FL LAB HEMETOLOGY METHOD 02/05/2025 11:28 AM EDT [facility] NRBC 0.0 <1.0 % LAB HEMETOLOGY METHOD 02/05/2025 11:28 AM EDT [facility] NRBC Absolute 0.00 <0.10 K/mcL LAB HEMETOLOGY METHOD 02/05/2025 11:28 AM EDT [facility] Blood Venous blood specimen / Unknown Venipuncture / Unknown 02/05/2025 8:36 AM EDT 02/05/2025 11:02 AM EDT Jelena Kang MD LAB BLOOD ORDERABLES Fin al Result [facility] [address] [place] [address], documented in this encounter Visit Diagnoses Diagnosis Vitamin D deficiency, unspecified Essential (primary) hypertension Unspecified essential hypertension Type 2 diabetes mellitus without complications (CMS/HCC V24, CMS/HCC V28) Age-related osteoporosis without current pathological fracture documented in this encounter Care Teams Hazardous Substances Engineer Relationship Specialty Start Date End Date Kristy Cedillo MD [address] [place] [address] PCP - General Internal Medicine 03/02/25 documented as of this encounter
--- OUTSIDE RECORDS SUMMARY | 2025-04-05 15:58 | XMS_ITS | Encounter Summary ---
Author Organization [employer] Address [address] [place] [address] Care Team Providers Care Mule Driver Name Role Phone Kristy Cedillo MD Primary Care Provider [phone] Encounter Details Date Type Department Care Team (Late st Contact Info) Description 02/01/2025 Lab Requisition [facility] - Main Lab 299 [facility] [place] [phone] Jelena Kang MD [address] [phone] Osteopetrosis; Type 2 diabetes mellitus without complications (CMS/HCC V24, CMS/HCC V28); Essential (primary) hypertension; Other cerebrovascular disease; Vitamin D deficiency, unspecified Social History Tobacco Use Types Packs/Day Years [...] for your loved ones. For example, child protection specialist or elderly care for an older adult? [...] AM EDT Office Visit Internal Medicine - [address] [phone] Linette Regan, TORRI 305 [place] [address] 04/20/2025 1:30 PM EDT Medication Management Adult Medicine - [place] [address] [place] [address] Mary Becker, PharmD 444 [place], [place] 05/22/2025 10:40 AM EDT Office Visit Neurology - [address] [place] [phone] Eddy Langley MD [address] [address] 06/15/2025 10:40 AM EST Office Visit Gastroenterology - [place] 175 [facility] [address] [facility] 200 [place] [phone] Marlen Castro, TORRI 175 [facility] 200 [place] [address] 07/10/2025 9:00 AM EST Procedure visit Urogynecology - [place] 444 [place] [address] Kamilah Mcconnell MD [address] [place] [address] 205 [place] [address] 07/30/2025 12:00 PM EST Office Visit Internal Medicine - [address] [phone] Kristy Cedillo MD [address] [place] [address] documented as of this encounter Procedures Procedure Name Priority Date/Time Associated Diagnosis Comments VITAMIN D 25 HYDROXY Routine 02/01/2025 7:28 [...] Other cerebrovascular disease Vitamin D deficiency, unspecified HEMOGLOBIN A1C Routine 02/01/2025 7:28 AM EDT [...] Other cerebrovascular disease Vitamin D deficiency, unspecified documented in this encounter Results * (ABNORMAL) Hemoglobin A1c (02/01/2025 7:28 AM EDT) [facility] Hemoglobin A1C 11.0(H) <6.5 % LAB CHEMISTRY METHOD 02/01/2025 1:[address] [facility] Mean Bld Glu Estim. 269 mg/dL LAB CHEMISTRY METHOD 02/01/2025 1:[address] [facility] Blood Venous blood specimen / Unknown Venipuncture / Unknown 02/01/2025 7:28 AM EDT 02/01/2025 10:22 AM EDT Jelena Kang MD LAB BLOOD ORDERABLES Fin al Result Performing Organization Address [facility]/ZIP Co de Phone Number [facility] [address] [place] [address], * Vitamin D 25 hydroxy (02/01/2025 7:28 AM EDT) [facility] Vit D, 25-Hydroxy 38.5 30.0 - 80.0 ng/mL LAB CHEMISTRY METHOD 02/01/2025 2:[address] [facility] Blood Venous blood specimen / Unknown Venipuncture / Unknown 02/01/2025 7:28 AM EDT 02/01/2025 10:22 AM EDT Jelena Kang MD LAB BLOOD ORDERABLES Fin al Result [facility] [address] [place] [address], [place] [phone] * (ABNORMAL) Folate (02/01/2025 7:28 AM EDT) [facility] Folate 19.8(H) 2.8 - 17.0 ng/ml LAB CHEMISTRY METHOD 02/01/2025 1:[address] [facility] Blood Venous blood specimen / Unknown Venipuncture / Unknown 02/01/2025 7:28 AM EDT 02/01/2025 10:22 AM EDT Jelena Kang MD LAB BLOOD ORDERABLES Fin al Result Performing Organization Address [facility]/ZIP Co de Phone Number [facility] [address] [place] [address], [place] [phone] * Magnesium (02/01/2025 7:28 AM EDT) [facility] Magnesium 2.0 1.9 - 2.6 mg/dL LAB CHEMISTRY METHOD 02/01/2025 1:[address] [facility] Blood Venous blood specimen / Unknown Venipuncture / Unknown 02/01/2025 7:28 AM EDT 02/01/2025 10:22 AM EDT Jelena Kang MD LAB BLOOD ORDERABLES Fin al Result Performing Organization Address [facility] de Phone Number [facility] [address] [place] [address], [place] [phone] * (ABNORMAL) Vitamin B12 (02/01/2025 7:28 AM EDT) [facility] Vitamin B-12 1,337(H) 250 - 900 pcg/mL LAB CHEMISTRY METHOD 02/01/2025 1:[address] [facility] Blood Venous blood specimen / Unknown Venipuncture / Unknown 02/01/2025 7:28 AM EDT 02/01/2025 10:22 AM EDT Jelena Kang MD LAB BLOOD ORDERABLES Fin al Result Performing Organization Address City/[facility]/ZIP Co de Phone Number [facility] [address] [place] [address], [place] [phone] * (ABNORMAL) Comprehensive metabolic panel (02/01/2025 7:28 AM EDT) Sodium 142 133 - 145 mmol/L LAB CHEMISTRY METHOD 02/01/2025 1:33 PM [facility] Potassium 4.2 3.5 - 5.5 mmol/L LAB CHEMISTRY METHOD 02/01/2025 1:33 PM [facility] Chloride 110 96 - 110 mmol/L LAB CHEMISTRY METHOD 02/01/2025 1:33 PM [facility] CO2 27 21 - 32 mmol/L LAB CHEMISTRY METHOD 02/01/2025 1:33 PM [facility] Anion Gap 5 3 - 11 LAB CHEMISTRY METHOD 02/01/2025 1:33 PM [facility] Glucose 112(H) 70 - 100 mg/dL LAB CHEMISTRY METHOD 02/01/2025 1:33 PM [facility] BUN 4(L) 5 - 25 mg/dL LAB CHEMISTRY METHOD 02/01/2025 1:33 PM [facility] Creatinine 0.52 0.50 - 1.10 mg/dL LAB CHEMISTRY METHOD 02/01/2025 1:33 PM [facility] eGFR 91 >=60 mL/min/1. 73m2 LAB CHEMISTRY METHOD 02/01/2025 1:33 PM [facility] Comment:Calculation based on the Chronic Kidney Disease Epidemiology Collaboration (CKD-EPI) equation refit without adjustment for race. BUN/Creatinine Ratio 7.7 LAB CHEMISTRY METHOD 02/01/2025 1:33 PM [facility] Calcium 8.6 8.5 - 10.5 mg/dL LAB CHEMISTRY METHOD 02/01/2025 1:33 PM [facility] AST (SGOT) 19 10 - 42 unit/L LAB CHEMISTRY METHOD 02/01/2025 1:33 PM [facility] ALT (SGPT) 31 10 - 60 unit/L LAB CHEMISTRY METHOD 02/01/2025 1:33 PM [facility] Alkaline Phosphatase 98 42 - 121 unit/L LAB CHEMISTRY METHOD 02/01/2025 1:[address] [facility] Total Protein 5.1(L) 6.0 - 8.0 g/dL LAB CHEMISTRY METHOD 02/01/2025 1:[address] [facility] Albumin 2.4(L) 3.2 - 5.0 g/dL LAB CHEMISTRY METHOD 02/01/2025 1:[address] [facility] Total Bilirubin 0.4 0.0 - 1.4 mg/dL LAB CHEMISTRY METHOD 02/01/2025 1:[address] [facility] Blood Venous blood specimen / Unknown Venipuncture / Unknown 02/01/2025 7:28 AM EDT 02/01/2025 10:22 AM EDT Jelena Kang MD LAB BLOOD ORDERABLES Fin al Result [facility] [address] [place] [address], * (ABNORMAL) Complete blood count (02/01/2025 7:28 AM EDT) WBC 5.4 4.8 - 10.8 K/mcL LAB HEMETOLOGY METHOD 02/01/2025 1:[address] [facility] RBC 3.80 3.80 - 4.80 M/mcL LAB HEMETOLOGY METHOD 02/01/2025 1:[address] [facility] Hemoglobin 11.2(L) 11.5 - 16.0 g/dL LAB HEMETOLOGY METHOD 02/01/2025 1:[address] [facility] Hematocrit 36.5 35.0 - 47.0 % LAB HEMETOLOGY METHOD 02/01/2025 1:[address] [facility] MCV 96.6 79.0 - 98.0 FL LAB HEMETOLOGY METHOD 02/01/2025 1:[address] [facility] MCH 29.6 27.0 - 32.0 pcg LAB HEMETOLOGY METHOD 02/01/2025 1:[address] [facility] MCHC 30.7(L) 32.0 - 37.0 g/dL LAB HEMETOLOGY METHOD 02/01/2025 1:[address] [facility] RDW 14.7 11.0 - 15.0 % LAB HEMETOLOGY METHOD 02/01/2025 1:[address] [facility] Platelets 225 130 - 400 K/mcL LAB HEMETOLOGY METHOD 02/01/2025 1:[address] [facility] MPV 10.5 7.0 - 11.0 FL LAB HEMETOLOGY METHOD 02/01/2025 1:[address] [facility] NRBC 0.0 <1.0 % LAB HEMETOLOGY METHOD 02/01/2025 1:[address] [facility] NRBC Absolute 0.00 <0.10 K/mcL LAB HEMETOLOGY METHOD 02/01/2025 1:[address] [facility] Blood Venous blood specimen / Unknown Venipuncture / Unknown 02/01/2025 7:28 AM EDT 02/01/2025 10:22 AM EDT us Jelena Kang MD LAB BLOOD ORDERABLES Fin al Result [facility] [address] [place] [address], documented in this encounter Visit Diagnoses Diagnosis Osteopetrosis Type 2 diabetes mellitus without complications (CMS/HCC V24, CMS/HCC V28) Essential (primary) hypertension Unspecified essential hypertension Other cerebrovascular disease Vitamin D deficiency, unspecified documented in this encounter Care Teams Mule Driver Relationship Specialty Start Date End Date Kristy Cedillo MD 305 [facility] [place] [address] PCP - General Internal Medicine 03/02/25 documented as of this encounter
--- OUTSIDE RECORDS SUMMARY | 2025-04-05 15:58 | XMS_ITS | Encounter Summary ---
Author Organization [employer] Address [address] [place] [address] Care Team Providers Care Section Plotter Operator Name Role Phone Kristy Cedillo MD Primary Care Provider [phone] Encounter Details Date Type Department Care Team (Late st Contact Info) Description 02/17/2025 Lab Requisition [facility] - Main Lab 299 [facility] [place] [phone] Jelena Kang MD [address] [phone] Vitamin D deficiency, unspecified; Essential (primary) hypertension; [...] care for your loved ones. For example, childcare center administrator or elderly care for an older adult? [...] AM EDT Office Visit Internal Medicine - [address] [phone] Linette Regan, TORRI 305 [place] [address] 04/20/2025 1:30 PM EDT Medication Management Adult Medicine - [place] [address] [place] [address] Mary Becker, PharmD 444 [place], [place] 05/22/2025 10:40 AM EDT Office Visit Neurology - [address] [place] [phone] Eddy Langley MD [facility] [address] [address] 06/15/2025 10:40 AM EST Office Visit Gastroenterology - [place] 175 [facility] 175 [facility] 200 [place] [phone] Marlen Castro, TORRI 175 [facility] 200 [place] [address] 07/10/2025 9:00 AM EST Procedure visit Urogynecology - [place] [address] [place] [phone] Kamilah Mcconnell MD [address] [place] [address] 205 [place] [address] 07/30/2025 12:00 PM EST Office Visit Internal Medicine - [address] [phone] Kristy Cedillo MD [address] [place] [address] documented as of this encounter Goals Goal Patient Goal Type Associated Problems Recent Progress Patient-Stated? Author Adherence to Treatment Plan General Merly Rodriguez, RN Note: Pt will take her BG reading before all meals Pt will carry glucose gel or tablets with her at all times and keep at the bedside as well documented as of this encounter Visit Diagnoses Diagnosis Vitamin D deficiency, unspecified Essential (primary) hypertension Unspecified essential hypertension Type 2 diabetes mellitus without complications (CMS/[facility] V24, CMS/[facility] V28) Age-related osteoporosis without current pathological fracture documented in this encounter Care Teams Section Plotter Operator Relationship Specialty Start Date End Date Kristy Cedillo MD 305 [facility] [place] PCP - General Internal Medicine 03/02/25 documented as of this encounter
[2025-04-05 17:40] LABS: Appearance Urine Clear; Glucose Urine UA Negative (Negative); PH 5.5 (5.0-9.0); Specific Gravity - Urine 1.025 (1.005-1.025); UMIC TRIGGER UACC YES
[2025-04-05 17:55] LABS: UACC Culture Trigger YES
[2025-04-05 17:59] LABS: Alanine Aminotransferase 16 U/L (0-31); Aspartate Amino Transferase 32 U/L (5-31); Estimated Glomerular Filt Rate > 60
[2025-04-05 18:07] LABS: Protein/Creatinine Ratio, Ur 0.14 (<0.2); Total Protein Urine Random 29 mg/dL (<12)
[2025-04-06 15:39] LABS: SM/Ribonucleoprotein Ab <1.0 NEG AI (<1.0 NEG); Smith Protein <1.0 NEG AI (<1.0 NEG)
--- OUTSIDE RECORDS SUMMARY | 2025-05-20 20:00 | XMS_ITS | Clinical Summary ---
Author Organization Unknown Care Team Providers Care [employer] Supervisor Name Role Phone YOAN CANO, BRAD Unavailable Unavaila ble SARA PT, ERNESTO Unavailable Unavailable [place]AN OT, JUANA Unavailable Unavailable COYLE LAMINATOR HAND, CHI Unavailable Unavailable CONDINO ARMINDA/ADAMSON, DARÍO Unavailable Unav ailable BRANDIN MARINN, FREDERIC Unavailable Unavailmeme MAY RN, EDMUNDO Unavailable Unavailable Payers Payer Name Policy Type Policy Number Effective Date Expira tion Date BCBSMA.HMOBLUE.MA.C.NOAUTH [id number] Problems Condition Name Condition Details Condition Category Status Onset Date Resolution Date Last Treatment Date Treating Clinician Comments TYPE 2 DIABETES MELLITUS WITH HYPERGLYCEMI A Active 02-05 00:00: 00 ESSENTIAL (PRIMARY) HYPERTENSION Active 07-26 00:00: 00 DEPRESSION, UNSPECIFIED Active 07-26 00:00: 00 PRIMARY OSTEOARTHRIT IS, UNSPECIFIED HAND Active 07-26 00:00: 00 HEMIPLGA FOLLOWING CEREBRAL INFRC AFFECTING LEFT NONDOM SIDE Active 07-26 00:00: 00 AGE-RELATED OSTEOPOROSIS W/O CURRENT PATHOLOGICAL FRACTURE Active 07-26 00:00: 00 OTHER HYPERLIPIDEM IA Active 07-26 00:00: 00 UNSPECIFIED GLAUCOMA Active 07-26 00:00: 00 TYPE 2 DIABETES MELLITUS WITH DIABETIC CATARACT Active 07-26 00:00: 00 NAUSEA WITH VOMITING, UNSPECIFIED Active 02-05 00:00: 00 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 ELETS Active 07-26 00:00: 00 MCFP (CURRENT) USE OF SYSTEMIC STEROIDS Active 07-26 00:00: 00 HISTORY OF FALLING Active 07-26 00:00: 00 PERSONAL HISTORY OF NICOTINE DEPENDENCE Active 07-26 00:00: 00 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 Active 02-05 00:00: 00 MCFP (CURRENT) USE OF ORAL HYPOGLYCEMIC DRUGS Active [...] mg/mL eye drops 01-12 00:00: 00 Yes [id number] GLAUCOMA 1 drops DAILY 1 drops DAILY (route: ophthalmic (eye)) Med Classific ation: Ophthalmi c Agents Restasis 0.05 % eye drops in a dropperette 01-09 00:00: 00 01-22 00:00 :00 No [id number] Per instruc tions Per instructio ns (route: ophthalmic (eye)) Med Classific ation: Ophthalmi c Agents prednisone 20 mg tablet 01-04 00:00: 00 02-15 23:59 :00 No [id number] INFLAMMATIO N 1 tablet THREE TIMES A DAY 1 tablet THREE TIMES A DAY (route: oral) Med Classific ation: Endocrine calcium 600 mg (as carbonate)- vitamin D3 10 mcg (400 unit) tablet 01-02 00:00: 00 Yes [id number] SUPPLEMENT 1 tablet TWICE A DAY 1 tablet TWICE A DAY (route: oral) Med Classific ation: Electroly te Balance-N utritiona l Products meclizine 12.5 mg tablet 01-01 00:00: 00 Yes [id number] DIZZINESS 1 tablet 2 TIMES DAILY NEEDED 1 tablet 2 TIMES DAILY NEEDED (route: oral) Med Classific ation: Gastroint estinal Therapy Agents brimonidine 0.2 % eye drops 12-30 00:00: 00 01-22 00:00 :00 No [id number] Per instruc tions 3 TIMES A DAY Per instructio ns 3 TIMES A DAY (route: ophthalmic (eye)) Med Classific ation: Ophthalmi c Agents acetazolami de 250 mg tablet 12-28 00:00: 00 01-22 00:00 :00 No [id number] Per instruc tions TWICE A DAY Per instructio ns TWICE A DAY (route: oral) Med Classific ation: Cardiovas cular Therapy Agents sulfamethox azole 800 mg-trimetho prim 160 mg tablet 12-25 00:00: 00 01-22 00:00 :00 No [id number] Per instruc tions TWICE A DAY FOR 10 DAYS Per instructio ns TWICE A DAY FOR 10 DAYS (route: oral) Med Classific ation: Anti-Infe ctive Agents amlodipine 10 mg tablet 01-22 00:00: 00 02-15 23:59 :00 No [id number] HEART 1 tablet DAILY 1 tablet DAILY (route: oral) Med Classific ation: Cardiovas cular Therapy Agents atorvastati n 40 mg tablet 01-22 00:00: 00 Yes [id number] CHOLESTEROL 1 tablet DAILY 1 tablet DAILY (route: oral) Med Classific ation: Cardiovas cular Therapy Agents clopidogrel 75 mg tablet 01-22 00:00: 00 Yes [id number] ANTIPLATELE T 1 tablet DAILY 1 tablet DAILY (route: oral) Med Classific ation: Hematolog ical Agents Flonase Allergy Relief 50 mcg/actuati on nasal spray,suspe nsion 01-22 00:00: 00 Yes [id number] NOSE 2 spray DAILY 2 spray DAILY (route: nasal) Med Classific ation: Respirato ry Therapy Agents metoprolol tartrate 50 mg tablet 01-22 00:00: 00 Yes [id number] HEART 1 tablet DAILY 1 tablet DAILY (route: oral) Med Classific ation: Cardiovas cular Therapy Agents mirtazapine 15 mg tablet 01-22 00:00: 02-23 23:59 :00 No [id number] SLEEP 1 tablet BEDTIME 1 tablet BEDTIME (route: oral) Med Classific ation: Central Nervous System Agents pantoprazol e 20 mg tablet,jean yed release 01-22 00:00: 00 02-23 23:59 :00 No [id number] REFLUX 1 tablet 2 TIMES DAILY 1 tablet 2 TIMES DAILY (route: oral) Med Classific ation: Gastroint estinal Therapy Agents cephalexin 500 mg capsule 01-21 00:00: 00 01-28 23:59 :00 No [id number] UTI 1 capsule 4 TIMES DAILY 1 capsule 4 TIMES DAILY (route: oral) Med Classific ation: Anti-Infe ctive Agents metformin 500 mg tablet 01-21 00:00: 00 Yes [id number] DM 1 tablet 2 TIMES DAILY 1 tablet 2 TIMES DAILY (route: oral) Med Classific ation: Endocrine Admelog SoloStar U-100 Insulin lispro 100 unit/mL subcutaneou s pen - 00:00: 02-21 23:59 :00 No [id number] BLOOD SUGAR 200-249 3 unit BEFORE MEALS 3 unit BE[facility] MEALS [facility] Med Classific ation: Endocrine Admelog SoloStar U-100 Insulin lispro 100 unit/mL subcutaneou s pen 7-24 00:00: 00 02-21 23:59 :00 No [id number] BLOOD SUGAR 250-299 5 unit BEFORE MEALS 5 unit BEFORE MEALS (route: [facility] [place]) Med Classific ation: Endocrine Admelog SoloStar U-100 Insulin lispro 100 unit/mL subcutaneou s pen 0 7-24 00:00: 00 02-21 23:59 :00 No [id number] BLOOD SUGAR 300-349 7 unit BEFORE MEALS 7 unit BEFORE MEALS ([facility] Med Classific ation: Endocrine Admelog SoloStar U-100 Insulin lispro 100 unit/mL subcutaneou s pen 7- 00:00: 00 02-21 23:59 :00 No [id number] DIABETES 9 unit BEFORE MEALS 9 unit BEFORE MEALS (route: [facility]) Med Classific ation: Endocrine Admelog SoloStar U-100 Insulin lispro 100 unit/mL [facility] s pen 02-15 00:00: 00 02-21 23:59 :00 No [id number] BLOOD SUGAR 400-449 11 unit BEFORE MEALS 11 unit BEFORE MEALS (route: [facility]) Med Classific ation: Endocrine amlodipine 5 mg tablet 02-15 00:00: 00 Yes [id number] HIGH BLOOD PRESSURE 1 tablet DAILY 1 tablet DAILY (route: oral) Med Classific ation: Cardiovas cular Therapy Agents Lantus Solostar U-100 Insulin 100 unit/mL (3 mL) [facility] s pen 02-15 00:00: 00 02-21 23:59 :00 No [id number] DIABETES 12 unit BEDTIME 12 unit BEDTIME (route: [facility]) Med Classific ation: Endocrine metformin 500 mg tablet 02-21 00:00: 00 02-23 23:59 :00 No [id number] diabetes 1 tablet DAILY 1 tablet DAILY (route: oral) Med Classific ation: Endocrine metformin 500 mg tablet 02-24 00:00: 00 02-26 23:59 :00 No [id number] diabetes 1 tablet 2 TIMES DAILY 1 tablet 2 TIMES DAILY (route: oral) Med Classific ation: Endocrine metformin 500 mg tablet 02-27 00:00: 00 03-01 23:59 :00 No [id number] diabetes Per instruc tions 2 TIMES DAILY Per instructio ns 2 TIMES DAILY (route: oral) Med Classific ation: Endocrine metformin 500 mg tablet 03-02 00:00: 00 Yes [id number] diabetes 2 tablet 2 TIMES DAILY 2 tablet 2 TIMES DAILY (route: oral) Med Classific ation: Endocrine omeprazole 20 mg capsule,del ayed release 02-23 00:00: 00 Yes [id number] GERD 1 capsule 2 TIMES DAILY 1 capsule 2 TIMES DAILY (route: oral) Med Classific ation: Gastroint estinal Therapy Agents Vital Signs Vital Name Observation Time Observation Value Commen ts Temperature 2025-04-04 05:20:00.000 97.2 [degF] Temperature 2025-03-27 09:49:00.000 97.9 [degF] Temperature 2025-03-23 10:22:00.000 97.3 [degF] Pulse 2025-04-04 05:20:00.000 70 /min Pulse 2025-03-27 09:49:00.000 70 /min Pulse 2025-03-23 10:22:00.000 87 /min O2 Saturation (%) 2025-04-04 05:21:00.000 97 % O2 Saturation (%) 2025-03-27 09:49:00.000 95 % O2 Saturation (%) 2025-03-23 10:22:00.000 97 % Respirations 2025-04-04 05:20:00.000 18 /min Respirations 2025-03-27 09:49:00.000 17 /min Respirations 2025-03-23 10:22:00.000 18 /min Systolic Blood Pressure 2025-04-04 05:20:00.000 134 mm [Hg] Systolic Blood Pressure 2025-03-27 09:49:00.000 122 mm [Hg] Systolic Blood Pressure 2025-03-23 10:22:00.000 130 mm [Hg] Diastolic Blood Pressure 2025-04-04 05:20:00.000 74 mm [Hg] Diastolic Blood Pressure 2025-03-27 09:49:00.000 68 mm [Hg] Diastolic Blood Pressure 2025-03-23 10:22:00.000 60 mm [Hg] Plan of Treatment Planned Activity Planned Date Details Comments Future Scheduled Test FALL REDUC TION MANAGEMENT; RN TO ASSESS AND OBSERVE, INSTALLMENT AGENT/SUPERVISOR MIXING TO OBSERVE FALL RISK FACTORS AND EDUCATE PATIENT/CAREGIVER ON STRATEGIES TO MINIMIZE THE RISK OF FALLING. [code = FALL REDUCTION MANAGEMENT; RN TO ASSESS AND OBSERVE, INSTALLMENT AGENT/SUPERVISOR MIXING TO OBSERVE FALL RISK FACTORS AND EDUCATE PATIENT/CAREGIVER ON STRATEGIES TO MINIMIZE THE RISK OF FALLING.] Future Scheduled Test DIABETES M ANAGEMENT; RN TO ASSESS AND TEACH, SUPERVISOR MIXING/INSTALLMENT AGENT TO OBSERVE AND TEACH INSTRUCTIONS OF DIABETIC CARE TO INCLUDE: DIET DIABETIC, SKIN CARE, SIGNS AND SYMPTOMS OF HYPO/HYPERGLYCEMIA, PROPER ADMINISTRATION OF DIABETIC MEDICATION. RN/SUPERVISOR MIXING/INSTALLMENT AGENT TO INSTRUCT ON DIABETIC FOOT CARE AND MONITOR FOR SKIN LESIONS ON LOWER EXTREMITIES. BLOOD GLUCOSE TESTING DAILY RN TO ASSESS AND TEACH, SUPERVISOR MIXING/INSTALLMENT AGENT TO OBSERVE AND TEACH PATIENT/CAREGIVER ABILITY TO PERFORM AND RECORD BLOOD GLUCOSE TESTING ORDERED AND TO REPORT ABNORMAL FINDINGS TO PHYSICIAN. RN/SUPERVISOR MIXING/INSTALLMENT AGENT MAY PERFORM BLOOD GLUCOSE TEST NEEDED. RN/SUPERVISOR MIXING/INSTALLMENT AGENT TO REPORT TO PHYSICIAN BLOOD GLUCOSE READINGS GREATER THAN 350 OR LESS THAN 70 RN/SUPERVISOR MIXING/INSTALLMENT AGENT TO INSTRUCT PATIENT ON IMPORTANCE OF HGBA1C MONITORING, KIDNEY FUNCTION TEST, EYE AND FOOT EXAMS. [code = DIABETES MANAGEMENT; RN TO ASSESS AND TEACH, SUPERVISOR MIXING/INSTALLMENT AGENT TO OBSERVE AND TEACH INSTRUCTIONS OF DIABETIC CARE TO INCLUDE: DIET DIABETIC, SKIN CARE, SIGNS AND SYMPTOMS OF HYPO/HYPERGLYCEMIA, PROPER ADMINISTRATION OF DIABETIC MEDICATION. RN/SUPERVISOR MIXING/INSTALLMENT AGENT TO INSTRUCT ON DIABETIC FOOT CARE AND MONITOR FOR SKIN LESIONS ON LOWER EXTREMITIES. BLOOD GLUCOSE TESTING DAILY RN TO ASSESS AND TEACH, SUPERVISOR MIXING/INSTALLMENT AGENT TO OBSERVE AND TEACH PATIENT/CAREGIVER ABILITY TO PERFORM AND RECORD BLOOD GLUCOSE TESTING ORDERED AND TO REPORT ABNORMAL FINDINGS TO PHYSICIAN. RN/SUPERVISOR MIXING/INSTALLMENT AGENT MAY PERFORM BLOOD GLUCOSE TEST NEEDED. RN/SUPERVISOR MIXING/INSTALLMENT AGENT TO REPORT TO PHYSICIAN BLOOD GLUCOSE READINGS GREATER THAN 350 OR LESS THAN 70 RN/SUPERVISOR MIXING/INSTALLMENT AGENT TO INSTRUCT PATIENT ON IMPORTANCE OF HGBA1C MONITORING, KIDNEY FUNCTION TEST, EYE AND FOOT EXAMS.] Future Scheduled Test RN TO OBSE RVE, ASSESS, EVALUATE, AND DEVELOP AN INDIVIDUALIZED PLAN OF CARE. AGENCY MAY ACCEPT ORDERS FROM CONSULTING PHYSICIANS RN TO OBSERVE AND ASSESS, INSTALLMENT AGENT/SUPERVISOR MIXING TO OBSERVE FOR RISK FOR FALLS AND INSTRUCT IN FALL PREVENTION, HOME SAFETY, MEDICATION MANAGEMENT, INFECTION PREVENTION, AND NUTRITION MANAGEMENT. RN/INSTALLMENT AGENT/SUPERVISOR MIXING NURSE MAY PERFORM O2 SATURATION LEVEL ON ADMISSION AND PRN FOR RN TO ASSESS/INSTALLMENT AGENT TO OBSERVE PATIENT, WITH NOTIFICATION TO THE PHYSICIAN IF SATURATION IS 90% IN THE ABSENCE OF MORE SPECIFIC PARAMETERS FROM THE PHYSICIAN. AGENCY MAY PERFORM A RESUMPTION OF CARE VISIT FOLLOWING ANY HOSPITAL ADMISSION. RN/INSTALLMENT AGENT/SUPERVISOR MIXING TO MONITOR CO-MORBID CONDITIONS LISTED ON THE PLAN OF CARE AND ANY NEW CONDITIONS THAT PRESENT THEMSELVES DURING THIS EPISODE TO IDENTIFY CHANGES AND INTERVENE TO MINIMIZE COMPLICATIONS. [code = RN TO OBSERVE, ASSESS, EVALUATE, AND DEVELOP AN INDIVIDUALIZED PLAN OF CARE. AGENCY MAY ACCEPT ORDERS FROM CONSULTING PHYSICIANS RN TO OBSERVE AND ASSESS, INSTALLMENT AGENT/SUPERVISOR MIXING TO OBSERVE FOR RISK FOR FALLS AND INSTRUCT IN FALL PREVENTION, HOME SAFETY, MEDICATION MANAGEMENT, INFECTION PREVENTION, AND NUTRITION MANAGEMENT. RN/INSTALLMENT AGENT/SUPERVISOR MIXING NURSE MAY PERFORM O2 SATURATION LEVEL ON ADMISSION AND PRN FOR RN TO ASSESS/INSTALLMENT AGENT TO OBSERVE PATIENT, WITH NOTIFICATION TO THE PHYSICIAN IF SATURATION IS 90% IN THE ABSENCE OF MORE SPECIFIC PARAMETERS FROM THE PHYSICIAN. AGENCY MAY PERFORM A RESUMPTION OF CARE VISIT FOLLOWING ANY HOSPITAL ADMISSION. RN/INSTALLMENT AGENT/SUPERVISOR MIXING TO MONITOR CO-MORBID CONDITIONS LISTED ON THE PLAN OF CARE AND ANY NEW CONDITIONS THAT PRESENT THEMSELVES DURING THIS EPISODE TO IDENTIFY CHANGES AND INTERVENE TO MINIMIZE COMPLICATIONS.] Future Scheduled Test GASTROINTE STINAL MANAGEMENT; RN TO ASSESS AND TEACH, SUPERVISOR MIXING/INSTALLMENT AGENT TO OBSERVE AND TEACH RELATED TO ALTERED GASTROINTESTINAL STATUS TO MINIMIZE COMPLICATIONS AND REDUCE HOSPITALIZATION. [code = GASTROINTESTINAL MANAGEMENT; RN TO ASSESS AND TEACH, SUPERVISOR MIXING/INSTALLMENT AGENT TO OBSERVE AND TEACH RELATED TO ALTERED GASTROINTESTINAL STATUS TO MINIMIZE COMPLICATIONS AND REDUCE HOSPITALIZATION.] Future Scheduled Test PAIN MANAG EMENT; RN TO ASSESS AND TEACH, SUPERVISOR MIXING/INSTALLMENT AGENT TO OBSERVE AND TEACH AND PROVIDE EDUCATION ON PAIN MANAGEMENT TECHNIQUES. [code = PAIN MANAGEMENT; RN TO ASSESS AND TEACH, SUPERVISOR MIXING/INSTALLMENT AGENT TO OBSERVE AND TEACH AND PROVIDE EDUCATION ON PAIN MANAGEMENT TECHNIQUES.] Future Scheduled Test RISK FOR H OSPITALIZATION; RN TO ASSESS/TEACH, SUPERVISOR MIXING/INSTALLMENT AGENT TO OBSERVE/TEACH PATIENT/CAREGIVER ON RISK FOR HOSPITALIZATION/EMERGENCY ROOM VISITS, TEACH SIGNS AND SYMPTOMS THAT PUT PATIENT AT RISK, WHEN TO NOTIFY NURSE/PHYSICIAN OF COMPLICATIONS/DECLINE, AND WHEN TO CALL 911. [code = RISK FOR HOSPITALIZATION; RN TO ASSESS/TEACH, SUPERVISOR MIXING/INSTALLMENT AGENT TO OBSERVE/TEACH PATIENT/CAREGIVER ON RISK FOR HOSPITALIZATION/EMERGENCY ROOM VISITS, TEACH SIGNS AND SYMPTOMS THAT PUT PATIENT AT RISK, WHEN TO NOTIFY NURSE/PHYSICIAN OF COMPLICATIONS/DECLINE, AND WHEN TO CALL 911.] Future Scheduled Test CARDIOVASC ULAR SYSTEM; RN TO ASSESS/TEACH, INSTALLMENT AGENT/SUPERVISOR MIXING TO OBSERVE/TEACH RELATED TO ALTERED CARDIOVASCULAR STATUS TO MINIMIZE COMPLICATIONS AND REDUCE HOSPITALIZATION. [code = CARDIOVASCULAR SYSTEM; RN TO ASSESS/TEACH, INSTALLMENT AGENT/SUPERVISOR MIXING TO OBSERVE/TEACH RELATED TO ALTERED CARDIOVASCULAR STATUS TO MINIMIZE COMPLICATIONS AND REDUCE HOSPITALIZATION.] Future Scheduled Test MEDICATION MANAGEMENT; RN/INSTALLMENT AGENT/SUPERVISOR MIXING TO REVIEW MEDICATIONS FOR INTERACTIONS, EFFECTIVENESS OF DRUG THERAPY, AND SIGNS/SYMPTOMS OF ADVERSE REACTIONS. MAY INSTRUCT AND REINFORCE MEDICATION TEACHING RELATED TO THE USE OF MEDICATIONS, DOSAGE, FREQUENCY, PURPOSE, SIDE EFFECTS, AND TO REPORT COMPLICATIONS. [code = MEDICATION MANAGEMENT; RN/INSTALLMENT AGENT/SUPERVISOR MIXING TO REVIEW MEDICATIONS FOR INTERACTIONS, EFFECTIVENESS OF DRUG THERAPY, AND SIGNS/SYMPTOMS OF ADVERSE REACTIONS. MAY INSTRUCT AND REINFORCE MEDICATION TEACHING RELATED TO THE USE OF MEDICATIONS, DOSAGE, FREQUENCY, PURPOSE, SIDE EFFECTS, AND TO REPORT COMPLICATIONS.] Goal 2025-02-15 Patient Goal - TO FEEL ANITA R Goal Patient Goal - TO FEEL ANITA R Goal 2025-03-19 Patient Goal - TO FEEL ANITA R Goal Provider Goal - PATIENT/CAREGIVER WILL VERBALIZE/DEMONSTRATE [...] CARE WILL BE ESTABLISHED THAT MEETS THE PATIENT S NEEDS. PATIENT WILL DEMONSTRATE OXYGEN SATURATION WITHIN NORMAL LIMITS OR PATIENT S OPTIMAL LEVEL ESTABLISHED BY THE PHYSICIAN THROUGHOUT CARE. CHANGES TO CO-MORBID CONDITIONS AND ANY NEW CONDITIONS WILL BE IDENTIFIED AND REPORTED TO THE PHYSICIAN. Goal Provider Goal - PATIENT / CAREGIVER WILL VERBALIZE/DEMONSTRATE UNDERSTANDING OF MEASURES TO MANAGE ALTERED GASTROINTESTINAL STATUS BY END OF EPISODE. Goal Provider Goal - PATIENT / CAREGIVER [...] STATUS BY EOE Goal Provider Goal - PATIENT/CAREGIVER TO VERBALIZE, AND CONSISTENTLY DEMONSTRATE EFFECTIVE, SAFE MANAGEMENT OF MEDICATION INCLUDING KNOWLEDGE OF EFFECTIVENESS, POTENTIAL SIDE EFFECTS AND DRUG REACTIONS AND WHEN TO CONTACT THE APPROPRIATE CARE PROVIDER. PATIENT/CAREGIVER WILL BE ABLE TO VERBALIZE UNDERSTANDING OF MEDICATION REGIMEN AND ACCURATELY TAKE MEDICATIONS PRESCRIBED WITHOUT ADVERSE EFFECTS BY EOE Progress Notes Progress Notes <paragraph>[Visit Date: 2024 by MARVIN NAVA LPN]:</paragraph><paragraph>ALERT AND ORIENTED AMBULATES WITH WALKER WITHOUT DIFFICULTY NO COMPLAINTS OF PAIN OR DISCOMFORT. 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 APPETITE AND HYDRATION ADEQUATE NO SS HYPO HYPERGLYCEMIA. PATIENT EDUCATED ON DIABETIC FOOT CARE.VN PREFILLED PO MEDS X ONE WEEK PATIENT LIGHT ON CALCIUM VN ENCOURAGED REORDER.PATIENT TO NOTIFY NURSING OF ANY HEALTH ISSUES</paragraph> Encounters Start Date/Time End Date/Time Encounter Type Admission Type Attending Clinicians Care Facility Care Department Encounter ID Discharge Date Discharge Status Discharge Condition Discharge Reason Percent Goals Met 2025-03-23 00:00:00 2025-05-21 00:00:00 Outpatient RECERTIFIC ATION EDMUNDO [facility] [id number] 0.00
== END 2025-04-05 10:42 | disposition home or self-care (01) ==
LOC: HO.HKASLDS 10:41
PROVIDERS: PCP Internal Medicine; Visit Provider Internal Medicine Rheumatology
DX: H20.00 Unspecified acute and subacute iridocyclitis (principal); M11.20 Other chondrocalcinosis, unspecified site; M15.4 Erosive (osteo)arthritis; R76.0 Raised antibody titer
CPT/HCPCS: 36415; 81001; 82565; 82570; 84156; 84450; 84460; 85652; 86140; 86160; 86225; 86235; 87086; 99212

== ENCOUNTER 2025-04-05 10:41 | Outpatient (AMB) | payer MEDICARE, SELFPAY ==
--- NOTE | 2025-04-05 10:43 | MHC.OFFVIS ---
Vital Signs 04/05/25 10:45 Height 5 ft 6 in Weight 184 lb 1.376 oz BMI 29.7 BP 130/80 Blood Pressure Location Lt brachial Position Sitting Pulse 80 Pulse Source Pulse Oximeter Pulse Oximetry (%) 95 Oxygen Delivery Method Room Air Intake Visit Reasons: Review results Intake Note: Patient resents today for uevitis an joint pain. Accompanied by: Self / Same As Patient Allergies aspirin Allergy (Mild, Verified 04/05/25 10:46) Rash HPI HPI Review results: Details: She is experiencing pain in all of her joints, especially with the weather change becoming more colder. She feels cold in general. No new joint swelling. Physical Exam Vital Signs: Last Vital Signs Pulse 80 04/05/25 10:45 BP 130/80 04/05/25 10:45 Pulse Ox 95 04/05/25 10:45 Oxygen Delivery Method Room Air 04/05/25 10:45 BMI result Body Mass Index 29.7 Const Other: General: Comfortable CVS: RRR Respiratory: clear to auscultation bilaterally. Good respiratory effort Skin: No lesions seen MSK: Tender bilateral 2nd to 5th MCPs, bilateral PIPs, ulnar deviation of bilateral hands at MCPs. Right 2nd PIP synovitis present. She has Heberden nodes and Usman's nodes. Tender bilateral shoulders. Shoulder abduction 160 degrees with good internal and external rotation of right shoulder. Left shoulder abduction 90 degrees. She has pain with internal and external rotation of left shoulder with limitation in range of motion. Tender to palpate bilateral knees without effusions. She has bilateral valgus valgus deformity. Bilateral knee flexion is 100 degrees. Limited full external rotation of bilateral hips. . Assessment & Plan Assessment & Plan (1) Acute anterior uveitis of both eyes: Comment: HLA B27 negative. Labs reveal ERIC 1:320. She does not have cytopenias with normal kidney function. ESR is 37 but lower than her upper limit of normal adjusted for age and sex (42.5 mm/hr). Her daughter has SLE. We discussed further workup to complete workup for SLE with specific antibodies and disease activity markers. Code(s): H20.00 - Unspecified acute and subacute iridocyclitis Category: Medical Plan: Being managed by Ophthalmology Labs ordered Return to clinic in 3 months (2) Calcium pyrophosphate deposition disease (CPPD): Comment: X-ray show calcification of left triangular fibrocartilage complex indicating CPPD disease. She has polyarthralgias involving MCPs and PIP and morning stiffness all day in her hands, which are likely due to CPPD disease. We discussed diagnosis and management. Discussed side effects and drug monitoring on colchicine. Code(s): M11.20 - Other chondrocalcinosis, unspecified site Category: Medical Plan: Start colchicine 0.6 mg daily Information on CPPD disease given to patient Return to clinic in 3 months (3) Erosive osteoarthritis of both hands: Comment: Personally reviewed x-rays with patient. We discussed diagnosis, natural course and management. Failed Tylenol and diclofenac gel. 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 Antibodies Today R76.0 - Raised antibody titer Alanine Aminotransferase Today R76.0 - Raised antibody titer Protein Creatinine Ratio, Ur Today R76.0 - Raised antibody titer Aspartate Amino Transferase Today R76.0 - Raised antibody titer Erythrocyte Sedimentation Rate Today R76.0 - Raised antibody titer Complement C3 Today R76.0 - Raised antibody titer Complement C4 Today R76.0 - Raised antibody titer Medications: New colchicine 0.6 mg PO DAILY 30 tabs 5RF Coding Level of Care Code Est Pt Level 4 (55574) Complex EM visit Add On G2211 Diagnoses Acute anterior uveitis of both eyes H20.00 Calcium pyrophosphate deposition disease (CPPD) M11.20 Erosive osteoarthritis of both hands M15.4
[2025-04-05 10:45] VITALS: BP 130/80; PULSE 80; O2SAT 95; BMI 29.7
== END 2025-04-05 11:14 | disposition home or self-care (01) ==
LOC: HO.RHES 10:42
PROVIDERS: PCP Internal Medicine; Visit Provider Internal Medicine Rheumatology
DX: H20.00 Unspecified acute and subacute iridocyclitis (principal); M11.20 Other chondrocalcinosis, unspecified site; M15.4 Erosive (osteo)arthritis
CPT/HCPCS: 99214; G2211

== ENCOUNTER 2025-07-25 10:45 | Outpatient (REF) | payer MEDICARE, SELFPAY ==
[2025-07-25 14:28] LABS: MANUAL DIFF FLAG NO
[2025-07-25 14:32] LABS: Hematocrit 37.9 % (37.0-47.0); Hemoglobin 12.2 g/dl (12.0-16.0); Imm Gran Abs Auto 0.01 X10*3/uL (0.00-0.03); Imm Gran Pct Auto 0.2 % (0.0-0.4); Lymphocytes Absolute Auto 2.7 X10*3/uL (1.2-4.9); Mean Corpuscular HGB Conc 32.2 g/dl (31.0-35.0); Mean Corpuscular Hemoglobin 28.5 pg (27.0-33.0); Mean Corpuscular Volume 88.6 fL (80.0-98.0); NRBC Abs Auto 0.000 X10*3/uL (0.0-0.012); NRBC Pct Auto 0.0 /100WBC (0.0-0.2); Platelet Count 302 X10*3/uL (160-400); Red Blood Count 4.28 X10*6/uL (4.20-5.50); White Blood Count 5.5 X10*3/uL (4.8-10.8)
[2025-07-25 14:36] LABS: Alanine Aminotransferase 13 U/L (0-31); Aspartate Amino Transferase 27 U/L (5-31); Estimated Glomerular Filt Rate > 60
== END 2025-07-25 10:46 | disposition home or self-care (01) ==
LOC: HO.HKASLDS 10:45
PROVIDERS: PCP Internal Medicine; Visit Provider Internal Medicine Rheumatology
DX: H20.00 Unspecified acute and subacute iridocyclitis (principal); M11.20 Other chondrocalcinosis, unspecified site; M15.4 Erosive (osteo)arthritis; M54.2 Cervicalgia; Z79.899 Other long term (current) drug therapy
CPT/HCPCS: 36415; 82565; 84450; 84460; 85025; 99212

== ENCOUNTER 2025-07-25 10:45 | Outpatient (AMB) | payer MEDICARE, SELFPAY ==
--- NOTE | 2025-07-25 10:50 | A.OFFVIS_ITS ---
Vital Signs 07/25/25 10:51 Height 5 ft 6 in Weight 173 lb 8.061 oz BMI 28.0 BP 140/80 H Blood Pressure Location Rt brachial Position Sitting Pulse 69 Pulse Source Pulse Oximeter Pulse Oximetry (%) 93 Oxygen Delivery Method Room Air Intake Visit Reasons: 3months Intake Note: Patient resents today for uevitis an joint pain. Accompanied by: Self / Same As Patient Allergies aspirin Allergy (Mild, Verified 07/25/25 10:53) Rash HPI HPI 3months: Details: left sided neck pain started a month ago. Temporary relief with heating pad. She was given pain medication ?tylenol from PCP without benefit. She took two pills. No change on colchicine. She continues to have pain in her joints. No new joint swelling. She is tolerating colchicine. Morning stiffness is lasting hours. Physical Exam Vital Signs: Last Vital Signs Pulse 69 07/25/25 10:51 BP 140/80 H 07/25/25 10:51 Pulse Ox 93 07/25/25 10:51 Oxygen Delivery Method Room Air 07/25/25 10:51 BMI result Body Mass Index 28.0 Const Other: General: Comfortable CVS: RRR Respiratory: clear to auscultation bilaterally. Good respiratory effort Skin: No lesions seen MSK: Tender to palpate left paraspinal muscles, occiput and trapezius. She has limitation in full cervical spine extension and flexion. Rotation of cervical spine is 45 degrees bilaterally. No cervical spinous process tenderness. Tender bilateral MCPs, PIPs, ulnar deviation of bilateral hands at MCPs. No synovitis present. She has Heberden nodes and Usman's nodes. Tender bilateral shoulders. Shoulder abduction 160 degrees with good internal and external rotation of right shoulder. Left shoulder abduction 90 degrees with limited internal external rotation. Tender to palpate bilateral knees without effusions. She has bilateral valgus valgus deformity. Bilateral knee flexion is 100 degrees. Limited full external rotation of bilateral hips. . Assessment & Plan Assessment & Plan (1) Acute anterior uveitis of both eyes: Comment: HLA B27 negative. Labs reveal ERIC 1:320. She does not have cytopenias with normal kidney function. ESR is 37 but lower than her upper limit of normal adjusted for age and sex (42.5 mm/hr). Repeat ESR is 34. Her daughter has SLE. Specific disease activity markers for lupus and antibodies were negative. Low clinical suspicion for rheumatological connective tissue disease contributing to anterior uveitis. Code(s): H20.00 - Unspecified acute and subacute iridocyclitis Category: Medical Plan: Follow up with Ophthalmology. (2) Calcium pyrophosphate deposition disease (CPPD): Comment: Tolerating colchicine without change in subjective joint symptoms. On colchicine synovitis of PIP resolved. She also has declining ESR level. Rheumatology history: Deforming with ulnar deviation of hands. X-ray show calcification of left triangular fibrocartilage complex indicating CPPD disease. Presenting with polyarthralgias involving MCPs, PIP and morning stiffness all day in her hands. Colchicine started March 2025. Code(s): M11.20 - Other chondrocalcinosis, unspecified site Category: Medical Plan: Increased frequency of colchicine 0.6 mg 2 b.i.d. Drug monitoring labs ordered this visit Return to clinic in 3 months (3) Erosive osteoarthritis of both hands: Comment: Failed Tylenol and diclofenac gel. Code(s): M15.4 - Erosive (osteo)arthritis Category: Medical Plan: I will consider adding oral NSAID at next visit OT ordered to improve range of motion and rn enterostomal strength Return to clinic in 3 months (4) Myofascial neck pain: Code(s): M54.2 - Cervicalgia Category: Medical Plan: Apply lidocaine patch to affected area PT ordered If pain does not improve, I will consider muscle relaxer. We discussed side effects of muscle relaxer use this visit but recommended trying above before using muscle relaxer Orders: Orders Alanine Aminotransferase Today Z79.899 - Other long chain dyeing machine operator (current) drug therapy Complete Blood Count Auto Diff Today Z79.899 - Other long chain dyeing machine operator (current) drug therapy OT Evaluation and Treatment Today M15.4 - Erosive (osteo)arthritis Aspartate Amino Transferase Today Z79.899 - Other longterm (current) drug therapy Creatinine Today Z79.899 - Other long chain dyeing machine operator (current) drug therapy PT Evaluation and Treatment Today M54.2 - Cervicalgia Medications: Changed From colchicine 0.6 mg PO DAILY 30 tabs 5RF To colchicine 0.6 mg PO BID 120 tabs 5RF 60 days Coding Level of Care Code Est Pt Level 4 (55071) Add On Problem Visit Only Diagnoses Acute anterior uveitis of both eyes H20.00 Calcium pyrophosphate deposition disease (CPPD) M11.20 Erosive osteoarthritis of both hands M15.4 Myofascial neck pain M54.2
[2025-07-25 10:51] VITALS: BP 140/80; PULSE 69; O2SAT 93; BMI 28.0
--- OUTSIDE RECORDS SUMMARY | 2025-07-25 12:08 | XMS_ITS | Encounter Summary ---
Author Organization [place] [address] Care Team Providers Care Highway Painter Name Role Phone Kristy Cedillo MD Primary Care Provider [phone] Encounter Details Date Type Department Care Team (Late st Contact Info) Description 02/17/2025 Lab Requisition [facility] - Main Lab 299 [facility] [place] [address] Jelena Kang MD [address] [id number] Vitamin D deficiency, unspecified; Essential (primary) hypertension; [...] care for your loved ones. For example, director child development center or elderly care for an older adult? [...] Date Recorded What is your living situation? Unrecognized valu e 02/14/2025 Interpersonal Safety Answer Date Record ed Physical Abuse Unrecognized value 01/26/2025 Verbal Abuse Unrecognized value 01/26/2025 Comments No Sex and Gender Information Value Date Recorded Sex Assigned at Not on file Legal Sex Female 4:01 AM EST Gender Identity Not on file Sexual Orientation Straight 01/26/2025 5: 58 PM EDT documented as of this encounter Plan of Treatment Upcoming Encounters Date Type Department Care Team (Late st Contact Info) Description 07/30/2025 12:00 PM EST Office Visit Internal Medicine - [address] [phone] Kristy Cedillo MD [address] [place] [address] 08/07/2025 10:30 AM EST Office Visit Orthopedic Surgery - [place] 250 175 [facility] 250 [place] [address] Donna Mcfarlane PA 175 [place] [address] 08/14/2025 11:00 AM EST Office Visit Neurology - [address] [place] [phone] Eddy Langley MD 1000 [facility] [address] [place] [address] 09/18/2025 10:30 AM EST Procedure visit Urogynecology [address] [address] Kamilah Mcconnell MD 580 [facility] 205 [place] [address] 10/19/2025 11:15 AM EDT Office Visit Internal Medicine - [address] [phone] Linette Regan NP [address] [place] [address] documented as of this encounter Visit Diagnoses Diagnosis Vitamin D deficiency, unspecified Essential (primary) hypertension Unspecified essential hypertension Type 2 diabetes mellitus without complications (CMS/HCC V24, CMS/HCC V28) Age-related osteoporosis without current pathological fracture documented in this encounter Care Teams Highway Painter Relationship Specialty Start Date End Date Kristy Cedillo MD 305 [place] [address] PCP - General Internal Medicine 03/02/25 documented as of this encounter
--- OUTSIDE RECORDS SUMMARY | 2025-07-25 12:09 | XMS_ITS | Encounter Summary ---
Author Organization [employer] [address] Care Team Providers Care Slitter Helper Name Role Phone Kristy Cedillo MD Primary Care Provider Encounter Details Date Type Department Care Team (Late st Contact Info) Description 06/25/2025 Results Follow-Up Internal Medicine - [place] [address] [place] [phone] Rosalind Cardona MA Social History Tobacco Use Types Packs/Day Years Used Date Smoking Tobacco: Never Smokeless Tobacco: Never Alcohol Use Standard Drinks/Week Comments No 0 (1 standard drink = 0.6 oz pur e alcohol) ocaasionaly Housing Instability Answer Date Recorde d Are you worried that in the next 2 months you may not have stable housing? No 06/26/2025 Food Access & Nutrition Answer Date Rec orded Do you have access to a vari ety of food including fruits and vegetables? Yes 06/26/2025 Access to Healthcare Answer Date Record ed Within the last 3 months, ho w many times did you visit the emergency department for your medical care? 0 06/26/2025 Health Literacy Answer Date Recorded How often do you need to hav e someone help you when you read instructions, pamphlets, or other written material from your doctor or pharmacy? Rarely 06/26/2025 Caregiver: How often do you need to have someone help you when you read instructions, pamphlets, or other written material from your doctor or pharmacy? Not on file 06/26/2025 Financial Risk Answer Date Recorded How hard is it for you to pa y for the very basics like food, housing, medical care, and air conditioning / heating? Not very hard 06/26/2025 Transportation Answer Date Recorded Has the lack of transportati on kept you from meetings, work, or from getting things needed for daily living? No Has the lack of transportati on kept you from medical appointments or from getting medications? No 06/26/2025 Social Isolation Answer Date Recorded How often do you feel lonely or isolated from those around you? Sometimes 06/26/2025 Food Risk Answer Date Recorded Within the past 12 months we worried whether our food would run out before we got money to buy more. Never true 06/26/2025 Within the past 12 months th e food we bought just didn't last and we didn't have money to get more. Never true 06/26/2025 Dependent Care Answer Date Recorded Do you need help finding or paying for care for your loved ones. For example, children's book author or elderly care for an older adult? No 06/26/2025 Education Answer Date Recorded Do you think completing more education or training, like finishing a GED, going to college, or learning a trade, would be helpful for you? N/A 06/26/2025 Employment and Income Answer Date Recor ded During the last four weeks, have you been actively looking for work? No 06/26/2025 Living Situation Answer Date Recorded What is your living situation? Unrecognized valu e 06/26/2025 Interpersonal Safety Answer Date Record ed Physical [...] PM EST [facility] [place] [address] Kristy Cedillo MD 305 [place], [place] 08/07/2025 10:30 AM EST Office Visit Orthopedic Surgery - [place] 250 175 [facility] 250 [place] [phone] Donna Mcfarlane, JAYDE 175 [place] [address] 08/14/2025 11:00 AM EST Office Visit Neurology - [place] [address] [place] [phone] Eddy Langley MD [address] [facility] 2112 [place] [address] 09/18/2025 10:30 AM EST Procedure visit Urogynecology [facility] 444 [place] [address] Kamilah Mcconnell MD 580 [facility] 205 [place] [address] 10/19/2025 11:15 AM EDT Office Visit Internal Medicine - [address] [phone] Linette Regan NP [address] [place] [address] documented as of this encounter Visit Diagnoses Not on filedocumented in this encounter Additional Health Concerns Assessment Noted Time PHQ-9 Depression Total Score: 13 06/18/2 025 10:43 AM EST documented as of this encounter Care Teams Slitter Helper Relationship Specialty Start Date End Date Kristy Cedillo MD [address] [place] [address] PCP - General Internal Medicine 03/02/25 documented as of this encounter
--- OUTSIDE RECORDS SUMMARY | 2025-07-25 12:09 | XMS_ITS | Encounter Summary ---
Author Organization [employer] [place] [address] Care Team Providers Care Lab Animal Technologist Name Role Phone Kristy Cedillo MD Primary Care Provider [phone] Encounter Details Date Type Department Care Team (Late st Contact Info) Description 02/01/2025 Lab Requisition [facility] - Main Lab 299 [facility] [place] [phone] Jelena Kang MD [address] [phone] Osteopetrosis; Type 2 diabetes mellitus without complications [...] for your loved ones. For example, childcare provider or elderly care for an older adult? [...] is your living situation? Unrecognized valu e 01/26/2025 Interpersonal Safety Answer Date Record ed [...] PM EST Office Visit Internal Medicine - [address] [phone] Kristy Cedillo MD [address] [place] [address] 08/07/2025 10:30 AM EST Office Visit Orthopedic Surgery - [place] 250 175 [facility] [address] [place] [phone] Donna Mcfarlane PA 175 [place] [address] 08/14/2025 11:00 AM EST Office Visit Neurology - [address] [place] [phone] Eddy Langley MD 1000 [facility] 2112 [place] [address] 09/18/2025 10:30 AM EST Procedure visit Urogynecology [address] [phone] Kamilah Mcconnell MD 580 [facility] 205 [place] [address] 10/19/2025 11:15 AM EDT Office Visit Internal Medicine - [address] [phone] Linette Regan NP [address] [place] [address] documented as of this encounter Procedures Procedure Name Priority Date/Time Associated Diagnosis Comments VITAMIN D 25 HYDROXY Routine 02/01/2025 7:28 AM EDT Osteopetrosis Type 2 diabetes mellitus without complications (CMS/HCC V24, CMS/HCC V28) Essential (primary) hypertension Other cerebrovascular disease Vitamin D deficiency, unspecified COMPLETE BLOOD COUNT Routine 02/01/2025 7:28 AM EDT Osteopetrosis Type 2 diabetes mellitus without complications ([facility] V24, [facility] V28) Essential (primary) hypertension Other cerebrovascular disease Vitamin D deficiency, unspecified MAGNESIUM Routine 02/01/2025 7:28 AM EDT Osteopetrosis Type 2 diabetes mellitus without complications ([facility] V24, [facility] V28) Essential (primary) hypertension Other cerebrovascular disease Vitamin D deficiency, unspecified HEMOGLOBIN A1C Routine 02/01/2025 7:28 AM EDT Osteopetrosis Type 2 diabetes mellitus without complications ([facility] V24, [facility] V28) Essential (primary) hypertension Other cerebrovascular disease Vitamin D deficiency, unspecified FOLATE Routine 02/01/2025 7:28 AM EDT Osteopetrosis Type 2 diabetes mellitus without complications ([facility] V24, [facility] V28) Essential (primary) hypertension Other cerebrovascular disease Vitamin D deficiency, unspecified VITAMIN B12 Routine 02/01/2025 7:28 AM EDT Osteopetrosis Type 2 diabetes mellitus without complications ([facility] V24, [facility] V28) Essential (primary) hypertension Other cerebrovascular disease Vitamin D deficiency, unspecified COMPREHENSIVE METABOLIC PANEL Routine 02/01/2025 7:28 AM EDT Osteopetrosis Type 2 diabetes mellitus without complications ([facility] V24, [facility] V28) Essential (primary) hypertension Other cerebrovascular disease Vitamin D deficiency, unspecified documented in this encounter Results * (ABNORMAL) Hemoglobin A1c (02/01/2025 7:28 AM EDT) Hemoglobin A1C 11.0(H) <6.5 % LAB CHEMISTRY METHOD 02/01/2025 1:37 PM EDT [facility] Mean Bld Glu Estim. 269 mg/dL LAB CHEMISTRY METHOD 02/01/2025 1:37 PM EDT [facility] Blood Venous blood specimen / Unknown Venipuncture / Unknown 02/01/2025 7:28 AM EDT 02/01/2025 10:22 AM EDT Jelena Kang MD LAB BLOOD ORDERABLES Fin al Result Performing Organization Address City/[facility]/ZIP Co de Phone Number [facility] [address] [place] [address], [place] [phone] * Vitamin D 25 hydroxy (02/01/2025 7:28 AM EDT) Vit D, 25-Hydroxy 38.5 30.0 - 80.0 ng/mL LAB CHEMISTRY METHOD 02/01/2025 2:23 PM EDT [facility] Blood Venous blood specimen / Unknown Venipuncture / Unknown 02/01/2025 7:28 AM EDT 02/01/2025 10:22 AM EDT Jelena Kang MD LAB BLOOD ORDERABLES Fin al Result Performing Organization Address [facility] de Phone Number [facility] [address] [place] [address], [place] [phone] * (ABNORMAL) Folate (02/01/2025 7:28 AM EDT) Folate 19.8(H) 2.8 - 17.0 ng/ml LAB CHEMISTRY METHOD 02/01/2025 1:32 PM EDT [facility] Blood Venous blood specimen / Unknown Venipuncture / Unknown 02/01/2025 7:28 AM EDT 02/01/2025 10:22 AM EDT Jelena Kang MD LAB BLOOD ORDERABLES Fin al Result Performing Organization Address City/[facility]/ZIP Co de Phone Number [facility] [address] [place] [address], [place] [phone] * Magnesium (02/01/2025 7:28 AM EDT) [facility] Magnesium 2.0 1.9 - 2.6 mg/dL LAB CHEMISTRY METHOD 02/01/2025 1:32 PM EDT [facility] Blood Venous blood specimen / Unknown Venipuncture / Unknown 02/01/2025 7:28 AM EDT 02/01/2025 10:22 AM EDT Jelena Kang MD LAB BLOOD ORDERABLES Fin al Result Performing Organization Address [facility]/ZIP Co de Phone Number [facility] [address] [place] [address], [place] [phone] * (ABNORMAL) Vitamin B12 (02/01/2025 7:28 AM EDT) [facility] Vitamin B-12 1,337(H) 250 - 900 pcg/mL LAB CHEMISTRY METHOD 02/01/2025 1:32 PM EDT [facility] Blood Venous blood specimen / Unknown Venipuncture / Unknown 02/01/2025 7:28 AM EDT 02/01/2025 10:22 AM EDT Jelena Kang MD LAB BLOOD ORDERABLES Fin al Result Performing Organization Address City/[facility]/ZIP Co de Phone Number [facility] [address] [place] [address], [place] [phone] * (ABNORMAL) Comprehensive metabolic panel (02/01/2025 7:28 AM EDT) [facility] Sodium 142 133 - 145 mmol/L LAB CHEMISTRY METHOD 02/01/2025 1:33 PM EDT [facility] Potassium 4.2 3.5 - 5.5 mmol/L LAB CHEMISTRY METHOD 02/01/2025 1:33 PM EDT [facility] Chloride 110 96 - 110 [...] 1:33 PM [facility] Total Protein 5.1(L) 6.0 - 8.0 g/dL LAB CHEMISTRY METHOD 02/01/2025 1:33 PM [facility] Albumin 2.4(L) 3.2 - 5.0 g/dL LAB CHEMISTRY METHOD 02/01/2025 1:33 PM EDT [facility] Total Bilirubin 0.4 0.0 - 1.4 mg/dL LAB CHEMISTRY METHOD 02/01/2025 1:33 PM EDT [facility] Blood Venous blood specimen / Unknown Venipuncture / Unknown 02/01/2025 7:28 AM EDT 02/01/2025 10:22 AM EDT us Jelena Kang MD LAB BLOOD ORDERABLES Fin al Result [facility] [address] [place] [address], [place] [phone] * (ABNORMAL) Complete blood count (02/01/2025 7:28 AM EDT) WBC 5.4 4.8 - 10.8 K/mcL LAB HEMETOLOGY METHOD 02/01/2025 1:45 PM EDT [facility] RBC 3.80 3.80 - 4.80 M/mcL LAB HEMETOLOGY METHOD 02/01/2025 1:45 PM EDT [facility] Hemoglobin 11.2(L) 11.5 - 16.0 g/dL LAB HEMETOLOGY METHOD 02/01/2025 1:45 PM EDT [facility] Hematocrit 36.5 35.0 - 47.0 % LAB HEMETOLOGY METHOD 02/01/2025 1:45 PM EDT [facility] MCV 96.6 79.0 - 98.0 FL LAB HEMETOLOGY METHOD 02/01/2025 1:45 PM EDT [facility] MCH 29.6 27.0 - 32.0 pcg LAB HEMETOLOGY METHOD 02/01/2025 1:45 PM EDT [facility] MCHC 30.7(L) 32.0 - 37.0 g/dL LAB HEMETOLOGY METHOD 02/01/2025 1:45 PM EDT [facility] RDW 14.7 11.0 - 15.0 % LAB HEMETOLOGY METHOD 02/01/2025 1:45 PM EDT [facility] Platelets 225 130 - 400 K/mcL LAB HEMETOLOGY METHOD 02/01/2025 1:45 PM EDT [facility] MPV 10.5 7.0 - 11.0 FL LAB HEMETOLOGY METHOD 02/01/2025 1:45 PM EDT [facility] NRBC 0.0 <1.0 % LAB HEMETOLOGY METHOD 02/01/2025 1:45 PM EDT [facility] NRBC Absolute 0.00 <0.10 K/mcL [facility] 02/01/2025 1:45 PM EDT [facility] Blood Venous blood specimen / Unknown Venipuncture / Unknown 02/01/2025 7:28 AM EDT 02/01/2025 10:22 AM EDT us Jelena Kang MD LAB BLOOD ORDERABLES Fin al Result [facility] [address] [place] [address], documented in this encounter Visit Diagnoses Diagnosis Osteopetrosis Type 2 diabetes mellitus without complications (CMS/HCC V24, CMS/HCC V28) Essential (primary) hypertension Unspecified essential hypertension Other cerebrovascular disease Vitamin D deficiency, unspecified documented in this encounter Care Teams Lab Animal Technologist Relationship Specialty Start Date End Date Kristy Cedillo MD [address] [place] [address] PCP - General Internal Medicine 03/02/25 documented as of this encounter
--- OUTSIDE RECORDS SUMMARY | 2025-07-25 12:09 | XMS_ITS | Clinical Summary ---
Author Organization [address] [facility] Address [address] [place] [address] Phone Care Team Providers Care Development Geologist Name Role Phone Kristy Cedillo MD Primary Care Provider [phone] Allergies Active Allergy Reactions Criticality Noted Date Comments Aspirin Rash 11/12/2005 Gabapentin Nausea And Vomiting 12/17/2016 Medications cholecalciferol (VITAMIN D-3) 50 mcg (2,000 unit) tablet Take 1 Tablet by mouth daily. 12/03/19 24 Active estradioL (ESTRACE) 0.01 % (0.1 mg/gram) vaginal cream 02/08/20 24 026 Active mirabegron (MYRBETRIQ) 50 mg tablet extended release 24 hr 24 hr tablet 02/08/20 24 Active VITAMIN C, ASCORBATE CALCIUM, ORAL Take 1 tablet by mouth daily. Active loratadine (CLARITIN) 10 mg tablet Take 1 tablet (10 mg total) by mouth 1 (one) time each day. 90 tablet 09/07/19 25 Active omeprazole (PriLOSEC) [address] capsule TAKE 1 CAPSULE BY MOUTH 2 TIMES DAILY (BEFORE MEALS). 180 capsule 1 11/16/19 25 Active cycloSPORINE (RESTASIS) 0.05 % ophthalmic emulsion Administer 1 drop into both eyes 2 (two) times a day. Active dorzolamide-rocael loL (COSOPT) 22.3-6.8 mg/mL ophthalmic solution Administer 1 drop into the left eye 2 (two) times a day. Active blood-glucose meter kitIndications:T ype 2 diabetes mellitus with other specified complication, with long-term current use of insulin ([facility] V24, [facility] V28) Use daily or as directed for monitoring of diabetes. Accucheck Kamryn or whichever is covered by insurance 1 each 01/24/20 25 026 Active lancets lancetsIndicatio ns:Type 2 diabetes mellitus with other specified complication, with long-term current use of insulin ([facility] V24, [facility] V28) Check blood sugar 2 times a day Accucheck Kamryn or whichever is covered by insurance 200 each 01/24/20 25 026 Active alendronate (FOSAMAX) 70 mg tablet Take 1 tablet (70 mg total) by mouth every 7 (seven) days. Take in the morning with a full glass of water, on an empty stomach, and do not take anything else by mouth or lie down for the next 30 min. 12 tablet 1 03/02/20 25 Active Assure Prism Multi Strip test stripIndications :Type 2 diabetes mellitus without complication, without long-term current use of insulin ([facility] V24, [facility] V28) Use one test strip to check blood sugar once a day. 100 each 5 03/27/20 25 026 Active calcium carbonate-vitami n D 600 mg-10 mcg (400 unit) per tabletIndication s:Age-related osteoporosis without current pathological fracture TAKE 1 TABLET BY MOUTH TWICE A DAY 180 tablet 1 03/28/20 25 Active acetaZOLAMIDE (DIAMOX) 250 mg tablet Take 1 tablet (250 mg total) by mouth 2 (two) times a day. 12/29/19 25 Active colchicine (COLCRYS) 0.6 mg tablet Take 1 tablet (0.6 mg total) by mouth 1 (one) time each day. 04/05/20 25 Active olopatadine (PATANOL) 0.1 % ophthalmic solution Administer 1 drop into both eyes 2 (two) times a day. 03/15/20 25 Active atorvastatin (LIPITOR) 40 mg tablet TAKE 1 TABLET BY MOUTH EVERY DAY 90 tablet 1 04/30/20 25 Active glucose blood test stripIndications :Type 2 diabetes mellitus without complication, without long-term current use of insulin ([facility] V24, [facility] V28) Use to test blood sugar once daily (may dispense whichever brand is covered) 100 each 1 05/01/20 25 026 Active metoprolol succinate (TOPROL-XL) 50 mg 24 hr tablet TAKE 1 TABLET BY MOUTH 1 TIME EACH DAY. DO NOT CRUSH OR CHEW. 90 tablet 1 05/18/20 25 Active sertraline (ZOLOFT) 25 mg tablet Take 1 tablet (25 mg total) by mouth 1 (one) time each day. 30 each 5 05/31/20 25 Active amLODIPine (NORVASC) 5 mg tablet Take 1 tablet (5 mg total) by mouth 1 (one) time each day. 30 each 5 05/31/20 25 Active metFORMIN XR (GLUCOPHAGE-XR) 500 mg 24 hr tablet Take 2 tablets (1,000 mg total) by mouth 2 (two) times a day. Do not crush, chew, or split. 360 each 1 06/01/20 25 Active fluticasone propionate (FLONASE) 50 mcg/actuation nasal spray Administer 2 sprays into each nostril 1 (one) time each day. Shake gently. Before first use, prime pump. After use, clean tip and replace cap. 48 mL 06/07/20 25 Active colestipoL (COLESTID) 1 gram tablet Take 1 tablet (1 g total) by mouth 2 (two) times a day. 180 each 06/15/20 25 026 Active clopidogreL (PLAVIX) 75 mg tablet Take 1 tablet (75 mg total) by mouth 1 (one) time each day. 90 tablet 1 06/18/20 25 Active meclizine (ANTIVERT) 12.5 mg tabletIndication s:Unspecified sequelae of cerebral infarction TAKE 1 TABLET BY MOUTH TWICE DAILY NEEDED FOR DIZZINESS 60 tablet 5 07/06/20 25 Active meclizine (ANTIVERT) 12.5 mg tabletIndication s:Unspecified sequelae of cerebral infarction TAKE 1 TABLET BY MOUTH 2 TIMES DAILY NEEDED (DIZZINESS). 60 tablet 06/07/20 25 025 Discontinued Active Problems Problem Noted Date Diagnosed Date CORONA (dyspnea on exertion) 12/12/2024 Assessment & [...] bubble, strain, and 3D order panel; Future Sleep disturbance 05/22/2024 Snoring 05/22/2024 Overview (04/18/2025): Last Assessment & Plan: Given her sleep disturbances as well as history of snoring and previous daytime sleepiness, suggested sleep study for further evaluation of possible underlying sleep apnea which may be contributory. The patient is agreeable; order placed. We will continue to readdress as needed. Peripheral edema 05/22/2024 Overview (04/18/2025): Last Assessment & Plan: Very mild on exam. Conservative measures were recommended with compression, elevation, and low-sodium diet. Palpitations 05/22/2024 Overview (04/18/2025): Last Assessment & Plan: No further reports of palpitations noted since starting Toprol; continue Toprol 50 mg daily. Dizziness 05/22/2024 Overview (04/18/2025): Last Assessment & Plan: Ongoing and unchanged since her stroke; this does not appear to be orthostatic in nature given that it occurs while she is laying in bed as well as when she is up and walking. Hospital notes state meclizine was somewhat helpful while inpatient; she continues to take this as needed. She will continue to follow-up with her PCP and neurology regarding this. Daytime sleepiness 05/22/2024 CVA (cerebral vascular accident) 01/24/2024 Left-sided weakness 12/28/2023 Dysphagia 10/14/2023 Overview (04/18/2025): Dysphagia, pharyngoesophageal phase; Note: Date Diagnosed: 10/14/2023 2:14 PM (R13.14) Osteoporosis 09/08/2023 Type 2 diabetes mellitus wit h diabetic cataract, without long-term current use of insulin 08/29/2023 Assessment & Plan (04/17/2025 12:11 PM EDT): >>ASSESSMENT AND PLAN FOR TYPE 2 DIABETES MELLITUS ([facility] V24, [facility] V28) WRITTEN ON 09/07/2024 12:07 PM BY CANDELARIO MILTON MD Will check A1c. Diabetic diet discussed. Orders: Hemoglobin A1c; Future Assessment & Plan (04/17/2025 12:11 PM EDT): >>ASSESSMENT AND PLAN FOR TYPE 2 DIABETES MELLITUS ([facility] V24, [facility] V28) WRITTEN ON 03/02/2025 12:48 PM BY CANDELARIO MILTON MD For now she is only on metformin. [...] Patient had MRI lumbar spine 04/27/2022 at [facility] that shows multilevel degenerative changes including [...] patient has an upcoming lumbar JEFF at [facility] pain management in [place], she would like to proceed with this [...] uveitis 01/16/2020 Overview (05/06/2024): Was On methotrexate Ground glass opacity present on imaging of lung 04/03/2019 Atelectasis 04/03/2019 ERIC positive 04/03/2019 CORONA (dyspnea on exertion) 04/03/2019 Overview (04/18/2025): Last Assessment & Plan: The patient presents today with new onset shortness of breath with almost any exertion and peripheral edema over the last several weeks to months. On exam, she is noted to have very mild peripheral edema as well as mild HJR. We will update labs including metabolic panel, magnesium level, and BNP; I suspect there may be an element of diastolic dysfunction and given her apparent mild fluid overload we will trial furosemide 20 mg x 3 days to see if this improves symptoms. We discussed the mechanism of action of this medication and that it may exacerbate her dizziness; she is aware she should take care to prevent falls and she will call our office for any new or worsening symptoms once she starts this medication. I have asked her to call our office at the conclusion of these 3 days to let us know if it improved her symptoms any and how she tolerated it; both the patient and her daughter verbalized agreement to do so. We will continue to readdress this once we know show she is responded. Multiple thyroid nodules 03/24/2019 Glaucoma 11/22/2018 Primary osteoarthritis of both knees 01/05/2017 Fibromyalgia 10/28/2016 Overview (05/06/2024): Followed by pain management, on lamotrigine Pain management (12/16/17): Seen for fibromyalgia Lamotrigine trial for fibromyalgia? 2017: Gabapentin not helpful, pregabalin caused lightheadedness. Sensorineural hearing loss (SNHL) of left ear Overview (04/18/2025): Sensorineural hearing loss, unilateral, left ear, with restricted hearing on the contralateral side; Note: Date Diagnosed: 10/27/2016 2:41 PM (H90.A22) Mixed conductive and sensori neural hearing loss of right ear 10/27/2016 Overview (04/18/2025): Mixed conductive and sensorineural hearing loss, unilateral, right ear with restricted hearing on the contralateral side; Note: Date Diagnosed: 10/27/2016 2:41 PM (H90.A31) Osteoarthritis, hand 10/03/2012 Hyperlipidemia 04/26/2007 Overview (06/18/2025): >>OVERVIEW FOR MIXED HYPERLIPIDEMIA WRITTEN ON 04/18/2025 2:40 PM BY YUDY GUADARRAMA MA Last Assessment & Plan: The patient's most recent lipid panel was completed 04/20/2024 revealing an LDL of 55 which is at goal on atorvastatin; triglycerides were mildly elevated at 158. Continue atorvastatin 40 mg without change. I have reviewed with the patient the importance of a heart healthy lifestyle which includes eating a low-fat low-salt diet, getting regular exercise, maintaining a healthy weight, not smoking, and following up with routine medical care. Assessment & Plan (12/13/2024 6:46 AM EDT): The patient's most recent lipid panel was completed 03/31/2024 showing an LDL of 55; given her history of CVA and diabetes, LDL goal is less than 55. She was encouraged to continue with lifestyle modifications with improved diet and increased activity as tolerated to further improve her cholesterol; continue atorvastatin. 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 Orders: Ambulatory referral to Cardiology Assessment & Plan (09/07/2024 12:07 PM EST): For history of CVA, I have placed a referral to follow-up with her neurologist. Continue regimen of clopidogrel, atorvastatin. Orders: Ambulatory referral to Neurology; Future TB lung, latent 01/09/2020 04/17/2025 Overview (05/06/2024): INH course completed 04/2020 Pulmonary air trapping 04/03/201904/17 Anxiety 05/21/2015 04/17/2025 Assessment & Plan (03/02/2025 12:48 PM EDT): Refill sertraline. Will reevaluate anxiety again in 4 to 6 weeks. Will consider increasing dose from 25 to 50 mg if anxiety is not under control at the next visit. Depression 09/22/2012 04/17/2025 Overview (05/06/2024): With anxiety Vitamin D deficiency 09/18/2012 025 Dysphagia 11/12/2005 04/17/2025 Overview (05/06/2024): IMO update Assessment & Plan (09/07/2024 12:07 PM EST): She will have small bites and take sips of water if she is eating hard, chewy foods. Declines follow-up with GI. Headache 11/12/2005 04/17/2025 Encounters Date Type Department Care Team Description 07/24/2025 Telephone Urogynecology - [address] [id number] [place] [address] Kamilah Mcconnell MD 06/25/2025 10:22 AM EST - 06/25/2025 11:59 PM EST Hospital Encounter Xray - [facility] [address] [place] [address] Chronic left shoulder pain Discharge Disposition: Home or Self Care 06/25/2025 10:22 AM EST - 06/25/2025 11:59 PM EST Hospital Encounter Xray - [facility] [address] [facility] [place] [address] Discharge Disposition: Home or Self Care 06/25/2025 10:15 AM EST - 06/25/2025 11:59 PM EST Hospital Encounter Ultrasound - [facility] [address] [facility] [place] [address] Multiple thyroid nodules Discharge Disposition: Home or Self Care 06/25/2025 Results [facility] [address] [place], [place] [address] [address] Rosalind Cardona MA 06/25/2025 Results [facility] [address] [place] [place] [address] [place] [phone] Rosalind Cardona MA 06/18/2025 10:30 AM EST [facility] [address] [facility] [place] [address] Linette Regan, TORRI Chronic left shoulder pain (Primary Dx); Hypertension, unspecified type; Osteoporosis, unspecified osteoporosis type, unspecified pathological fracture presence; Osteoarthritis of hand, unspecified laterality, unspecified osteoarthritis type; Multiple thyroid nodules; Dysphagia, unspecified type; Anxiety and depression; Loneliness; Type 2 diabetes mellitus with diabetic cataract, without long-term current use of insulin ([facility] V24, [facility] V28); Mixed hyperlipidemia 06/15/2025 10:40 AM EST Office Visit Gastroenterology - [address] [place] [address] Marlen Castro NP Bile salt-induced diarrhea (Primary Dx); Esophageal dysmotility 06/07/2025 3:00 PM EST Office Visit Internal Medicine - [address] [phone] Cameron Aquino PA Acute pain of left shoulder (Primary Dx); Unspecified sequelae of cerebral infarction 05/30/2025 Telephone Internal Medicine - [address] [address] Martha Thompson RN 04/27/2025 Results Follow-Up Internal Medicine - [address] [address] Bethany Benson MA from Last 3 Months Immunizations Immunization Administration Dates Next Due Influenza trivalent, 0.5mL ( Fluad) 65yo and older 04/17/2025,04/20/2024,04/23/2023,04/23,05/05/2020,04/14/2019,04/28/2018 ,05/12/2017 Influenza trivalent, 0.5mL, preservative free (Fluarix; FluLaval; Fluzone) ages 6mo and older (Afluria) 3 years and older 07/10/2016,04/30/2015,06/01/2013,08/23,08/13/2011,05/08/2010,05/07/2008 ,04/26/2007,05/06/2006 Pfizer SARS-CoV-2 COVID-19, mRNA, LNP-S, preservative free 06/17/2021,09/28/2020,08/31/2020 [...] 11/23/2005 PROCEDURE: PAP SMEAR (1 SLIDE); COMMENT: Kalyani elizalde ESOPHAGOGASTRODUODENOSCOPY 01/24/2004 PROCEDURE: SC ESOPHAGOGASTRODUODENOSCOPY TRANSORAL DIAGNOSTIC; COMMENT: Kelly; tonio HYSTERECTOMY PROCEDURE: HISTORICAL TOTAL HYSTERECTOMY WITH BSO KNEE ARTHROSCOPY - PROCEDURE: SC ARTHROSCOPY AID TX SPINE&/FX KNEE W/O FIXJ; COMMENT: left COLONOSCOPY 01/24/2004 PROCEDURE: SC COLONOSCOPY STOMA DX INCLUDING COLLJ SPEC SPX; COMMENT: Kelly; tonio COLONOSCOPY 04/25/2015 PROCEDURE: HISTORICAL COLONOSCOPY; COMMENT: Diverticulosis, [...] Glaucoma 11/22/2018 DX:Glaucoma Chronic anterior uveitis 01/16/2020 DX:[employer] rishi anterior uveitis; COMMENT: On methotrexate Lumbar degenerative [...] Daughter 2 lupus Arthritis Father Diabetes Mother Mom Breast cancer Other 1 niece Breast cancer Other 2 niece Coronary artery disease Sister x4 3 3rd sister from CAD Other: ovarian cancer Sister x4 3 Arthritis Son 1 Other: Other Son 2 gluten allergy? Relation Name Status Comments Brother x6 4 Alive Daughter 1 Alive Daughter 2 Alive Father Mother Mom Other 1 niece Alive Other 2 Sister [...] ed Within the last 3 months, ho heber many times did you visit the emergency [...] for your loved ones. For example, children's attendant or elderly care for an older adult? [...] Orientation Straight 01/26/2025 5: 58 PM EDT Last Filed Vital Signs Vital Sign Reading Time Taken Comments Blood Pressure 124/64 06/18/2025 11:08 AM EST Pulse 81 06/18/2025 10:43 AM EST auto cuff Temperature 36.7 C (98.1 F) 06/18/2025 10:43 AM EST Respiratory Rate 16 06/07/2025 2:59 PM EST Oxygen Saturation 96% 06/15/2025 10:44 AM EST Inhaled Oxygen Concentration - - Weight 80.3 kg (177 lb) 06/18/2025 10:43 AM EST Height 167.6 cm (5' 6 ) 06/15/2025 10:44 AM EST Body Mass Index 28.57 06/15/2025 10:44 AM EST Plan of Treatment Upcoming Encounters Date Type Department Care Team (Late st Contact Info) Description 07/30/2025 12:00 PM EST [facility] [place] [phone] Kristy Cedillo MD [address] [facility] [place] 08/07/2025 10:30 AM EST Office Visit Orthopedic Surgery - [address] [facility] [address] [place] [phone] Donna Mcfarlane PA [address] [place] [address] 08/14/2025 11:00 AM EST Office Visit Neurology - [place] [address] [facility] [address] [place] [address] Eddy Langley MD [address] [facility] [address] [place] [address] 09/18/2025 10:30 AM EST Procedure visit Urogynecology [facility] [address] [place] [address] Kamilah Mcconnell MD [address] [facility] [address] [place] [address] 10/19/2025 11:15 AM EDT Office Visit Internal Medicine - [facility] [address] [place] [address] Linette Regan, TORRI [address] [place] [address] Health Maintenance Due Date Last Done Comments Diabetes: Annual Retina Eye Exam 11/27/1950 Zoster Vaccines (2 of 3) 11/13/2012 09/18/2012 RSV Immunization Adult Patients (1 - 1-dose 75+ series) 11/27/2014 Medicare Annual Wellness Visit 07/04/2022 Diabetes: Annual Foot Exam 09/26/2024 09/27/2023 Diabetes: Annual Urine Albumin-Creatinine Ratio (uACR) 12/01/2024 12/02/2023 COVID-19 Vaccine ( season) 2025 06/17/2021, 09/28/2020, 08/31/2020 Diabetes: Blood Sugar Control Test (HGBA1C) 10/15/2025 04/17/2025, 02/01/2025, 01/27/2025, Additional history exists Falls Risk Assessment 01/31/2026 01/31/2025 Diabetes: Annual GFR (Glomerular Filtration Rate) 02/12/2026 02/12/2025, 02/05/2025, 02/01/2025, Additional history exists Hypertension/CHF/CAD Annual BMP Blood Test 02/12/2026 02/12/2025, 02/05/2025, 02/01/2025, Additional history exists Social Influencers of Health Screening 06/26/2026 06/26/2025 Cholesterol Screening (Lipid Panel) 04/17/2030 04/17/2025, 04/20/2024, 04/20/2024, Additional history exists DTaP,Tdap,and Td Vaccines (4 - Td or Tdap) 10/12/2032 10/12/2022, 09/14/2012, 08/13/2011 Osteoporosis Screening (Bone Density Screening) 09/02/2033 09/02/2023, 04/07/2021 Pneumococcal Vaccine: 50+ Years Completed 05/05/2020, 11/04/2016, 06/06/2009 Influenza Vaccine Completed 04/17/2025, , 04/23/2023, Additional history exists Depression Screening Completed 06/18/2025 HIB Vaccines Aged Out No longer eligi [...] on patient's age to complete this topic Procedures Procedure Name Priority Date/Time Associated Diagnosis Comments XR CERVICAL SPINE 4-5 VIEWS Routine 06/25/2025 11:12 AM EST Chronic left shoulder pain XR SHOULDER 2+ VIEWS LEFT Routine 06/25/2025 11:11 AM EST Chronic left shoulder pain US HEAD NECK SOFT TISSUE Routine 06/25/2025 10:58 AM EST Multiple thyroid nodules HEMOGLOBIN A1C Routine 04/17/2025 11:43 AM EDT Type 2 diabetes mellitus with hyperglycemia, without long-term current use of insulin ([facility] V24, [facility] V28) LIPID PANEL WITH REFLEX TO DIRECT LDL Routine 04/17/2025 11:43 AM EDT Mixed hyperlipidemia BASIC METABOLIC PANEL Routine 02/12/2025 10:25 AM EDT Vitamin D deficiency, unspecified Essential (primary) hypertension Type 2 diabetes mellitus without complications ([facility] V24, [facility] V28) Age-related osteoporosis without current pathological fracture URINE ALBUMIN CREATININE RATIO Routine 12/02/2023 DIABETES FOOT EXAM Routine 09/27/2023 DXA BONE DENSITY STUDY 1+ SITS AXIAL SKEL Routine 09/02/2023 9:37 AM EST Encounter for screening for osteoporosis from Last 3 Months or Most Recently Relevant to Health Maintenance Results * XR Cervical Spine 4-5 Views (06/25/2025 11:12 AM EST) Anatomical Region Laterality Modality Spine, C-spine Radiographic Leonora ging 06/25/2025 3:45 PM EST Impressions 06/25/2025 3:47 PM EST Mild wedging of the C5 vertebral body of unknown chronicity. Spondylosis and neural foraminal narrowing. -------- FINAL REPORT -------- Dictated By: Marilyn Pathak Dictated Date: 06/25/2025 15:45 ET Assigned Physician: Marilyn Pathak Reviewed and Electronically Signed By: Marilyn Pathak Signed Date: 06/25/2025 15:47 ET Workstation ID: [id number] Transcribed By: Self Edit Transcribed Date: 06/25/2025 15:45 ET Narrative 06/25/2025 3:47 PM EST CERVICAL SPINE, 4 VIEWS HISTORY: Pain. FINDINGS: There is normal alignment of the cervical spine. There is mild wedging of the C5 vertebral body of unknown chronicity. The paravertebral soft tissues are unremarkable. There is disc space narrowing and endplate spurring at C5-6 and C6-7. There is facet arthropathy at multiple levels. There is bilateral neural foraminal narrowing from osteophytes at multiple levels. Procedure Note Marilyn Pathak MD - 06/25/2025 CERVICAL SPINE, 4 VIEWS HISTORY: Pain. FINDINGS: There is normal alignment of the cervical spine. There is mild wedging ofthe C5 vertebral body of unknown chronicity. The paravertebral softtissues are unremarkable. There is disc space narrowing and endplate spurring at C5-6 and C6-7.There is facet arthropathy at multiple levels. There is bilateral neural foraminal narrowing from osteophytes at multiplelevels. IMPRESSION: Mild wedging of the C5 vertebral body of unknown chronicity. Spondylosisand neural foraminal narrowing. -------- FINAL REPORT -------- Dictated By: Marilyn Pathak Dictated Date: 06/25/2025 15:45 ET Assigned Physician: Marilyn Pathak Reviewed and Electronically Signed By: Marilyn Pathak Signed Date: 06/25/2025 15:47 ET Workstation ID: [id number] Transcribed By: Self Edit Transcribed Date: 06/25/2025 15:45 ET us Linette Henry NP IMG XR PROCEDURES Final Resu lt * XR Shoulder 2+ Views Left (06/25/2025 11:11 AM EST) Anatomical Region Laterality Modality Upper Extremities, Shoulder Left Radi ographic Imaging 06/25/2025 3:47 PM EST Impressions 06/25/2025 3:49 PM EST Moderately advanced osteoarthritis of the left shoulder. -------- FINAL REPORT -------- Dictated By: Marilyn Pathak Dictated Date: 06/25/2025 15:47 ET Assigned Physician: Marilyn Pathak Reviewed and Electronically Signed By: Marilyn Pathak Signed Date: 06/25/2025 15:49 ET Workstation ID: [id number] Transcribed By: Self Edit Transcribed Date: 06/25/2025 15:47 ET Narrative 06/25/2025 3:49 PM EST LEFT SHOULDER, 4 VIEWS HISTORY: Pain. PRIORS: None. FINDINGS: There is mild spurring of the left acromial clavicular joint. There is severe joint space narrowing and spurring of the left glenohumeral joint. There are subchondral cysts as well as spurring of the greater tuberosity. No fracture, malalignment, or foreign body is seen. No soft tissue abnormality is seen. There is degenerative change of the spine. Procedure Note Marilyn Pathak MD - 06/25/2025 LEFT SHOULDER, 4 VIEWS HISTORY: Pain. PRIORS: None. FINDINGS: There is mild spurring of the left acromial clavicular joint.There is severe joint space narrowing and spurring of the leftglenohumeral joint. There are subchondral cysts as well as spurring of thegreater tuberosity. No fracture, malalignment, or foreign body is seen. No soft tissueabnormality is seen. There is degenerative change of the spine. 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 -------- FINAL REPORT -------- Dictated By: Marilyn Pathak Dictated Date: 06/25/2025 15:47 ET Assigned Physician: Marilyn Pathak Reviewed and Electronically Signed By: Marilyn Pathak Signed Date: 06/25/2025 15:49 ET Workstation ID: [id number] Transcribed By: Self Edit Transcribed Date: 06/25/2025 15:47 ET us Linette Henry NP IMG XR PROCEDURES Final Resu lt * US Head Neck Soft Tissue (06/25/2025 10:58 AM EST) Anatomical Region Laterality Modality Head and Neck Ultrasound 06/25/2025 2:10 PM EST Impressions 06/25/2025 2:14 PM EST Stable bilateral thyroid nodules. -------- FINAL REPORT -------- Dictated By: Marilyn Pathak Dictated Date: 06/25/2025 14:10 ET Assigned Physician: Marilyn Pathak Reviewed and Electronically Signed By: Marilyn Pathak Signed Date: 06/25/2025 14:14 ET Workstation ID: [id number] Transcribed By: Self Edit Transcribed Date: 06/25/2025 14:10 ET Narrative 06/25/2025 2:14 PM EST US HEAD NECK SOFT TISSUE THYROID SOFT TISSUES NECK HISTORY: Multiple thyroid nodules. Prior: Thyroid ultrasound 02/22/2023. FINDINGS: The thyroid gland is normal echotexture and demonstrates normal vascularity by color Doppler interrogation. 1.0 x 0.7 x 0.5 cm complex nodule midpole right lobe, previously 0.9 x 0.7 x 0.8 cm. 0.5 x 0.3 x 0.5 cm complex nodule upper pole left lobe, previously 0.5 x 0.4 x 0.5 cm. 1.2 x 0.8 x 1.0 cm heterogeneous nodule midpole left lobe, previously 1.2 x 0.8 x 0.7 cm. Allowing for differences in cursor placement, this is unchanged. 0.9 x 0.7 x 0.8 cm complex nodule lower pole left lobe, previously 0.9 x 0.7 x 0.9 cm. The right lobe of the thyroid measures 4.5 x 1.5 x 1.4 cm. The left lobe of the thyroid measures 4.6 x 1.2 x 1.3 cm. The thyroid isthmus measures 2 mm in thickness. Procedure Note Marilyn Pathak MD - 06/25/2025 US HEAD NECK SOFT TISSUE THYROID SOFT TISSUES NECK HISTORY: Multiple thyroid nodules. Prior: Thyroid ultrasound 02/22/2023. FINDINGS: The thyroid gland is normal echotexture and demonstrates normalvascularity by color Doppler interrogation. 1.0 x 0.7 x 0.5 cm complex nodule midpole right lobe, previously 0.9 x 0.7x 0.8 cm. 0.5 x 0.3 x 0.5 cm complex nodule upper pole left lobe, previously 0.5 x0.4 x 0.5 cm. 1.2 x 0.8 x 1.0 cm heterogeneous nodule midpole left lobe, previously 1.2x 0.8 x 0.7 cm. Allowing for differences in cursor placement, this isunchanged. 0.9 x 0.7 x 0.8 cm complex nodule lower pole left lobe, previously 0.9 x0.7 x 0.9 cm. The right lobe of the thyroid measures 4.5 x 1.5 x 1.4 cm. The left lobeof the thyroid measures 4.6 x 1.2 x 1.3 cm. The thyroid isthmus measures2 mm in thickness. IMPRESSION: Stable bilateral thyroid nodules. -------- FINAL REPORT -------- Dictated By: Marilyn Pathak Dictated Date: 06/25/2025 14:10 ET Assigned Physician: Marilyn Pathak Reviewed and Electronically Signed By: Marilyn Pathak Signed Date: 06/25/2025 14:14 ET Workstation ID: [id number] Transcribed By: Self Edit Transcribed Date: 06/25/2025 14:10 ET us Linette Henry NP IMG US PROCEDURES Final Resu lt * Lipid panel with reflex to direct LDL (04/17/2025 11:43 AM EDT) Cholesterol 111 0 - 200 mg/dL LAB CHEMISTRY METHOD 04/17/2025 3:39 PM EDT [facility] Triglycerides 123 0 - 150 mg/dL LAB CHEMISTRY METHOD 04/17/2025 3:39 PM EDT [facility] HDL 49 >=40 mg/dL LAB CHEMISTRY METHOD 04/17/2025 3:39 PM EDT [facility] LDL Calculated 37 0 - 100 mg/dL LAB CHEMISTRY METHOD 04/17/2025 3:39 PM EDT [facility] Comment:Estimated LDL Calcul ated using equation: Total cholesterol - HDL cholesterol - (Triglycerides/5) VLDL Cholesterol Nik 24.6 mg/dL LAB CHEMISTRY METHOD 04/17/2025 3:39 PM EDT [facility] Non HDL Chol. (LDL+VLDL) 62 <145 mg/dL LAB CHEMISTRY METHOD 04/17/2025 3:39 PM EDT [facility] Chol/HDL Ratio 2.3 0.0 - 4.4 LAB CHEMISTRY METHOD 04/17/2025 3:39 PM EDT [facility] Blood Venous blood specimen / Unknown Venipuncture / Unknown 04/17/2025 11:43 AM EDT 04/17/2025 11:43 AM EDT Linette Henry NP LAB BLOOD ORDERABLES Final R esult Performing Organization Address [facility]/ZIP Co de Phone Number [facility] [address] [place] [address], [place] [phone] * (ABNORMAL) Hemoglobin A1c (04/17/2025 11:43 AM EDT) Hemoglobin A1C 7.4(H) <6.5 % LAB CHEMISTRY METHOD 04/17/2025 9:21 PM EDT [facility] Mean Bld Glu Estim. 166 mg/dL LAB CHEMISTRY METHOD 04/17/2025 9:21 PM EDT [facility] Blood Venous blood specimen / Unknown Venipuncture / Unknown 04/17/2025 11:43 AM EDT 04/17/2025 11:43 AM EDT Candelario Milton MD LAB BLOOD ORDERABLES Nikkie l Result [facility] [address] [place] [address], [place] [phone] * (ABNORMAL) Basic metabolic panel (02/12/2025 10:25 AM EDT) Sodium 141 133 - 145 mmol/L LAB CHEMISTRY METHOD 02/12/2025 4:45 PM EDT [facility] Potassium 4.0 3.5 - 5.5 mmol/L LAB CHEMISTRY METHOD 02/12/2025 4:45 PM EDT [facility] Chloride 107 96 - 110 mmol/L LAB CHEMISTRY METHOD 02/12/2025 4:45 PM [facility] CO2 27 21 - 32 mmol/L LAB CHEMISTRY METHOD 02/12/2025 4:45 PM [facility] Anion Gap 7 3 - 11 LAB CHEMISTRY METHOD 02/12/2025 4:45 PM [facility] Glucose 147(H) 70 - 100 mg/dL LAB CHEMISTRY METHOD 02/12/2025 4:45 PM [facility] BUN 7 5 - 25 mg/dL LAB CHEMISTRY METHOD 02/12/2025 4:45 PM [facility] Creatinine 0.61 0.50 - 1.10 mg/dL LAB CHEMISTRY METHOD 02/12/2025 4:45 PM [facility] eGFR 88 >=60 mL/min/1. 73m2 LAB CHEMISTRY METHOD 02/12/2025 4:45 PM [facility] Comment:Calculation based on the Chronic Kidney Disease Epidemiology Collaboration (CKD-EPI) equation refit without adjustment for race. BUN/Creatinine Ratio 11.5 LAB CHEMISTRY METHOD 02/12/2025 4:45 PM [facility] Calcium 9.5 8.5 - 10.5 mg/dL LAB CHEMISTRY METHOD 02/12/2025 4:45 PM [facility] Blood Venous blood specimen / Unknown Venipuncture / Unknown 02/12/2025 10:25 AM EDT 02/12/2025 11:58 AM EDT us Jelena Kang MD LAB BLOOD ORDERABLES Fin al Result [facility] [address] [place] [address], * Urine Albumin Creatinine Ratio (12/02/2023) Pathologist [facility] Urine Albumin Creatinine Ratio abstracted us Historical Provider MD HEALTH MAINTENANCE Final Result * Diabetes Foot Exam (09/27/2023) Pathologist [facility] Diabetes: Annual Foot Exam abstracted us Historical Provider HEALTH MAINTENANCE Final Result * [...] spine and left hip were obtained using [employer] W (S/N [id number]). COMPARISON: None FINDINGS: L1-L4 BMD: 0.920 g/cm2 [...] lumbar spineand left hip were obtained using [employer] W (S/N [id number]). COMPARISON: None FINDINGS: L1-L4 BMD: 0.920 g/cm2 [...] At or below -2.5 SD Osteoporosis Candelario Milton MD [facility] [place] DXA PROCEDURES Final Result from Last 3 Months or Most Recently Relevant to Health Maintenance Insurance [employer] - [place] MEDICARE ADVANTAGE Advance Directives Documents on File Type Date Recorded Patient Tray Server Expl anation Advance Directives and Living Will [...] currently active code status orders. Care Teams Development Geologist Relationship Specialty Start Date End Date Kristy Cedillo MD [address] [facility] [place] PCP - General Internal Medicine 03/02/25
--- OUTSIDE RECORDS SUMMARY | 2025-07-25 12:09 | XMS_ITS | Encounter Summary ---
Author Organization [place] [address] Care Team Providers Care Entertainment Usher Name Role Phone Kristy Cedillo MD Primary Care Provider [phone] Encounter Details Date Type Department Care Team (Late st Contact Info) Description 02/10/2025 Lab Requisition [facility] - Main Lab [address] [facility] [place] [address] Jelena Kang MD [address] [id number] Vitamin D deficiency, unspecified; Essential (primary) hypertension; [...] your loved ones. For example, early childhood education coordinator or elderly care for an older [...] PM EST Office Visit Internal Medicine - [address] [phone] Kristy Cedillo MD [address] [place] [address] 08/07/2025 10:30 AM EST Office Visit Orthopedic Surgery - [place] [address] [facility] [address] [place] [phone] Donna Mcfarlane PA [address] [place] [address] 08/14/2025 11:00 AM EST Office Visit Neurology - [address] [place] [phone] Eddy Langley MD [address] [facility] [address] [place] [id number] 09/18/2025 10:30 AM EST Procedure visit Urogynecology [address] [phone] Kamilah Mcconnell MD 580 [facility] [address] [place] [address] 10/19/2025 11:15 AM EDT Office Visit Internal Medicine - [address] [phone] Linette Regan NP [address] [place] [address] documented as of this encounter Procedures Procedure Name Priority Date/Time Associated Diagnosis Comments COMPLETE BLOOD COUNT Routine 02/12/2025 10:25 AM EDT Vitamin D deficiency, unspecified Essential (primary) hypertension Type 2 diabetes mellitus without complications (CMS/HCC V24, [facility] V28) Age-related osteoporosis without current pathological fracture BASIC METABOLIC PANEL Routine 02/12/2025 10:25 AM EDT Vitamin D deficiency, unspecified Essential (primary) hypertension Type 2 diabetes mellitus without complications ([facility] V24, [facility] V28) Age-related osteoporosis without current pathological fracture documented in this encounter Results * (ABNORMAL) Basic metabolic panel (02/12/2025 10:25 AM EDT) Pathologist [facility] Sodium 141 133 - 145 mmol/L LAB CHEMISTRY METHOD 02/12/2025 4:[address] [facility] Potassium 4.0 3.5 - 5.5 mmol/L LAB CHEMISTRY METHOD 02/12/2025 4:[address] [facility] Chloride 107 96 - 110 mmol/L LAB CHEMISTRY METHOD 02/12/2025 4:[address] [facility] CO2 27 21 - 32 mmol/L LAB CHEMISTRY METHOD 02/12/2025 4:[address] [facility] Anion Gap 7 3 - 11 LAB CHEMISTRY METHOD 02/12/2025 4:[address] [facility] Glucose 147(H) 70 - 100 mg/dL LAB CHEMISTRY METHOD 02/12/2025 4:[address] [facility] BUN 7 5 - 25 mg/dL LAB CHEMISTRY METHOD 02/12/2025 4:[address] [facility] Creatinine 0.61 0.50 - 1.10 mg/dL LAB CHEMISTRY METHOD 02/12/2025 4:[address] [facility] eGFR 88 >=60 mL/min/1. 73m2 LAB CHEMISTRY METHOD 02/12/2025 4:[address] [facility] Comment:Calculation based on the Chronic Kidney Disease Epidemiology Collaboration (CKD-EPI) equation refit without adjustment for race. BUN/Creatinine Ratio 11.5 LAB CHEMISTRY METHOD 02/12/2025 4:45 PM EDT [facility] Calcium 9.5 8.5 - 10.5 mg/dL LAB CHEMISTRY METHOD 02/12/2025 4:45 PM EDT [facility] Blood Venous blood specimen / Unknown Venipuncture / Unknown 02/12/2025 10:25 AM EDT 02/12/2025 11:58 AM EDT us Jelena Kang MD LAB BLOOD ORDERABLES Fin al Result [facility] [address] [place] [address], * (ABNORMAL) Complete blood count (02/12/2025 10:25 AM EDT) WBC 4.4(L) 4.8 - 10.8 K/mcL LAB HEMETOLOGY METHOD 02/12/2025 1:13 PM EDT [facility] RBC 4.40 3.80 - 4.80 M/mcL LAB HEMETOLOGY METHOD 02/12/2025 1:13 PM EDT [facility] Hemoglobin 12.9 11.5 - 16.0 g/dL LAB HEMETOLOGY METHOD 02/12[facility]2025 [facility] Hematocrit 41.9 35.0 - 47.0 % LAB HEMETOLOGY METHOD 02/12/2025 1:13 PM EDT [facility] MCV 95.7 79.0 - 98.0 FL LAB HEMETOLOGY METHOD 02/12/2025 1:13 PM EDT [facility] MCH 29.5 27.0 - 32.0 pcg LAB HEMETOLOGY METHOD 02/12/2025 1:[facility] MCHC 30.8(L) 32.0 - 37.0 g/dL LAB HEMETOLOGY METHOD 02/12/2025 1:13 PM EDT [facility] RDW 13.9 11.0 - 15.0 % LAB HEMETOLOGY METHOD 02/12/2025 1:13 PM EDT [facility] Platelets 308 130 - 400 K/mcL LAB HEMETOLOGY METHOD 02/12/2025 1:13 PM EDT [facility] MPV 10.3 7.0 - 11.0 FL LAB HEMETOLOGY METHOD 02/12/2025 1:13 PM EDT [facility] NRBC 0.0 <1.0 % LAB HEMETOLOGY METHOD 02/12/2025 1:13 PM EDT [facility] NRBC Absolute 0.00 <0.10 K/mcL LAB HEMETOLOGY METHOD 02/12/2025 1:13 PM EDT [facility] Blood Venous blood specimen / Unknown Venipuncture / Unknown 02/12/2025 10:25 AM EDT 02/12/2025 11:58 AM EDT us Jelena Kang MD LAB BLOOD ORDERABLES Fin al Result [facility] [address] [place] [address], documented in this encounter Visit Diagnoses Diagnosis Vitamin D deficiency, unspecified Essential (primary) hypertension Unspecified essential hypertension Type 2 diabetes mellitus without complications (CMS/HCC V24, CMS/HCC V28) Age-related osteoporosis without current pathological fracture documented in this encounter Care Teams Entertainment Usher Relationship Specialty Start Date End Date Kristy Cedillo MD [address] [place], [place] PCP - General Internal Medicine 03/02/25 documented as of this encounter
--- OUTSIDE RECORDS SUMMARY | 2025-07-25 12:09 | XMS_ITS | Data Portability ---
Author Organization [place] - [facility], Allergy Address [address] [address] Care Team Providers Care Community Support Professional Name Role Phone BRAD MILTON Primary Care Provider [phone] BRAD MILTON Referring Provider BRAD MILTON Primary Care Provider BRAD MILTON Referring Provider Assessment Encounter Date Assessment Date Assessment LastModified by Organization Details LastModified Time 03/30/2024 03/30/2024 83 year old female with history of CVA and GERD presents for review of MBS. Previously FOL consistent with acid reflux, no mass or lesion. Modified barium swallow 12/17/2023 demonstrated flash laryngeal penetration without evidence of kitty aspiration on sips of thin barium, otherwise normal swallowing exam. She underwent swallow therapy with improvement. She will continue to follow up with GI for management of GERD. She may follow up as needed. [email or web address] Not available 03/30/2024 13:39:11 Plan of Treatment Reminders Order Date Submit Date Provider Last Modified By Organization Details Last Modified Time Details Appointments None record ed. Lab None record ed. Referral None record ed. Procedures None record ed. Surgeries None record ed. Imaging None record ed. Medication Orders None record ed. Patient TargetsNo targets recorded. Patient InstructionsNo instructions recorded. Reason for Referral None Reported. Results Created Date Observation Date Name Description Value Unit Range Abnormal Flag Note LastModifiedBy Organization Detail LastModifiedTime 03/30/2012/17/2023 minh corado study No observ ation record ed. [email or web address] Not Available 11/2023 14:24:14 Result Notes None recorded. 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; Note: Date Diagnosed : 10/27/2016 2:41 PM (H90.A22) Not Available [facility] 4 02:56:27 Impacted cerumen of bilateral ears [id number] 67577 Active 2016 Impacted cerumen, bilateral ; Note: Date Diagnosed : 10/27/2016 2:13 PM (H61.23) Not Available [facility] 4 02:56:28 Mixed conductiv e and sensorine ural hearing loss of right ear 41239553621 105 Active 2016 Mixed conductiv e and sensorine ural hearing loss, unilatera l, right ear with restricte d hearing on the contralat eral side; Note: Date Diagnosed : 10/27/2016 2:41 PM (H90.A31) Not Available [facility] 4 02:56:28 Otalgia of right ear 1207356750 Active 2016 Otalgia, right ear; Note: Date Diagnosed : 10/27/2016 2:13 PM (H92.01) Not Available [facility] 4 02:56:27 Dysphagia 81312230 Active 2023 Dysphagia , pharyngoe sophageal phase; Note: Date Diagnosed : 10/14/2023 2:14 PM (R13.14) Not Available [facility] 4 02:56:29 Problem Notes None recorded. Medical Equipment None Reported. Allergies Allergen ID Allergen Name Allergen Category Reaction Reaction Severity Criticality Documentation Date Start Date Code Code System Note Provider Name and Address Organization Details Recorded Time 81228 aspirin medicatio n other Not available Not available 12/07/2023 1191 RxNorm React ion: unkno wn, unspe cifie d;; Not Available [facility] 4 00:48:53 Medications Name Sig Start Date Stop Date Status Note LastModified by Organization Details LastModified Time quetiapin e 25 mg tablet 10/13 completed Medicati on ID: [id number] D uration Value: 30 Brand Name: татьяна downey Send Method: E-Prescr ibed Sub s Allowed: subs OK Medic ationGen ericName : quetiapi ne Not Available Not Available Not Available atorvasta tin 40 mg tablet TAKE 1 TABLET BY MOUTH EVERY DAY active Not Available Not Available No t Available cefuroxim e axetil 250 mg tablet TAKE 1 TABLET BY MOUTH TWICE A DAY FOR 5 DAYS active Not Available Not Available No t Available cetirizin e 10 mg tablet active Medicati on ID: [id number] B rand Name: cetirizi ne Send Method: E-Prescr ibed Sub s Allowed: subs OK Speci al Instruct ion: TAKE 1 TABLET BY MOUTH EVERY DAY (NOT COVERED, OVER THE COUNTER) Medicat ionGener icName: cetirizi ne Not Available Not Available Not Available azithromy magy 250 mg tablet TAKE 2 TABLETS BY MOUTH TODAY, THEN TAKE 1 TABLET DAILY FOR 4 DAYS DIRECTED active Not Available Not Available No t Available cefpodoxi me 100 mg tablet TAKE 1 TABLET BY MOUTH TWICE A DAY FOR 5 DAYS active Not Available Not Available No t Available benzonata te 200 mg capsule active Medicati on ID: [id number] B rand Name: benzonat ate Send Method: E-Prescr ibed Sub s Allowed: subs OK Speci al Instruct ion: TAKE 1 CAPSULE BY MOUTH THREE TIMES A DAY NEEDED FOR COUGH Me dication GenericN paddy: benzonat ate Not Available Not Available Not Available metoprolo l succinate ER 50 mg tablet,ex tended release 24 hr TAKE 1 TABLET BY MOUTH EVERY DAY active Not Available Not Available No t Available alendrona te 70 mg tablet active Medicati on ID: [id number] B rand Name: alendron ate Send Method: E-Prescr ibed Sub s Allowed: subs OK Medic ationGen ericName : alendron ate Not Available Not Available Not Available meclizine 12.5 mg tablet TAKE 1 TABLET BY MOUTH 2 TIMES DAILY NEEDED (DIZZINE SS). active Not Available Not Available No t Available clopidogr el 75 mg tablet TAKE 1 TABLET BY MOUTH EVERY DAY active Not Available Not Available No t Available amlodipin e 5 mg tablet TAKE 1 TABLET BY MOUTH EVERY DAY active Not Available Not Available No t Available acetamino phen 500 mg tablet active Medicati on ID: [id number] B rand Name: acetamin ophen Se nd Method: E-Prescr ibed Sub s Allowed: subs OK Speci al Instruct ion: TAKE 1 TABLET BY MOUTH EVERY 4-6 HOURS NEEDED FOR FEVER Me dication GenericN paddy: acetamin ophen Not Available Not Available Not Available butalbita l-acetami nophen-ca ffeine 50 mg-325 mg-40 mg tablet TAKE 1 TABLET BY MOUTH EVERY DAY FOR MIGRAINE NEEDED DIRECTED active Not Available Not Available No t Available oxycodone -acetamin ophen 5 mg-325 mg tablet TAKE 1 TABLET BY MOUTH EVERY 4 HOURS NEEDED FOR PAIN active Not Available Not Available No t Available trazodone 100 mg tablet 10/13 completed Medicati on ID: [id number] D uration Value: 90 Brand Name: trazodon e Send Method: E-Prescr ibed Sub s Allowed: subs OK Medic ationGen ericName : trazodon e Not Available Not Available Not Available amlodipin e 10 mg tablet TAKE 1 TABLET BY MOUTH EVERY DAY active Not Available Not Available No t Available simvastat in 20 mg tablet active Medicati on ID: [id number] B rand Name: simvasta tin Send Method: E-Prescr ibed Sub s Allowed: subs OK Medic ationGen ericName : simvasta tin Not Available Not Available Not Available methimazo le 5 mg tablet 10/13 completed Medicati on ID: [id number] D uration Value: 60 Brand Name: methimaz ole Send Method: E-Prescr ibed Sub s Allowed: subs OK Medic ationGen ericName : methimaz ole Not Available Not Available Not Available omeprazol e 20 mg capsule,d elayed release TAKE 1 CAPSULE BY MOUTH 2 TIMES DAILY (BEFORE MEALS). active Not Available Not Available No t Available hydroxyzi ne HCl 25 mg tablet TAKE 1 TABLET BY MOUTH AT BEDTIME NEEDED (INSOMNI A). *PRIOR AUTH NOT APPROVED * active Not Available Not Available No t Available estradiol 0.01% (0.1 mg/gram) vaginal cream PLEASE USE A PEA-SIZE D AMOUNT ON YOUR FINGER AND PLACE IN THE VAGINA TWICE A WEEK AT NIGHT active Not Available Not Available No t Available Vitamin D2 1,250 mcg (50,000 unit) capsule 10/13 completed Medicati on ID: [id number] B rand Name: Vitamin D2 Send Method: E-Prescr ibed Sub s Allowed: subs OK Medic ationGen ericName : Vitamin D2 Not Available Not Available Not Available ondansetr on 4 mg disintegr ating tablet TAKE 1 TABLET BY MOUTH EVERY 8 HOURS FOR NAUSEA active Not Available Not Available No t Available fluticaso ne propionat e 50 mcg/actua tion nasal spray,marylu pension SPRAY 2 SPRAYS INTO EACH NOSTRIL EVERY DAY active Not Available Not Available No t Available escitalop asher 20 mg tablet active Medicati on ID: [id number] B rand Name: escitalo pram oxalate Send Method: E-Prescr ibed Sub s Allowed: subs OK Medic ationGen ericName : escitalo pram oxalate Not Available Not Available Not Available calcium 600 mg (as carbonate )-vitamin D3 10 mcg (400 unit) tablet TAKE 1 TABLET BY MOUTH TWICE A DAY active Not Available Not Available No t Available trospium ER 60 mg capsule,e xtended release 24 hr TAKE 1 CAPSULE BY MOUTH EVERY DAY active Not Available Not Available No t Available diclofena c 1 % topical gel APPLY 1 G TOPICALL Y 2 TIMES DAILY NEEDED (OSTEOAR THRITIS) . active Not Available Not Available No t Available Vitamin D3 50 mcg (2,000 unit) tablet TAKE 1 TABLET BY MOUTH EVERY DAY active Not Available Not Available No t Available Tussin 100 mg/5 mL oral liquid active Medicati on ID: [id number] B rand Name: Tussin S end Method: E-Prescr ibed Sub s Allowed: subs OK Speci al Instruct ion: TAKE 10 ML BY MOUTH 3 TIMES DAILY NEEDED FOR COUGH FOR UP TO 10 DAYS (OVER THE COUNTER) Medicat ionGener icName: Tussin Not Available Not Available Not Available Lumigan 0.01 % eye drops 10/13 completed Medicati on ID: [id number] D uration Value: 45 Brand Name: Lumigan Send Method: E-Prescr ibed Sub s Allowed: subs OK Speci al Instruct ion: INSTILL 1 DROP INTO THE LEFT EYE AT BEDTIME DIRECTED Medicat ionGener icName: Lumigan Not Available Not Available Not Available Vitals Date Recorded Body height Body mass index (BMI) Body weight Provider Name and Address Organization Details Last Updated DateTime 03/30/2024 167.64 cm 28.2 kg/m2 03148.66 g Luh Barreto [place] - [facility] 03/30/2024 13:16:13 Social History None recorded. Functional Status None recorded. Mental Status None recorded. Family History Nothing Reported. Medical History No medical history recorded. Gynecological HistoryNo gynecological history recorded. Obstetrics History GPAL:G 0 P 0 0 0 0 Past Encounters Encounter ID Performer Location Encounter Start Date Encounter Closed Date Diagnosis/Indication Diagnosis SNOMED-CT Code Diagnosis ICD10 Code Diagnosis IMO Codes Diagnosis Note [id number] SOTO BILLY PA-C [facility] [address] [phone] 03/30/2024 13:03:21 03/30/2024 13:31:59 Dysphagia 87305508 R13.14 Health Concerns Section Related Observation LastModified by Organization Detai ls LastModified Time None Recorded Concern Status LastModified by Organization Details LastModified Time None Recorded Advance Directives Directive None Recorded Payers Insurance Date Sequence Insurance Name Policy Number Policy Oakley Covered Member ID Oakley Member ID Guarantor Name 05/15/2024 1 [facility] MEDIC[place] HMO BLUE (MEDICARE REPLACEMENT HMO) [id number] Radha H Buena [id number] Radha H Buena Notes Date Note Type Note Provider Name and Address Organization Details Recorded Time 03/30/2024 text/html ROS as noted in the HPI 83-year-old female presents for review of barium swallow. She was last evaluated by Dr. Arizmendi back in September for chronic dysphagia and frequent regurgitation. Fiberoptic laryngoscopy was consistent with acid reflux, no masses or lesions were noted. Barium swallow was recommended to exclude GI pathology. Patient suffered a stroke back in November and is recovering well. She received a few sessions of swallow therapy with improvement in swallowing. Denies chocking episodes. Acid reflux is controlled on Omeprazole 20 mg. Recently had cholecystectomy 2 weeks ago. Barium swallow in 2019 with esophageal dysmotility and flash laryngeal penetration occurred, without kitty aspiration. ERNESTO OLIVAS MD [address] [facility] [address], [place], [address], [facility] - [facility] 03/30/2024 16:32:23 OBGyn Episode No OBEpisode recorded.
--- OUTSIDE RECORDS SUMMARY | 2025-07-25 12:09 | XMS_ITS | Encounter Summary ---
Author Organization [place] [address] Care Team Providers Care Booth Supervisor Name Role Phone Kristy Cedillo MD Primary Care Provider [phone] Encounter Details Date Type Department Care Team (Late st Contact Info) Description 03/29/2025 Referral Triage [facility] [facility] [address] [place] [phone] Tamiko Workman Social History Tobacco Use Types [...] care for your loved ones. For example, childbirth educator or elderly care for an older adult? [...] PM EST [facility] [address] [facility] [place] [address] Kristy Cedillo MD [address] [place] 08/07/2025 10:30 AM EST Office Visit Orthopedic Surgery - [place] [address] [facility] [address] [place] [phone] Donna Mcfarlane, JAYDE [address] [place] [address] 08/14/2025 11:00 AM EST Office Visit Neurology - [address] [place] [phone] Eddy [facility]angley MD [facility] [address] [place] [address] 09/18/2025 10:30 AM EST Procedure visit Urogynecology [facility] [address] [place] [address] Kamilah Mcconnell MD [address] [facility] [address] [place] [address] 10/19/2025 11:15 AM EDT Office Visit Internal Medicine - [address] [phone] Linette Regan, TORRI [address] [place], [place] documented as of this encounter Visit Diagnoses Not on filedocumented in this encounter Care Teams Booth Supervisor Relationship Specialty Start Date End Date Kristy Cedillo MD [address] [place] [address] PCP - General Internal Medicine 03/02/25 documented as of this encounter
--- OUTSIDE RECORDS SUMMARY | 2025-07-25 12:09 | XMS_ITS ---
Author Name [facility] Unknown History of Medication Use Medication Directions Dispensed Refills Start Date End Date Stat loperamide (Imodium A-D) 2 mg tablet Take 1 tablet (2 mg total) by mouth 3 (three) times a day if needed for diarrhea for up to 10 days. 03/16/2025 active sertraline (ZOLOFT) 25 mg tablet Take 1 tablet (25 mg total) by mouth 1 (one) time each day. 03/02/2025 active metFORMIN XR (GLUCOPHAGE-XR) 500 mg 24 hr tablet Take 2 tablets (1,000 mg total) by mouth 2 (two) times a day. Do not crush, chew, or split. 02/21/2025 active amLODIPine (NORVASC) 5 mg tablet Take 1 tablet (5 mg total) by mouth 1 (one) time each day. 01/31/2025 active omeprazole (PriLOSEC) [address] capsule TAKE 1 CAPSULE BY MOUTH 2 TIMES DAILY (BEFORE MEALS). 11/15/2024 suspended sulfamethoxazole-trim ethoprim (BACTRIM DS,SEPTRA DS) 800-160 mg per tablet Take 1 tablet by mouth 2 (two) times a day for 10 days. Start taking this medication on 10/28/24 (TWO days before your Botox appointment on 10/30/24). 10/28/2024 active hydrocortisone acetate 0.5 % cream Apply topically 2 (two) times a day. 1-2 applications twice daily as needed for external hemorrhoids. 10/12/2024 active simethicone (Mylanta Gas) 125 mg chewable tablet Chew 1 tablet (125 mg total) every 6 (six) hours if needed for flatulence. 10/12/2024 active timolol (TIMOPTIC) 0.5 % ophthalmic solution 10/12/2024 active acetaminophen-codeine (TYLENOL #3) 300-30 mg per tablet Take 1 tablet by mouth 1 (one) time each day if needed for severe pain. Max Daily Amount: 1 tablet 09/08/2024 active loratadine (CLARITIN) 10 mg tablet Take 1 tablet (10 mg total) by mouth 1 (one) time each day. 09/07/2024 active meclizine (ANTIVERT) 12.5 mg tablet TAKE 1 TABLET BY MOUTH 2 TIMES DAILY NEEDED FOR DIZZINESS. 09/07/2024 active pantoprazole (PROTONIX) 20 mg EC tablet Take 1 tablet (20 mg total) by mouth 2 (two) times a day. Do not crush, chew, or split. 09/07/2024 active solifenacin (VESICARE) 5 mg tablet Take 1 tablet (5 mg total) by mouth 1 (one) time each day. 09/07/2024 active metoprolol succinate (TOPROL-XL) 50 mg 24 hr tablet Take 1 tablet (50 mg total) by mouth 1 (one) time each day. Do not crush or chew. 09/01/2024 active mirtazapine (REMERON) 15 mg tablet TAKE 1 TABLET BY MOUTH EVERYDAY AT BEDTIME 08/17/2024 active clopidogreL (PLAVIX) 75 mg tablet TAKE 1 TABLET BY MOUTH EVERY DAY 08/07/2024 active alendronate (FOSAMAX) 70 mg tablet Take 1 tablet (70 mg total) by mouth every 7 (seven) days. Take in the morning with a full glass of water, on an empty stomach, and do not take anything else by mouth or lie down for the next 30 min. 08/03/2024 active amLODIPine (NORVASC) 10 mg tablet Take 1 tablet (10 mg total) by mouth 1 (one) time each day. 08/01/2024 active atorvastatin (LIPITOR) 40 mg tablet Take 1 tablet (40 mg total) by mouth 1 (one) time each day. 07/25/2024 active calcium carbonate-vitamin D 600 mg-10 mcg (400 unit) per tablet TAKE 1 TABLET BY MOUTH TWICE A DAY 06/20/2024 active fluticasone propionate (FLONASE) 50 mcg/actuation nasal spray SPRAY 2 SPRAYS INTO EACH NOSTRIL EVERY DAY 02/09/2024 active estradioL (ESTRACE) 0.01 % (0.1 mg/gram) vaginal cream Please use a pea-sized amount on your finger and place in the vagina twice a week at night 02/08/2024 active mirabegron (MYRBETRIQ) 50 mg tablet extended release 24 hr 24 hr tablet Take 50 mg by mouth daily. 02/08/2024 active cholecalciferol (VITAMIN D-3) 50 mcg (2,000 unit) tablet Take 1 Tablet by mouth daily. 12/03/2023 active cycloSPORINE (RESTASIS) 0.05 % ophthalmic emulsion Administer 1 drop into both eyes 2 (two) times a day. active dorzolamide-timoloL (COSOPT) 22.3-6.8 mg/mL ophthalmic solution Administer 1 drop into the left eye 2 (two) times a day. active VITAMIN C, ASCORBATE CALCIUM, ORAL Take 1 tablet by mouth daily. 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 active 2023-12-28 [facility]Act [facility] CORONA (dyspnea on exertion) active 2024-12-12 ProblemAct [facility] TB lung, latent active 2020-01-[address] [facility] History of cerebrovascular accident (CVA) with residual deficit active 2023-12-28 ProblemAct [facility] Lumbar radiculopathy active 2022-05-25 ProblemAct [facility] Hypertension active 2021-11-20 ProblemAct [facility] Peripheral edema active 2024-12-12 ProblemAct C [facility] Elevated troponin active 2025-01-28 ProblemAct [facility] CVA (cerebral vascular accident) (CMS/HCC V24, CMS/HCC V28) active 2024-01-24 ProblemAct [facility] Allergic rhinitis active 2005-11-12 ProblemAct [facility] Anxiety active 2015-05-21 ProblemAct [facility] Pulmonary air trapping active 2019-04-03 ProblemAct [facility] Lumbar degenerative disc disease active 2022-01-20 ProblemAct [facility] Depression active 2012-09-22 ProblemAct [facility] Glaucoma active 2018-11-22 ProblemAct [facility] Other fatigue active 2024-12-12 ProblemAct [facility] Dysphagia active 2005-11-12 ProblemAct [facility] Type 2 diabetes mellitus (CMS/HCC V24, CMS/HCC V28) active 2023-08-29 ProblemAct [facility] Primary osteoarthritis of both knees active 2017-01-05 ProblemAct [facility] Atelectasis active 2019-04-03 ProblemAct [facility] Left-sided weakness active 2023-12-28 ProblemAct [facility] Syncopal episodes active 2024-01-24 ProblemAct [facility] Headache active 2005-11-12 ProblemAct [facility] Chest pressure active 2024-12-12 ProblemAct [facility] Chronic anterior uveitis active 2020-01-16 ProblemAct [facility] Osteoarthritis, hand active 2012-10-03 ProblemAct [facility] Vitamin D deficiency active 2012-09-18 ProblemAct [facility] Fibromyalgia active 2016-10-28 ProblemAct [facility] Hyperlipidemia active 2007-04-26 ProblemAct [facility] Multiple thyroid nodules active 2019-03-24 ProblemAct [facility] ERIC positive active 2019-04-03 ProblemAct [facility] Ground glass opacity present on imaging of lung active 2019-04-03 ProblemAct [facility] Cataract active 2006-05-06 ProblemAct [facility] Osteoporosis active 2023-09-08 ProblemAct [facility] Immunizations Vaccine Date Source Lot Number Status Influenza trivalent, 0.5mL ( Fluad) 65yo and older 04/20/2024 [facility] [id number] completed Influenza trivalent, 0.5mL ( Fluad) 65yo and older 04/23/2023 [facility] [id number] completed Td Tetanus diptheria (Tdvax) 7yo and older 10/12/2022 [facility] [id number] completed Influenza trivalent, 0.5mL ( Fluad) 65yo and older 04/23/2022 [facility] [id number] completed Clipboard SARS-CoV-2 COVID-19, mRNA, LNP-S, preservative free 06/17/2021 [facility] [id number] completed Pfizer SARS-CoV-2 COVID-19, mRNA, LNP-S, preservative free 09/28/2020 [id number] completed Pfizer SARS-CoV-2 COVID-19, mRNA, LNP-S, preservative free 08/31/2020 [facility] completed Influenza trivalent, 0.5mL ( Fluad) 65yo and older 05/05/2020 [facility] completed Pneumococcal polysaccharide 23 valent (Pneumovax 23) 2yo and older 05/05/2020 [facility] com pleted Influenza trivalent, 0.5mL ( Fluad) 65yo and older 04/14/2019 [facility] [id number] completed Influenza trivalent, 0.5mL ( Fluad) 65yo and older 04/28/2018 [facility] [id number] completed Influenza trivalent, 0.5mL ( Fluad) 65yo and older 05/12/2017 [facility] [id number] completed Pneumococcal conjugate 13 va lent (Prevnar 13, PCV13) 2mo and older 11/04/2016 [facility] [id number] complet ed Influenza trivalent, 0.5mL, preservative free (Fluarix; FluLaval; Fluzone) ages 6mo and older (Afluria) 3 years and older 07/10/2016 [facility] [id number] completed Influenza trivalent, 0.5mL, preservative free (Fluarix; FluLaval; Fluzone) ages 6mo and older (Afluria) 3 years and older 04/30/2015 [facility] [id number] completed Influenza trivalent, 0.5mL, preservative free (Fluarix; FluLaval; Fluzone) ages 6mo and older (Afluria) 3 years and older 06/01/2013 [facility] [id number] completed Zoster Live 09/18/2012 [facility] completed Tdap Tetanus diptheria acell ular pertussis (Boostrix; Adacel) 7yo and older 09/14/2012 [facility] [id number] completed Influenza trivalent, 0.5mL, preservative free (Fluarix; FluLaval; Fluzone) ages 6mo and older (Afluria) 3 years and older 08/23/2012 [facility] [id number] completed Influenza trivalent, 0.5mL, preservative free (Fluarix; FluLaval; Fluzone) ages 6mo and older (Afluria) 3 years and older 08/13/2011 [facility] [id number] completed Td Tetanus diptheria (Tdvax) 7yo and older 08/13/2011 [facility] [id number] completed Influenza trivalent, 0.5mL, preservative free (Fluarix; FluLaval; Fluzone) ages 6mo and older (Afluria) 3 years and older 05/08/2010 [facility] [id number] completed Pneumococcal polysaccharide 23 valent (Pneumovax 23) 2yo and older 06/06/2009 [facility] [id number] com pleted Influenza trivalent, 0.5mL, preservative free (Fluarix; FluLaval; Fluzone) ages 6mo and older (Afluria) 3 years and older 05/07/2008 [facility] [id number] completed Influenza trivalent, 0.5mL, preservative free (Fluarix; FluLaval; Fluzone) ages 6mo and older (Afluria) 3 years and older 04/26/2007 [facility] [id number] completed Influenza trivalent, 0.5mL, preservative free (Fluarix; FluLaval; Fluzone) ages 6mo and older (Afluria) 3 years and older 05/06/2006 [facility] [id number] completed Encounters Encounter Type Encounter Reason Primary Diagnosis Location Date Ambulatory Unspecified sequelae of cerebral infarction Unspecified sequelae of cerebral infarction [facility] 09/19/2024 Care Team Organization Name Specialty Phone Email Start Date End Da te [facility] 10/04/2024 [facility] 09/19/2024
--- OUTSIDE RECORDS SUMMARY | 2025-07-25 12:09 | XMS_ITS | Encounter Summary ---
Author Organization [employer] [place] [address] Care Team Providers Care Photographer'S Model Name Role Phone Kristy Cedillo MD Primary Care Provider [phone] Encounter Details Date Type Department Care Team (Late st Contact Info) Description 06/25/2025 Results Follow-Up Internal Medicine - [facility] [address] [place] [phone] Rosalind Cardona [place] Social History Tobacco Use [...] for your loved ones. For example, children's zoo caretaker or elderly care for an older adult? [...] PM EST Office Visit [facility] [address] [facility] [place] [address] Kristy Cedillo MD 305 [place], [place] 08/07/2025 10:30 AM EST Office Visit Orthopedic Surgery - [place] 250 175 [facility] 250 [place] [phone] Donna Mcfarlane, JAYDE 175 [place] [address] 08/14/2025 11:00 AM EST Office Visit Neurology - [place] [address] [facility] [place] [phone] Eddy Langley MD [address] [facility] 2112 [place] [address] 09/18/2025 10:30 AM EST Procedure visit Urogynecology [facility] 444 [place] [address] Kamilah Mcconnell MD 580 [facility] 205 [place] [address] 10/19/2025 11:15 AM EDT Office Visit Internal Medicine - [address] [phone] Linette Regan NP [address] [place] [address] documented as of this encounter Visit Diagnoses Not on filedocumented in this encounter Additional Health Concerns Assessment Noted Time PHQ-9 Depression Total Score: 13 06/18/2 025 10:43 AM EST documented as of this encounter Care Teams Photographer'S Model Relationship Specialty Start Date End Date Kristy Cedillo MD [address] [place] [address] PCP - General Internal Medicine 03/02/25 documented as of this encounter
--- OUTSIDE RECORDS SUMMARY | 2025-07-25 12:09 | XMS_ITS | Encounter Summary ---
Author Organization [employer] [place] [address] Care Team Providers Care Assembler Adjuster Name Role Phone Kristy Cedillo MD Primary Care Provider [phone] Encounter Details Date Type Department Care Team (Late st Contact Info) Description 02/02/2025 Lab Requisition [facility] [address] [facility] [place] [address] Jelena Kang MD [address] [id number] Vitamin D deficiency, unspecified; Essential (primary) hypertension; [...] for your loved ones. For example, child psychiatrist or elderly care for an older adult? [...] PM EST Office Visit Internal Medicine - [address] [phone] Kristy Cedillo MD [address] [place] [address] 08/07/2025 10:30 AM EST Office Visit Orthopedic Surgery - [place] 250 175 [facility] 250 [place] [phone] Donna Mcfarlane PA 175 [place] [address] 08/14/2025 11:00 AM EST Office Visit Neurology - [address] [place] [phone] Eddy Langley MD [address] [facility] 2112 [place] [address] 09/18/2025 10:30 AM EST Procedure visit Urogynecology [address] [address] Kamilah Mcconnell MD [address] [facility] 205 [place] [address] 10/19/2025 11:15 AM EDT Office Visit Internal Medicine - [address] [phone] Linette Regan NP [address] [place] [address] documented as of this encounter Procedures Procedure [...] hypertension Type 2 diabetes mellitus without complications ([facility] V24, [facility] V28) Age-related osteoporosis without current pathological fracture documented in this encounter Results * (ABNORMAL) Basic metabolic panel (02/05/2025 8:36 AM EDT) Sodium 142 133 - 145 mmol/L LAB CHEMISTRY METHOD 02/05/2025 3:[address] [facility] Potassium 4.1 3.5 - 5.5 mmol/L LAB CHEMISTRY METHOD 02/05/2025 3:[address] [facility] Chloride 107 96 - 110 mmol/L LAB CHEMISTRY METHOD 02/05/2025 3:[address] [facility] CO2 29 21 - 32 mmol/L LAB CHEMISTRY METHOD 02/05/2025 3:[address] [facility] Anion Gap 6 3 - 11 LAB CHEMISTRY METHOD 02/05/2025 3:[address] [facility] Glucose 194(H) 70 - 100 mg/dL LAB CHEMISTRY METHOD 02/05/2025 3:[address] [facility] BUN 8 5 - 25 mg/dL LAB CHEMISTRY METHOD 02/05/2025 3:[address] [facility] Creatinine 0.62 0.50 - 1.10 mg/dL LAB CHEMISTRY METHOD 02/05/2025 3:[address] [facility] eGFR 87 >=60 mL/min/1. 73m2 LAB CHEMISTRY METHOD 02/05/2025 3:[address] [facility] Comment:Calculation based on the Chronic Kidney Disease Epidemiology Collaboration (CKD-EPI) equation refit without adjustment for race. BUN/Creatinine Ratio 12.9 LAB CHEMISTRY METHOD 02/05/2025 3:23 PM EDT [facility] Calcium 9.1 8.5 - 10.5 mg/dL LAB CHEMISTRY METHOD 02/05/2025 3:[address] [facility] Blood Venous blood specimen / Unknown Venipuncture / Unknown 02/05/2025 8:36 AM EDT 02/05/2025 11:02 AM EDT us Jelena Kang MD LAB BLOOD ORDERABLES Fin al Result [facility] 299 [place] [address], * (ABNORMAL) Complete blood count (02/05/2025 8:36 AM EDT) WBC 4.3(L) 4.8 - 10.8 K/mcL LAB HEMETOLOGY METHOD 02/05/2025 11:[address] [facility] RBC 4.00 3.80 - 4.80 M/mcL LAB HEMETOLOGY METHOD 02/05/2025 11:[address] [facility] Hemoglobin 11.7 11.5 - 16.0 g/dL LAB HEMETOLOGY METHOD 02/05/2025 11:[address] [facility] Hematocrit 38.3 35.0 - 47.0 % LAB HEMETOLOGY METHOD 02/05/2025 11:[address] [facility] MCV 96.2 79.0 - 98.0 FL LAB HEMETOLOGY METHOD 02/05/2025 11:[address] [facility] MCH 29.4 27.0 - 32.0 pcg LAB HEMETOLOGY METHOD 02/05/2025 11:[address] [facility] MCHC 30.5(L) 32.0 - 37.0 g/dL LAB HEMETOLOGY METHOD 02/05/2025 11:[address] [facility] RDW 14.6 11.0 - 15.0 % LAB HEMETOLOGY METHOD 02/05/2025 11:28 AM EDT [facility] Platelets 274 130 - 400 K/mcL LAB HEMETOLOGY METHOD 02/05/2025 11:28 AM EDT [facility] MPV 10.2 7.0 - 11.0 FL LAB HEMETOLOGY METHOD 02/05/2025 11:28 AM EDT [facility] NRBC 0.0 <1.0 % LAB HEMETOLOGY METHOD 02/05/2025 11:28 AM EDT [facility] NRBC Absolute 0.00 <0.10 K/mcL LAB HEMETOLOGY METHOD 02/05/2025 11:28 AM EDT [facility] Blood Venous blood specimen / Unknown Venipuncture / Unknown 02/05/2025 8:36 AM EDT 02/05/2025 11:02 AM EDT us Jelena Kang MD LAB BLOOD ORDERABLES Fin al Result [facility] [address] [place] [address], documented in this encounter Visit Diagnoses Diagnosis Vitamin D deficiency, unspecified Essential (primary) hypertension Unspecified essential hypertension Type 2 diabetes mellitus without complications (CMS/HCC V24, CMS/HCC V28) Age-related osteoporosis without current pathological fracture documented in this encounter Care Teams Assembler Adjuster Relationship Specialty Start Date End Date Kristy Cedillo MD [address] [place], [place] PCP - General Internal Medicine 03/02/25 documented as of this encounter
--- OUTSIDE RECORDS SUMMARY | 2025-07-25 12:09 | XMS_ITS | Encounter Summary ---
Author Organization [employer] [facility] [place] [address] Care Team Providers Care Licensed Mortgage Loan Officer Name Role Phone Kristy Cedillo MD Primary Care Provider [phone] Reason for Visit * Reason Onset Date Comments Botulinum Toxin Injection 07/24/2025 Encounter Details Date Type Department Care Team (Late st Contact Info) Description 07/24/2025 Telephone Urogynecology - [address] [phone] Kamilah Mcconnell MD [address] [place] [address] 205 [place] [address] Social History Tobacco Use Types Packs/Day Years [...] your loved ones. For example, early childhood associate teacher or elderly care for an older adult? [...] as of this encounter Progress Notes * Luz Elena Claire MA - 07/24/2025 9:50 AM EST Left detailed message on daughters voicemail to have юлия stop at the lab for her urine culture in the next two days and to start her antibiotics on Wednesday. Patient has botox appointment on 07/30/2025 Can her antibiotics please be sent into the pharmacy? documented in this encounter Plan of Treatment Upcoming Encounters Date Type Department Care Team (Late st Contact Info) Description 07/30/2025 12:00 PM EST Office Visit Internal Medicine - [address] [phone] Kristy Cedillo MD [address] [place] [address] 08/07/2025 10:30 AM EST Office Visit Orthopedic Surgery - [place] 250 175 [facility] 250 [place] [phone] Donna Mcfarlane PA 175 [place] [address] 08/14/2025 11:00 AM EST Office Visit Neurology - [address] [place] [phone] Eddy Langley MD 1000 [facility] 2112 [place] [address] 09/18/2025 10:30 AM EST Procedure visit Urogynecology - [place] 444 [place] [address] Kamilah Mcconnell MD 580 [facility] 205 [place] [address] 10/19/2025 11:15 AM EDT Office Visit Internal Medicine - [address] [phone] Linette Regan, TORRI 305 [place] [address] Scheduled Orders Name Type Priority Associated Diagnoses Orde r Schedule Culture urine Microbiology Routine Urinary tract infection without hematuria, site unspecified 1 Occurrences starting 07/24/2025 until 07/24/2026 documented as of this encounter Visit Diagnoses Diagnosis Urinary tract infection without hematuria, site unspecified- Primary documented in this encounter Additional Health Concerns Assessment Noted Time PHQ-9 Depression Total Score: 13 025 10:43 AM EST documented as of this encounter Care Teams Licensed Mortgage Loan Officer Relationship Specialty Start Date End Date Kristy Cedillo MD 305 [place] [address] PCP - General Internal Medicine 03/02/25 documented as of this encounter
--- OUTSIDE RECORDS SUMMARY | 2025-07-25 12:09 | XMS_ITS ---
Author Organization [address] [place] [address] [place] [phone] Phone Care Team Providers Care Interventional Pain Physician Name Role Phone Kristy Cedillo MD Primary Care Provider [phone] [employer] Care Management Status:Ongoing (Active) Start date:04/26/2025 Enrollment date:06/26/2025 Related social drivers of health:Access to Healthcare Overview Referral from [facility] provider Case Team Name Relationship Phone Rachael WAKEFIELD(Responsible Staff) Care Man ager [phone] Continued Care and Services Coordination
--- OUTSIDE RECORDS SUMMARY | 2025-07-25 12:09 | XMS_ITS | Patient Health Record ---
Author Organization [facility] Address [address] [place] [address] Care Team Providers Care Archivist Military History Name Role Phone BRAD MILTON Primary Care Provider EDDIE Marino Unavailable [phone] Allergies Allergen (clinical drug ingredient) Drug/Non Drug Allergy documented on EMR Reaction Allergy Type Onset Date Status aspirin Aspirin Unknown Drug Allergy Active Reason For Referral No Information Medications Medication SIG (Take, Route, Frequency, Duration) Notes Start Date End Date Status Vitamin B-12 250 MCG Tablet 1 tab(s) ora lly once a day; Duration: 30 day(s) Active Methotrexate 2.5 MG Tablet 6 tabs orally once a week Active Folic Acid 1 MG Tablet 1 tab(s) orally o nce a day; Duration: 30 day(s) Active Isoniazid 300 MG Tablet 1 tab(s) orally once a day; Duration: 30 day(s) Active Vitamin C 1000 MG Tablet 3 tab(s) orally once a day Active Social History Tobacco Use: Social History Observation Description Date Details (start date - stop date) Former Smoker NA - NA Social History Tobacco Use: Social Info Question Answer Notes Smoking Are you a: former smoker Additional Details Category Social Info Options Details General alcohol use: yes socially drug use: no Coffee/Tea/Soda: yes Coffee, 2 cups per day, Decaf tea Marital Status Living with Problems Problem Type SNOMED Code ICD Code Onset Dates Problem Status W/U Status Risk Notes Problem Fibromyalgia (020366151) Fibromyalgia (M79.7) Active confirmed Problem Primary osteoarthritis (440055154) Primary osteoarthritis involving multiple joints (M15.0) Active confirmed Problem Raised antinuclear antibody (494855214) Positive ERIC (antinuclear antibody) (R76.8) Active confirmed Plan Of Treatment No Information Insurance Providers Payer Name Payer Address Payer Phone Subscriber Number Group Number Insured Name Patient Relationship to Insured Coverage Start Date Coverage End Date [employer] [address] [place] [address] [id number] VERNON DE JESUS Self - patient is the insured Medical (General) History Medical History History ICD Code allergy arthritis migraines osteoarthritis Tuberculosis of Left eye Surgical History Surgery Date(Month/Year) Hysterectomy 1982 Left knee surgery 1992
== END 2025-07-25 11:22 | disposition home or self-care (01) ==
LOC: HO.RHES 10:46
PROVIDERS: PCP Internal Medicine; Visit Provider Internal Medicine Rheumatology
DX: H20.00 Unspecified acute and subacute iridocyclitis (principal); M11.20 Other chondrocalcinosis, unspecified site; M15.4 Erosive (osteo)arthritis; M54.2 Cervicalgia
CPT/HCPCS: 99214; G2211